=== PATIENT | male | born 1960 | race Caucasian/White ===

== ENCOUNTER 2021-08-05 13:05 | Observation (INO) | payer MEDICARE, MEDICAID, SELFPAY ==
[2021-08-05] VITALS (17 sets, daily range): BP systolic 127–158; BP diastolic 62–90; PULSE 88–103; RESP 14–18; TEMP 36.4–36.8; O2SAT 91–96; BMI 34.1; BMI 35.7
--- NOTE | 2021-08-05 06:30 | EGD_PTH ---
PATIENT: SHERWIN COLEY LOC: [facility] U#:[id number] AGE/SX: 60/M ROOM: [facility] RE08/05/[address]: Dr. Cari Woodward MD : 1960 BED: 1 DIS: 08/05/2021 SPEC #: [id number] RECD: 08/05/21 14:19 STATUS: ELVIA GUZMAN #: [id number] MARGARITO: 08/05/21 06:[address]: Jhonatan Walker DEPT: SURGICAL PATHOLOGY RECD BY: Meg Dhillon ENTERED: 08/06/21 09:34 SP TYPE: EGD BIOPSY OT DR: MD Dr. Jose Magallanes MD Tissues: Stomach, NOS Procedures: Surgery Specimen Level IV Comments: @ Ordering doctor for SUIV edited from to @ by RGOOD at 08/06/21 1345 @ Submitting doctor edited from to @ by RGOOD at 08/06/21 0433 HEADER OPERATION: EGD ([facility]), biopsy PRE-OP DIAGNOSIS: Gastroparesis, erosive esophagitis TISSUE SUBMITTED: Greater curvature ulcer biopsy MICROSCOPIC DIAGNOSIS Ulcer, greater curvature of stomach, biopsy: Chronic gastritis. AM:av 08/09/2021 MICROSCOPIC DESCRIPTION Slides are reviewed. GROSS DESCRIPTION Received in fixative is one container labeled with the patient's name and designated greater curvature biopsy. The specimen consists of multiple irregular fragments of light [place] soft tissue that in aggregate measure 1 x 0.6 x 0.1 cm. The specimen is totally submitted in one cassette. / AM:av 08/06/2021 TC:3 CPT: 45510
--- NOTE | 2021-08-05 06:44 | PCM.HP.BLA ---
History and Physical Date of Admission: 08/05/21 60 M who presents to the office today for nausea and vomiting. He has a past medical history of traumatic brain injury and resides in a retirement. Patient was last seen by [facility] 04.28.21 for evaluation of vomiting with concern for gastric outlet obstruction, abnormal CT of abd/pel, elevated LFT. Started on PPI BID. Possible gastric emptying study. EGD performed 04.27.21. EGD ? congestion, erythema and ulceration in lower third of esophagus consistent with severe esophagitis, LA Grade C esophagitis. Retained food seen in upper portion of gastric body with excessive fluid and bile present. Mild erosions and erythema seen in body and antrum of stomach consistent with gastritis. Biopsy ? reactive gastropathy. CT abd/pel 04.25.21. Markedly distended stomach with tapering at pylorus without mass. Filling defect seen within distal left common iliac vein extending into left leg with left leg edema, suspect DVT. Small right pleural effusion. Suspect cholelithiasis. Diagnosed with COVID 04.04.21 with previous online media director feeling that inflammation a direct result of this. Reports reduced emesis frequency occurring only with exertional process during PT. Family member reports that she feels he is doing much better since this episode. Reports 60lb weight loss with estimation of 40lbs being water weight. ROS Const Constitutional: No anorexia, fatigue, fever(s), weight change or sleep problems Eyes Eyes: No change in vision ENT ENT: No abnormal hearing, difficulty swallowing, mouth lesions, tongue swelling or throat swelling Resp Respiratory: No cough or shortness of breath Cardio Cardiology: No chest pain at rest, chest pain with exertion, shortness of breath or dyspnea on exertion Gastro GI: No difficulty swallowing Genitourinary Male: No difficulty urinating or burning urination Musc Musculoskeletal: No joint pain, joint swelling, muscle weakness or decreased muscle mass Skin Skin: No hair loss in leg, yellowing of the eye, itchy eyes, rash, skin ulcer or skin swelling Neuro Neurology: No abnormal hearing, abnormal movements, confusion, unsteady gait/balance or memory loss Psych Psychiatric: No anxiety, No confusion and No memory loss Endo Endocrine: No fatigue or weight change Aller/Imm Allergy/Immunologic: No itchy eyes, throat swelling or tongue swelling Kristofer/Lymp Hematologic/Lymphatic: No easy bleeding, easy bruising or enlarged lymph nodes Exam Const General: cooperative and comfortable Nutritional Appearance: average body habitus and well nourished [facility] Head: normal to inspection Ears: hearing grossly normal bilaterally Nose: external nose normal Face and sinus: normal facial exam Mouth: oral mucosae normal Throat: posterior oropharynx normal Eyes General: appearance normal, both eyes and all related structures Neck Neck: normal visual inspection Chest Chest palpation & inspection: normal inspection of the chest and normal palpation of entire chest wall Resp Effort & Inspection: normal respiratory effort Auscultation: Bilateral: Clear to Auscultation Cardio Palpation: normal PMI Rate: regular rate Rhythm: regular rhythm GI Inspection: normal to inspection Auscultation: normal bowel sounds Percussion: normal to percussion Palpation: no hepatosplenomegaly Skin General: no rashes or lesions noted Neuro General: patient alert Extrem General: normal to inspection Psych Affect: normal affect Assessment and Plan Assessment and Plan (1) Gastroparesis: Status: Acute Plan - Dr. Israel Friend, DO: I suspect that he has gastroparesis secondary to diabetes mellitus. However we will assess for any inflammation or ulcerations in the distal stomach as was noted previously on his upper endoscopy. At this time he is having less bloating, less nausea and indigestion. He is not on any prokinetics for the stomach. This may have to be addressed in the future. I did express with his power of insurance defense attorney who is his sister that he may need a gastric emptying study. (2) Erosive esophagitis: Status: Acute Plan - Dr. Israel Friend, DO: Patient at this time is on Protonix 40 mg twice a day. We will continue this until he has an upper endoscopy. Hopefully if this is okay we will be able to titrate this to once a day plus or minus a H2 receptor cathleen in the evening. I have re-examined the patient. There are no clinical changes since date of exam.
[2021-08-05] MEDS: Lactated Ringers 1,000 ML 15 ML IV (08:00)
--- NOTE | 2021-08-05 08:54 | OP.EGD_ITS ---
Patient Name: Chacorta Edwards Procedure Date: 08/05/2021 6:17 AM Date of : 1960 Age: 60 Procedure: Upper GI endoscopy Indications: Epigastric abdominal pain Providers: Jhonatan Walker DO Medicines: See the Anesthesia note for documentation of the administered medications Patient Profile: This is a 60 year old male. Refer to note in patient chart for documentation of history and physical. Patient has symptoms of acute epigastric abdominal pain. Complications: No immediate complications. Procedure: Pre-Anesthesia Assessment: - Prior to the procedure, a History and Physical was performed, and patient medications and allergies were reviewed. The patient is competent. The risks and benefits of the procedure and the sedation options and risks were discussed with the patient. All questions were answered and informed consent was obtained. Patient identification and proposed procedure were verified by the physician in the pre-procedure area. Mental Status Examination: alert and oriented. Airway Examination: normal oropharyngeal airway and neck mobility. Respiratory Examination: clear to auscultation. CV Examination: normal. Prophylactic Antibiotics: The patient does not require prophylactic antibiotics. Prior Anticoagulants: The patient has taken no previous anticoagulant or antiplatelet agents. ASA Grade Assessment: II - A patient with mild systemic disease. After reviewing the risks and benefits, the patient was deemed in satisfactory condition to undergo the procedure. The anesthesia plan was to use moderate sedation / analgesia (conscious sedation). Immediately prior to administration of medications, the patient was re-assessed for adequacy to receive sedatives. The heart rate, respiratory rate, oxygen saturations, blood pressure, adequacy of pulmonary ventilation, and response to care were monitored throughout the procedure. The physical status of the patient was re-assessed after the procedure. After obtaining informed consent, the endoscope was passed under direct vision. Throughout the procedure, the patient's blood pressure, pulse, and oxygen saturations were monitored continuously. The gastroscope was introduced through the mouth, and advanced to the second part of duodenum. The upper GI endoscopy was accomplished without difficulty. The patient tolerated the procedure well. Moderate Sedation: Moderate (conscious) sedation was administered by the endoscopy nurse and supervised by the endoscopist. The patient's oxygen saturation, heart rate, blood pressure and response to care were monitored. Total physician intraservice time was 15 minutes. Scope In: 8:36:57 AM Scope Out: 8:43:02 AM Total Procedure Duration Time 0 hours 6 minutes 5 seconds Findings: The examined esophagus was normal. Two non-bleeding cratered gastric ulcers with no stigmata of bleeding were found on the greater curvature of the stomach. The largest lesion was 4 mm in largest dimension. Biopsies were taken with a cold forceps for histology. Verification of patient identification for the specimen was done. Estimated blood loss was minimal. The second portion of the duodenum was normal. Impression: - Normal esophagus. - Non-bleeding gastric ulcers with no stigmata of bleeding. Biopsied. - Normal second portion of the duodenum. Recommendation: - Observe patient in GI recovery unit for ongoing care. - Resume previous diet. - Continue present medications. - Await pathology results. Procedure Code(s): --- Professional --- 97695, Esophagogastroduodenoscopy, flexible, transoral; with biopsy, single or multiple 57505, 59, Moderate sedation services provided by the same physician or other qualified health progressive care unit registered nurse performing the diagnostic or therapeutic service that the sedation supports, requiring the presence of an independent trained observer to assist in the monitoring of the patient's level of consciousness and physiological status; initial 15 minutes of intraservice time, patient age 5 years or older CPT copyright 2017 [employer]. All rights reserved. The codes documented in this report are preliminary and upon nurse tech review may be revised to meet current compliance requirements. Jhonatan Walker DO 08/05/2021 8:53:47 AM This report has been signed electronically. Number of Addenda: 1 Note Initiated On: 08/05/2021 6:17 AM Addendum Number: 1 Addendum Date: 02/16/2022 6:26:15 AM MAC was used as sedation for this procedure. Jhonatan Walker DO 02/16/2022 6:26:21 AM This report has been signed electronically.
--- NOTE | 2021-08-05 08:54 | OP.CCLET_ITS ---
02/16/2022 Gene Cr Re : Upper GI endoscopy procedure for Chacorta Edwards Dear Shaye This procedure was performed on July. My impressions and recommendations are as follows: Impressions : - Normal esophagus. - Non-bleeding gastric ulcers with no stigmata of bleeding. Biopsied. - Normal second portion of the duodenum. Recommendations : - Observe patient in GI recovery unit for ongoing care. - Resume previous diet. - Continue present medications. - Await pathology results. My findings are described in the full procedure note, which is enclosed. If I can be of further assistance, please feel free to contact me at . Sincerely, Jhonatan Walker DO 08/05/2021 8:53:47 AM This report has been signed electronically.
--- NOTE | 2021-08-05 09:29 | EKG12_ITS ---
Test Reason : PREOP Blood Pressure : / mmHG Vent. Rate : 096 BPM Atrial Rate : 096 BPM P-R Int : 112 ms QRS Dur : 130 ms QT Int : 386 ms P-R-T Axes : 052 -38 043 degrees QTc Int : 487 ms Normal sinus rhythm with sinus arrhythmia Left axis deviation Right bundle branch block Abnormal ECG No previous ECGs available Confirmed by BIJAN MARTINEZ, ANDRES ([id number]), editor school photograph CINDY FRIAS ([id number]) on 08/10/2021 10:45:46 AM Referred By: Jose Cr Confirmed By:ANDRES THAKKAR MD
--- NOTE | 2021-08-05 10:39 | SUR.PHASEI ---
have spoke to [facility] and trying to obtain records from pt hospitalization in 05/11 for DVT's per records sent from [facility]. Hospitalist consulted through Dr Denise from Dr walden when attempt to plkace IV through Ultrasound possible DVT. Instructed to hold pt in pacu until seen by hospitalist.
--- NOTE | 2021-08-05 12:56 | EKG12_ITS ---
Test Reason : Blood Pressure : / mmHG Vent. Rate : 088 BPM Atrial Rate : 088 BPM P-R Int : 122 ms QRS Dur : 124 ms QT Int : 390 ms P-R-T Axes : 059 -04 051 degrees QTc Int : 471 ms Normal sinus rhythm with sinus arrhythmia Right bundle branch block Abnormal ECG Confirmed by NADIYA MARTINEZ, CLARA ([id number]), supervising editor news reel CINDY FRIAS ([id number]) on 08/11/2021 8:57:17 AM Referred By: Jose Cr Confirmed By:CLARA HEARN MD
--- NOTE | 2021-08-05 13:07 | VDLE_ITS ---
Reason For Study: swelling RIGHT LEFT GSV is normal. GSV is normal. CFV is compressible, spontaneous, phasic, T/P Trunk is compressible. competent and demonstrates normal PTV is compressible. augmentation. LT PerV is compressible. FV is compressible, spontaneous, phasic, CFV, FV, POP V ,and Profunda V are partially competent and demonstrates normal compressible with decreased flow. augmentation. POP V is compressible, spontaneous, phasic, competent and demonstrates normal augmentation. T/P Trunk is compressible. PTV is compressible. RT PerV is compressible. Procedure This is a venous duplex using B-mode, color flow and spectral Doppler. Exam performed portable in patient room. Fair technical qaulity. Pt is very noncompliant. Pt would not allow the window curtains to be shut or the lights to be turned off. Difficult to see images. A preliminary report was called and/or faxed to PCU kiln charger. VL/Venous Duplex US - Rey Extrem Interpretation Summary There is no evidence of right lower extremity deep vein thrombosis. Partially c ompressible left common femoral, femoral, popliteal and profunda femoral veins suspicous for rony p venous thrombosis. Patent and compressible bilateral great saphenous veins Non-compliant patient Ordering Physician: Cari Woodward Referring Physician: Jose Cr Performed By: Bernardo Gonzales RVT
--- NOTE | 2021-08-05 13:08 | VDUE_ITS ---
Reason For Study: swelling Right Proximal Left Proximal Unable to image right IJ due to line. Left jugular vein is spontaneous, widely Right subclavian vein is spontaneous, widely patent, phasic, with no intraluminal patent, phasic, with no intraluminal echogenicity noted. echogenicity noted. Left subclavian vein is spontaneous, widely Right Lower Arm patent, phasic, with no intraluminal Right radial vein is compressible. echogenicity noted. Right ulnar vein is compressible. Left Arm Right Arm Left axillary vein is spontaneous, patent, Right axillary vein is spontaneous, patent, phasic, competent, compressible and phasic, competent, compressible and demonstrates augmentation. demonstrates augmentation. Left brachial vein is compressible. Right brachial vein is compressible. Left cephalic vein is compressible. Right cephalic vein is compressible. Left basilic vein is compressible. Right basilic vein is compressible. Left Lower Arm Fair technical qaulity. Pt is very Left radial vein is compressible. noncompliant. Pt would not allow the window Left ulnar vein is compressible. curtains to be shut or the lights to be turned off. Difficult to see images. Difficult to image L arm due to contractures. Prelim to the PCU furnace charger. Images for this study are attached to the LE VDU. VL/Venous Duplex US - Rey Extrem Interpretation Summary No evidence for acute deep venous thrombosis bilateral upper extremities with p atent, compressible bilateral cephalic and basilic veins but very non-compliant patient and difficu lt examination of fair quality Ordering Physician: Cari Woodward Referring Physician: Jose Cr Performed By: Bernardo Gonzales RVT ?
[2021-08-05 14:01] LABS: Absolute Lymphocyte Count 1.68 X10^3/uL (0.83-4.51); Absolute Neutrophil Count 6.7 X10^3/uL (2.0-7.7); Basophil# 0.05 X10^3/uL; Basophil% 0.5 % (0-1); Eosinophil# 0.45 X10^3/uL; Eosinophils% 4.7 % (0-5); Hematocrit 42.4 % (40-54); Hemoglobin 14.4 g/dL (13.0-16.5); Lymphocyte # 1.68 X10^3/ul (0.83-4.51); Lymphocyte % 17.4 % (19-41); Mean Corpuscular Hgb 31.1 pg (27.0-32.0); Mean Corpuscular Volume 91.6 fL (80-94); Monocyte# 0.72 X10^3/uL; Monocyte% 7.5 % (0-10); NRBC Flagged by Analyzer 0 % (0-5); Neutrophil # 6.69 X10^3/uL (2.7-7.7); Neutrophil % 69.5 % (47-70); Platelet Count 326 K/mm3 (150-450); RBC Distribution Width CV 12.6 % (11.6-14.6); RBC Distribution Width SD 41.7 fl (35.1-43.9); Red Blood Count 4.63 M/mm3 (4.6-6.2); White Blood Count 9.6 K/mm3 (4.4-11.0)
[2021-08-05 14:38] LABS: ALB/GLOB Ratio 0.6 RATIO (0.9-2.4); AST(SGOT) 13 U/L (15-37); Alanine Aminotransfer ALT/SGPT 36 U/L (16-61); Albumin, Serum 2.8 g/dL (3.2-5.0); Alkaline Phosphatase 107 U/L (45-117); Anion Gap 4 (5-15); BUN 15 mg/dL (7-18); BUN/Creat Ratio 20.1 RATIO (10-20); Calcium,Total 8.8 mg/dL (8.5-10.1); Chloride 98 mmol/L (98-107); Creatinine, Serum 0.75 mg/dL (0.70-1.30); EST Glomerular Filtration Rate 113 mL/min (>60); Est Glom Filt Rate - Afr Amer 136 mL/min (>60); Estimated Creatinine Clearance 85.51 ml/min; Globulin 4.5 g/dL (2.2-4.2); Glucose 259 mg/dL (74-106); Potassium 3.9 mmol/L (3.5-5.1); Protein, Total 7.3 g/dL (6.4-8.2); Sodium Level 135 mmol/L (136-145)
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
--- NOTE | 2021-08-05 15:23 | TREXTCAR_ITS ---
Diet 08/05/21 15:00 Diet: Consistent Carb - Calorie Controlled Food consistency:: Regular Liquid Consistency:: Regular/Thin Dietary Modifications:: Cardiac / Heart Healthy Is pt able to select menu?: No How many daily calories?: 1800 calorie Routine Orders/Code Status Keep PO Greater than or Equal to (%): 94 Routine Lab Work: CBC (within 3 days) and BMP (within 3 days) Therapies Weight Bearing: Weight bearing as tolerated Physical Therapy: Eval and Treat Occupational Therapy: Eval and Treat Allergies/Procedures Done in Hospital Allergies codeine Allergy (Intermediate, Verified 08/05/21 06:08) unknown lorazepam Allergy (Intermediate, Verified 08/05/21 06:08) unknown morphine Allergy (Intermediate, Verified 08/05/21 06:08) unknown Sulfa (Sulfonamide Antibiotics) Allergy (Intermediate, Verified 08/05/21 06:08) unknown Procedures: None Type of Care/Length of Stay Estimated LOS: Convalescent Care Less Than 30 days Type of Care Needed: Skilled Rehab Potential: Good Prognosis: Good Additional Orders/Day of Discharge Day of Discharge: 08/05/21 Dietary and Speech Recommendations Dietitian Recommendations/Changes: Will change diet to 1800 calorie/consistent carbohydrate; cardiac. ONS as needed once PO established at meals. Discharge Plan Admission Admit Date/Time: 08/05/21 13:05 Primary Reason for Your Visit: EGD Attending Provider: Cari Woodward Primary Care Provider: Jose Cr Instructions Additional Instructions / Restrictions: Continue to take your medications as prescribed. Follow-up with Dr. Walker as scheduled. Discharge Orders/Prescriptions Prescriptions: Continued apixaban 5 mg tablet 5 mg PO BID RF: 0 sucralfate [Carafate] 1 gram tablet 1 g PO QACHS RF: 0 cholecalciferol (vitamin D3) 10 mcg (400 unit) capsule 10 mcg PO DAILY RF: 0 cilostazol 100 mg tablet 100 mg PO BID RF: 0 fluticasone propionate [Flonase Allergy Relief] 50 mcg/actuation spray,suspension 1 spray intranasal DAILY RF: 0 arginine (L-arginine) 500 mg capsule 500 mg PO DAILY RF: 0 pantoprazole 40 mg tablet,delayed release (DR/EC) 40 mg PO BID RF: 0 ramipril 2.5 mg capsule 2.5 mg PO QHS RF: 0 potassium chloride 10 mEq Capsule, Extended Release 10 meq PO DAILY RF: 0 atorvastatin 20 mg Tablet 20 mg PO QHS RF: 0 zinc acetate 25 mg (zinc) Capsule 25 mg PO DAILY RF: 0 carbamazepine 100 mg Tablet Extended Release 12 Hr 200 mg PO DAILY RF: 0 capsicum-garlic 200-300 mg Capsule 2 cap PO QHS RF: 0 flaxseed oil 1,000 mg Capsule 1,000 mg PO DAILY RF: 0 metformin 1,000 mg Tablet 1,000 mg PO BID RF: 0 gabapentin [Neurontin] 300 mg Capsule 300 mg PO QHS RF: 0 bisacodyl 5 mg Tablet,Delayed Release (Dr/Ec) 5 mg PO QHS RF: 0 furosemide 20 mg Tablet 20 mg PO DAILY RF: 0 gabapentin [Neurontin] 100 mg Capsule 100 mg PO BID RF: 0 vitamin B complex Capsule 1 cap PO DAILY RF: 0 carbamazepine 100 mg Capsule, Er Multiphase 12 Hr 100 mg PO QHS RF: 0 Calcium Magnesium 500 mg calcium -250 mg Tablet 70 - 500 tab PO BID RF: 0 Referrals / Follow Up: Jhonatan Walker DO [STAFF PHYSICIAN] - Within 2 Weeks Jose Cr MD [Primary Care Provider] - Within 2 Weeks Disposition Disposition (needs filled in before D/C Order can be placed): Detention Facility
--- NOTE | 2021-08-05 15:24 | DS.PCM_ITS ---
Providers Date of Admission: 08/05/21 Date of Discharge: 08/05/21 Primary Care Physician: Dr. Jose Cr MD Diagnosis Discharge Diagnosis (1) Erosive esophagitis: Status: Acute Code(s): K22.10 - Ulcer of esophagus without bleeding (2) Gastroparesis: Status: Acute Code(s): K31.84 - Gastroparesis Medications at Discharge Home Medications apixaban 5 mg tablet 5 mg PO BID 06/03/21 arginine (L-arginine) 500 mg capsule 500 mg PO DAILY 06/03/21 cholecalciferol (vitamin D3) 10 mcg (400 unit) capsule 10 mcg PO DAILY 06/03/21 cilostazol 100 mg tablet 100 mg PO BID 06/03/21 fluticasone propionate 50 mcg/actuation nasal spray,suspension 1 spray INTRANASAL DAILY 06/03/21 pantoprazole 40 mg tablet,delayed release 40 mg PO BID tab 06/03/21 ramipril 2.5 mg capsule 2.5 mg PO QHS 06/03/21 sucralfate 1 gram tablet 1 g PO QACHS 06/03/21 Calcium Magnesium 70 - 500 tab PO BID 08/04/21 atorvastatin 20 mg PO QHS 08/04/21 bisacodyl 5 mg PO QHS 08/04/21 capsicum-garlic 2 cap PO QHS 08/04/21 carbamazepine 100 mg PO QHS 08/04/21 carbamazepine 200 mg PO DAILY 08/04/21 flaxseed oil 1,000 mg PO DAILY 08/04/21 furosemide 20 mg PO DAILY 08/04/21 gabapentin [Neurontin] 100 mg PO BID 08/04/21 gabapentin [Neurontin] 300 mg PO QHS 08/04/21 metformin 1,000 mg PO BID 08/04/21 potassium chloride 10 meq PO DAILY 08/04/21 vitamin B complex 1 cap PO DAILY 08/04/21 zinc acetate 25 mg PO DAILY 08/04/21 Hospital Course Operations None Procedures EGD Summary of Care Provided Minutes Spent on Discharge: 35 Hospital Course: 60-year-old male with past medical history of traumatic brain injury/bipolar disorder, COPD,vascular dementia, history of CVA, type II DM, DVT of the left lower extremity as well as upper extremity, seizure disorder, resident in a long-term who came for outpatient EGD. Patient had been worked up for concern for gastric outlet obstruction. He had an abnormal CT of abdomen and pelvis with elevated LFTs in the outpatient. He is on PPI twice daily. While being prepped for the EGD, assess for peripheral IV were difficult to get. Anesthesia putting a central line. In evaluating his vasculature, patient was felt to have a right upper extremity DVT. There was also concern for a left lower extremity DVT. For review of his medical records, patient has history of left lower extremity DVT. He was admitted to the PCU, his vitals were stable. He underwent duplex ultrasound of his upper and lower extremities bilaterally. Findings were negative for any acute DVT. There was findings in the left common femoral, femoral, popliteal and profunda veins were partially compressible with decreased flow suggestive of old DVT. Patient's vitals continue to be stable. Discussed with ayesha NOWAK for discharge b ack to the halfway facility. Patient's care was discussed with his sister who is his power of attorney law clerk, all questions were answered. Physical Exam Narrative Physical exam: General: Alert, Oriented to self, paranoid, comfortable, not pale, not jaundiced, HEENT: Atraumatic, right IJ access Oral: Moist Mucosa Neck: Supple Lungs: Diminished to auscultation Cardiovascular: HS I+II, regular, no murmurs Abdomen: Bowel Sounds Present, Soft, Non Tender Extremities: Bilateral lower extremity edema +1 with evidence of dark venous changes. Contracture of the left upper extremity Skin: No rashes, No breakdown Neurological: Grossly intact Psych/Mental Status: Appropriate Weight / BMI Weight Weight: 94.5 kg Body Mass Index (BMI) 35.7 ABG / Lab / Microbiology Data Result Diagrams: 08/05/21 13:50 08/05/21 13:50 Laboratory: Laboratory Results - last 24 hr 08/05/21 13:50: WBC 9.6, RBC 4.63, Hgb 14.4, Hct 42.4, MCV 91.6, MCH 31.1, MCHC 34.0, RDW Std Deviation 41.7, RDW Coeff of Janice 12.6, Plt Count 326, MPV 10.0, Immature Gran % (Auto) 0.400, Neut % (Auto) 69.5, Lymph % (Auto) 17.4 L, [place] % (Auto) 7.5, Eos % (Auto) 4.7, Baso % (Auto) 0.5, Absolute Neuts (auto) 6.7, Absolute Lymphs (auto) 1.68, Nucleated RBC % 0 08/05/21 13:50: Sodium 135 L, Potassium 3.9, Chloride 98, Carbon Dioxide 33.0 H, Anion Gap 4 L, BUN 15, Creatinine 0.75, Estim Creat Clear Calc 85.51, Est GFR (MDRD) Af Amer 136, Est GFR (MDRD) Non-Af 113, BUN/Creatinine Ratio 20.1 H, Glucose 259 H, Calcium 8.8, Total Bilirubin 0.20, AST 13 L, ALT 36, Alkaline Phosphatase 107, Total Protein 7.3, Albumin 2.8 L, Globulin 4.5 H, Albumin/Globulin Ratio 0.6 L Meaningful Use Info Meaningful Use Diagnoses (Choose all that apply): None applicable Discharge Plan Admission Admit Date/Time: 08/05/21 13:05 Primary Reason for Your Visit: EGD Attending Provider: Cari Woodward Primary Care Provider: Jose Cr Instructions Additional Instructions / Restrictions: Continue to take your medications as prescribed. Follow-up with Dr. Walker as scheduled. Discharge Orders/Prescriptions Prescriptions: Continued apixaban 5 mg tablet 5 mg PO BID RF: 0 sucralfate [Carafate] 1 gram tablet 1 g PO QACHS RF: 0 cholecalciferol (vitamin D3) 10 mcg (400 unit) capsule 10 mcg PO DAILY RF: 0 cilostazol 100 mg tablet 100 mg PO BID RF: 0 fluticasone propionate [Flonase Allergy Relief] 50 mcg/actuation sp ray,suspension 1 spray intranasal DAILY RF: 0 arginine (L-arginine) 500 mg capsule 500 mg PO DAILY RF: 0 pantoprazole 40 mg tablet,delayed release (DR/EC) 40 mg PO BID RF: 0 ramipril 2.5 mg capsule 2.5 mg PO QHS RF: 0 potassium chloride 10 mEq Capsule, Extended Release 10 meq PO DAILY RF: 0 atorvastatin 20 mg Tablet 20 mg PO QHS RF: 0 zinc acetate 25 mg (zinc) Capsule 25 mg PO DAILY RF: 0 carbamazepine 100 mg Tablet Extended Release 12 Hr 200 mg PO DAILY RF: 0 capsicum-garlic 200-300 mg Capsule 2 cap PO QHS RF: 0 flaxseed oil 1,000 mg Capsule 1,000 mg PO DAILY RF: 0 metformin 1,000 mg Tablet 1,000 mg PO BID RF: 0 gabapentin [Neurontin] 300 mg Capsule 300 mg PO QHS RF: 0 bisacodyl 5 mg Tablet,Delayed Release (Dr/Ec) 5 mg PO QHS RF: 0 furosemide 20 mg Tablet 20 mg PO DAILY RF: 0 gabapentin [Neurontin] 100 mg Capsule 100 mg PO BID RF: 0 vitamin B complex Capsule 1 cap PO DAILY RF: 0 carbamazepine 100 mg Capsule, Er Multiphase 12 Hr 100 mg PO QHS RF: 0 Calcium Magnesium 500 mg calcium -250 mg Tablet 70 - 500 tab PO BID RF: 0 Referrals / Follow Up: Jhonatan Walker DO [STAFF PHYSICIAN] - Within 2 Weeks Jose Cr MD [Primary Care Provider] - Within 2 Weeks Disposition Disposition (needs filled in before D/C Order can be placed): [facility]irement Facility Charges/Coding Visit Charges OBSV E&M: 40986 Observation care discharge
--- NOTE | 2021-08-05 15:37 | CASEMGMT ---
MIS was informed patient will be sent back today. Patient is from [facility]. 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 MIS then called [facility] and spoke with Lisset. Lisset said that is fine if patient returns today. Patient's sister was texting her information. MIS will fax orders. MIS faxed orders to [facility]. Madiha Car DIRECT SERVICE WORKER [employer]
--- NOTE | 2021-08-05 16:00 | NURSING ---
Patient verbally aggressive towards staff, cursing and belligerent. Giving gestures such as the middle finger.
[2021-08-06 07:16] LABS: Bedside Glucose 266 mg/dL (74-106)
== END 2021-08-05 15:17 | disposition skilled nursing facility (03) ==
LOC: EN 13:10 → PCU 13:10
PROVIDERS: Internal Medicine Gastroenterology; Admitting Provider Internal Medicine; PCP Family Medicine; Referring Provider Family Medicine; Visit Provider Internal Medicine
PROC: 0DJ08ZZ Inspection of Upper Intestinal Tract, Via Natural or Artificial Opening Endoscopic (ICD-10-PCS; CPT 43235; principal; 2021-08-05 06:25)
DX: E11.43 Type 2 diabetes mellitus with diabetic autonomic (poly)neuropathy (principal); F01.50 Vascular dementia, unspecified severity, without behavioral disturbance, psychotic disturbance, mood disturbance, and anxiety; J44.9 Chronic obstructive pulmonary disease, unspecified; F31.9 Bipolar disorder, unspecified; G40.909 Epilepsy, unspecified, not intractable, without status epilepticus; K20.80 Other esophagitis without bleeding; F17.200 Nicotine dependence, unspecified, uncomplicated; K31.84 Gastroparesis; E78.5 Hyperlipidemia, unspecified; K25.9 Gastric ulcer, unspecified as acute or chronic, without hemorrhage or perforation; I10 Essential (primary) hypertension; K22.10 Ulcer of esophagus without bleeding; Z79.02 Long term (current) use of antithrombotics/antiplatelets; Z79.01 Long term (current) use of anticoagulants; Z79.899 Other long term (current) drug therapy; Z79.84 Long term (current) use of oral hypoglycemic drugs; Z86.16 Personal history of COVID-19; Z86.718 Personal history of other venous thrombosis and embolism; Z87.820 Personal history of traumatic brain injury; R94.31 Abnormal electrocardiogram [ECG] [EKG]; I45.10 Unspecified right bundle-branch block
CPT/HCPCS: 43239; 36415; 80053; 82962; 85025; 88305; 93005; 93970; 97802; 99218; 99406; J7120; G0378; J2405

== ENCOUNTER 2023-01-11 11:11 | Inpatient (IN) | payer MEDICARE, MEDICAID, SELFPAY ==
[2023-01-11] VITALS (9 sets, daily range): BP systolic 102–134; BP diastolic 58–85; PULSE 88–102; RESP 17–22; TEMP 36.4–37.3; O2SAT 93–100; BMI 33.2
--- NOTE | 2023-01-11 11:42 | CT_ITS ---
STUDY: CT ABDOMEN AND PELVIS WITH CONTRAST - URINARY TRACT REASON FOR EXAM: Male, 62 years old. Pain, ileus RADIATION DOSAGE (If Supplied By Facility): CTDIvol = ( 15.28 ) mGy, DLP = ( 1317.00 ) mGycm TECHNIQUE: IV 100mL Isovue-300 was administered. Transaxial images were obtained from the dome of the diaphragm to the symphysis pubis subsequent to intravenous contrast administration. Multiplanar coronal and sagittal images were reformatted. Individualized Dose Optimization Techniques Were Used For This CT. COMPARISON: FINDINGS: There are bilateral pleural effusions associated with dependent consolidation within the lower lobes. The visualized portions of the heart are within normal limits. There is circumferential wall thickening of the distal esophagus and gastroesophageal junction. There is a retained calcified appearing round focus within the distal esophagus/gastroesophageal junction, may reflect a pill. Normal liver. There is nonvisualization of the gallbladder. Normal spleen. Normal pancreas. Normal bilateral adrenal glands. There is a dilated gas-filled stomach. Normal small intestine. There is circumferential wall thickening of the sigmoid colon and rectum. The appendix is visualized and appears normal. There is diffuse atherosclerotic calcification of the abdominal aorta, without a demonstrated aneurysm. No retroperitoneal adenopathy. Normal right kidney. Normal left kidney. There is a suprapubic Ricci catheter in place. There is bladder wall thickening. Normal osseous structures. CT/Abdomen/Pelvis W IV Cont ONLY IMPRESSION: Dilated and gas filled stomach concerning for gastric outlet obstruction. Circumferential wall thickening of the sigmoid colon and rectum concerning for proctocolitis. Circumferential wall thickening of the bladder consistent with cystitis. Circumferential wall thickening of the distal esophagus which may be secondary to esophagitis; there is associated retained calcified tablet within the distal esophagus/gastroesophageal junction. Small bilateral pleural effusions associated with lower lobe dependent consolidation. Atherosclerosis. Electronically Signed: Tahria Ching MD at 13:01 EDT ,
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
[2023-01-11 11:58] LABS: Absolute Lymphocyte Count 1.65 X10^3/uL (0.83-4.51); Absolute Neutrophil Count 14.5 X10^3/uL (2.0-7.7); Basophil# 0.05 X10^3/uL; Basophil% 0.3 % (0-1); Eosinophil# 0.58 X10^3/uL; Eosinophils% 3.2 % (0-5); Hematocrit 31.2 % (40-54); Hemoglobin 10.1 g/dL (13.0-16.5); Lymphocyte # 1.65 X10^3/ul (0.83-4.51); Lymphocyte % 9.2 % (19-41); Mean Corp Hgb Conc 32.4 g/dL (32-36); Mean Corpuscular Hgb 28.5 pg (27.0-32.0); Mean Corpuscular Volume 87.9 fL (80-94); Mean Platelet Vol. 9.6 fl (6.2-12.0); Monocyte# 0.88 X10^3/uL; Monocyte% 4.9 % (0-10); NRBC Flagged by Analyzer 0 % (0-5); Neutrophil # 14.52 X10^3/uL (2.7-7.7); Neutrophil % 81.4 % (47-70); Platelet Count 717 K/mm3 (150-450); RBC Distribution Width CV 15.9 % (11.6-14.6); RBC Distribution Width SD 50.9 fl (35.1-43.9); Red Blood Count 3.55 M/mm3 (4.6-6.2); White Blood Count 17.9 K/mm3 (4.4-11.0)
[2023-01-11 12:04] LABS: Mucous, Urine 0 SEEN /hpf (<or=2+); Red Blood Cells-Urine 0 SEEN /hpf (0-5)
[2023-01-11 12:09] LABS: ALB/GLOB Ratio 0.4 RATIO (0.9-2.4); AST(SGOT) 17 U/L (15-37); Alanine Aminotransfer ALT/SGPT 28 U/L (16-61); Albumin, Serum 1.9 g/dL (3.2-5.0); Alkaline Phosphatase 63 U/L (45-117); Anion Gap 5 (5-15); BUN 13 mg/dL (7-18); BUN/Creat Ratio 20.5 RATIO (10-20); Calcium,Total 8.1 mg/dL (8.5-10.1); Chloride 102 mmol/L (98-107); Creatinine, Serum 0.63 mg/dL (0.70-1.30); EST Glomerular Filtration Rate 135 mL/min (>60); Est Glom Filt Rate - Afr Amer 164 mL/min (>60); Estimated Creatinine Clearance 99.19 ml/min; Globulin 4.6 g/dL (2.2-4.2); Glucose 162 mg/dL (74-106); Potassium 3.8 mmol/L (3.5-5.1); Protein, Total 6.5 g/dL (6.4-8.2); Sodium Level 138 mmol/L (136-145)
[2023-01-11 12:10] LABS: Lactic Acid 0.9 mmol/L (0.4-1.9)
[2023-01-11 12:10] LABS: Color, Urine Yellow (Yellow); Glucose, Dipstick Normal (Normal); Ketone-Dipstick 5 mg/dl (Negative); Leukocyte Esterase-Dipstick 500 /ul (Negative); Nitrite-Dipstick Negative (Negative); Occult Blood-Urine 10 /ul (Negative); Protein-Dipstick 30 mg/dl (Negative); Specific Gravity, Urine 1.015 (1.002-1.030); Urine Bilirubin Dipstick Negative (Negative); Urine Clarity Sl. Cloudy (Clear); Urine Urobilinogen Normal (Normal)
[2023-01-11 12:35] LABS: Bacteria 1+ /hpf (None Seen); Squamous Epithelial Cells - UA 0-5 SEEN /hpf (0-5); White Blood Cells 10-25 SEEN /hpf (0-5)
--- NOTE | 2023-01-11 12:43 | ED.RN ---
Patient sleeping, awakens easily. Pulse ox at 88%, placed on 2 L NC. Pulse ox currently at 96%. Awaiting test results.
--- OUTSIDE RECORDS SUMMARY | 2023-01-11 13:59 | XMS RPT_ITS | CCD ---
Author Name Unknown Address [address] [place] [address] Organization [facility] Care Team Providers Care Water Analyst Name Role Phone Hayder Tripp Primary Care Provider [phone] JANNA MARTINEZ, DR KARIN Herbert Primary Care Physician [phone] PROVIDER, UNKNOWN Attending Unavailable PROVIDER, UNKNOWN Admitting Unavailable JAMIE FAULKNER Referring Javier SALDIVAR MD, DR KARIN Herbert Primary Care Physician [phone] Karin Saldivar Primary Care Provider [phone] STEVEN BAXTER Attending Unavailable KARIN SALDIVAR Primary Care Unavailab GABY Batista Attending Unavailable GABY ESCAMILLA Admitting Unavailable KARIN SALDIVAR [facility] Care Unavailable PICTRESSA OCONNOR-INVENTORY MANAGER, RADHA Wasserman Attending Valentin SALDIVAR MD, DR KARIN Herbert Primary Care Unavailab le PICCARI BEEF TAGGER-INVENTORY MANAGER, RADHA Wasserman Attending Valentin SALDIVAR MD, DR KARIN Herbert Primary Care Unavailab miky HELLER MD, DR HILL Attending Unavailsharlene SALDIVAR MD, DR KARIN Herbert Primary Care Unavailab miky HELLER MD, DR HILL Attending Unavailsharlene SALDIVAR MD, DR KARIN Herbert Primary Care Unavailab miky MACKENZIE MD, LILIANA Attending Unavailable JANNA MARTINEZ, DR KARIN Herbert Primary Care Unavailab miky FARAH MD, BRANDI Pickens Attending Unavailable JANNA MARTINEZ, DR KARIN Herbert Primary Care Unavailab JESSICA Bustos DO Attending Unavailable JANNA MARTINEZ, DR KARIN Herbert Primary Care Unavailab GABY Batista DO Attending Unavailable JANNA MARTINEZ, DR KARIN Herbert Primary Care Unavailab miky ESCAMILLA DO, GABY Attending Unavailable JANNA MARTINEZ, DR KARIN Herbert Primary Care Unavailab STEVEN Valenzuela Attending Unavailable ANNALEE QUINONES Attending Unavailable JANNA, [facility] Unavailab STEVEN Madison Admitting Unavailable STEVEN JAMIL Attending Unavailable JANNA [facility] Unavailab STEVEN Valenzuela Attending Unavailable STEVEN BAXTER Referring Unavailable JANNA [facility] Unavailab miky SALDIVAR [facility] Unavailab STEVEN Valenzuela Referring Unavailable JANNA [facility] Unavailab STEVEN Valenzuela Referring Unavailable JANNA [facility] Unavailab STEVEN Valenzuela Referring Unavailable JANNA [facility] Unavailab STEVEN Valenzuela Referring Unavailable Allergies Allergy Classification Reported Allergen(s) Allergy Type Date of Onset Reaction(s) Facility (20 sources) Codeine; Translations: [codeine] Drug Allergy 6 Unknown [place] (20 sources) LORazepam; Translations: [lorazepam] Drug Allergy 6 [place] (20 sources) Morphine; Translations: [morphine] Drug Allergy 6 [place] (2 sources) Sulfonamides (Antibiotic); Translations: [SULFA ANTIBIOTICS] Propensity to adverse reactions to drug 6 [place] (7 sources) Sulfamethoxazole ; Translations: [sulfamethoxazol e] Drug Allergy [facility] (19 sources) diazePAM; Translations: [diazepam] Drug Allergy 3 Aggressive behavior (finding), Other: See Comments [facility] (14 sources) Sulfonamides (Antibiotic); Translations: [SULFA (SULFONAMIDE ANTIBIOTICS)] Drug Allergy 2 Unknown [facility] Medications Current Medications Medication Drug Class(es) Dates Sig (Normalized) Sig (Original) acetaminophen 1000 mg oral tablet (8 sources) Start: 04-26-2021 Tylenol Dose : 1,000 mg =, Oral, q8h, PRN Pain, scale 1-10, 0 Refill(s) Start Date: 04/26/21 Status: Ordered Completed/Discontinued Medications Medication Drug Class(es) Dates Sig (Normalized) Sig (Original) 24 hr alfuzosin hydrochloride 10 mg extended release oral tablet (13 sources) alpha-Adrenergic Dania Start: 06-11-2021 alfuzosin SR (UROXATRAL) 10 mg 24 hr tablet Take 10 mg by mouth. 0 06/11/2021 Active Problems Active Problems Problem Classification Problem Date Documented Da te Episodic/Chronic Acute and unspecified renal failure (1 source) Acute renal failure syndrome; Translations: [Acute kidney failure, unspecified] Onset: 1 Episodic Delirium, dementia, and amnestic and other cognitive disorders (2 sources) Dementia; Translations: [Unspecified dementia without behavioral disturbance] Onset: 1 Chronic Diabetes mellitus without complication (1 source) Type 2 diabetes mellitus without complication; Translations: [Type 2 diabetes mellitus without complications] Onset: 1 Chronic Diabetes mellitus without complication (1 source) Hyperglycemia; Translations: [Hyperglycemia, unspecified] Onset: 1 Episodic Diseases of white blood cells (1 source) Leukocytosis; Translations: [Elevated white blood cell count, unspecified] Onset: 1 Chronic Disorders of lipid metabolism (5 sources) Hyperlipidemia; Translations: [Hyperlipidemia, unspecified] Onset: 1 Chronic Esophageal disorders (4 sources) Gastroesophageal reflux disease 06-09-2021 Chronic Essential hypertension (2 sources) Essential hypertension; Translations: [Essential (primary) hypertension] Onset: 1 Chronic Genitourinary symptoms and ill-defined conditions (10 sources) Retention of urine; Translations: [Retention of urine, unspecified] Onset: 3 06-07-2021 Episodic Malaise and fatigue (1 source) Asthenia; Translations: [Weakness] Onset: 1 Episodic Mood disorders (2 sources) Bipolar disorder; Translations: [Bipolar disorder, unspecified] Onset: 1 Chronic Other circulatory disease (1 source) History of transient ischemic attack; Translations: [Personal history of transient ischemic attack (TIA), and cerebral infarction without residual deficits] Onset: 1 Episodic Other diseases of bladder and urethra (1 source) Bladder neck obstruction; Translations: [Bladder-neck obstruction] Onset: 1 Chronic Other diseases of bladder and urethra (2 sources) Neurogenic bladder; Translations: [Neuromuscular dysfunction of bladder, unspecified] Chronic Other diseases of bladder and urethra (1 source) Neuromuscular dysfunction of bladder, unspecified; Translations: [Neurogenic bladder] Onset: 3 Chronic Other diseases of bladder and urethra (3 sources) Urethral ulcer; Translations: [Other specified disorders of urethra] 04-26-2022 Episodic Other diseases of kidney and ureters (5 sources) Obstructive nephropathy 06-07-2021 Episodic Other diseases of kidney and ureters (3 sources) Hydronephrosis; Translations: [Unspecified hydronephrosis] Episodic Other diseases of veins and lymphatics (4 sources) Peripheral venous insufficiency 06-09-2021 Episodic Other fractures (1 source) Collapse of vertebra; Translations: [Collapsed vertebra, not elsewhere classified, site unspecified, initial encounter for fracture] Onset: 1 Episodic Other injuries and conditions due to external causes (1 source) H/O: injury; Translations: [Personal history of other (healed) physical injury and trauma] Onset: 1 Episodic Other lower respiratory disease (1 source) H/O: respiratory disease; Translations: [Personal history of other diseases of the respiratory system] Onset: 1 Episodic Other nervous system disorders (1 source) 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; Translations: [Personal history of other diseases of the nervous system and sense organs] Onset: 1 Episodic Other nutritional; endocrine; and metabolic disorders (1 source) Obesity; Translations: [Obesity, unspecified] Onset: 1 Chronic Other upper respiratory disease (2 sources) Chronic rhinitis; Translations: [Chronic rhinitis] Onset: 3 Chronic Otitis media and related conditions (2 sources) Chronic mucoid otitis media, bilateral; Translations: [Chronic mucoid otitis media, bilateral] Onset: 3 Chronic Phlebitis; thrombophlebitis and thromboembolism (4 sources) Deep venous thrombosis of lower extremity 06-09-2021 Episodic Residual codes; unclassified (1 source) Disorientated; Translations: [Disorientation, unspecified] Onset: 1 Episodic Residual codes; unclassified (1 source) Tobacco user; Translations: [Tobacco use] Onset: 1 Episodic Past or Other Problems Problem Classification Problem Date Documented Date Episodic/Chronic Complication of device; implant or graft (3 sources) Infection and inflammatory reaction due to indwelling urethral catheter, subsequent encounter; Translations: [Urinary tract infection associated with catheterization of urinary tract, unspecified indwelling urinary catheter type, subsequent encounter] Onset: 06-28-2022 Episodic Other diseases of bladder and urethra (2 sources) Other specified disorders of urethra; Translations: [Urethral erosion] Onset: 06-28-2022 Episodic Other diseases of kidney and ureters (2 sources) Unspecified hydronephrosis; Translations: [Hydronephrosis, unspecified hydronephrosis type] Onset: 08-12-2022 Episodic Urinary tract infections (6 sources) Urinary tract infection, site not specified; Translations: [Recurrent UTI] Onset: 06-28-2022 Episodic Results Test Name Value Interpretation Reference Range Facil ity Vital Signs Date Time Vital Sign Value Performing Clinician Facility 10-19-2022 09:42-0400 Body height 167.6 cm Annalee Solstice Work Phone: [facility] 10-19-2022 09:42-0400 Heart rate 118 /min [employer] Work Phone: [facility] 10-19-2022 09:42-0400 SaO2% (BldA) [Mass fraction] 92 % [employer] Work Phone: [facility] 04-26-2021 00:05-0500 Diastolic blood pressure 85 mm[Hg] LIZ ANAND MD [facility] 04-26-2021 00:05-0500 Heart rate 75 /min LIZ ANAND MD [facility] 04-26-2021 00:05-0500 Respiratory rate 18 /min LIZ ANAND MD [facility] 04-26-2021 00:05-0500 Systolic blood pressure 125 mm[Hg] LIZ ANAND MD [facility] 04-25-2021 17:41-0500 Body temperature 97.88 [degF] LIZ ANAND MD [facility] 04-25-2021 17:41-0500 Diastolic blood pressure 105 mm[Hg] LIZ ANAND MD [facility] 04-25-2021 17:41-0500 Heart rate 114 /min LIZ ANAND MD [facility] 04-25-2021 17:41-0500 Mean blood pressure 120 mm[Hg] LIZ ANAND MD [facility] 04-25-2021 17:41-0500 Respiratory rate 18 /min LIZ ANAND MD [facility] 04-25-2021 17:41-0500 Systolic blood pressure 150 mm[Hg] LIZ ANAND MD [facility] 04-23-2021 07:17-0500 Body temperature 98.24 [degF] DARA WADDELL BEEF TAGGER-INVENTORY MANAGER [facility] 04-23-2021 07:17-0500 Diastolic blood pressure 85 mm[Hg] DARA WADDELL BEEF TAGGER-INVENTORY MANAGER [facility] 04-23-2021 07:17-0500 Heart rate 83 /min DARA RIZZARDI BEEF TAGGER-INVENTORY MANAGER [facility] 04-23-2021 07:17-0500 Reason For Taking VItal Signs DARA RIZZARDI BEEF TAGGER-INVENTORY MANAGER [facility] 04-23-2021 07:17-0500 Respiratory rate 20 /min DARA RIZZARDI BEEF TAGGER-INVENTORY MANAGER [facility] 04-23-2021 07:17-0500 Systolic blood pressure 144 mm[Hg] DARA RIZZARDI BEEF TAGGER-INVENTORY MANAGER [facility] 04-23-2021 05:50-0500 Body temperature 98.24 [degF] DARA RIZZARDI BEEF TAGGER-INVENTORY MANAGER [facility] 04-23-2021 05:50-0500 Diastolic blood pressure 79 mm[Hg] DARA RIZZARDI BEEF TAGGER-INVENTORY MANAGER [facility] 04-23-2021 05:50-0500 Heart rate 91 /min DARA RIZZARDI BEEF TAGGER-INVENTORY MANAGER [facility] 04-23-2021 05:50-0500 Respiratory rate 20 /min DARA RIZZARDI BEEF TAGGER-INVENTORY MANAGER [facility] 04-23-2021 05:50-0500 Systolic blood pressure 138 mm[Hg] DARA RIZZARDI BEEF TAGGER-INVENTORY MANAGER [facility] 04-22-2021 22:53-0500 Body temperature 98.6 [degF] DARA RIZZARDI BEEF TAGGER-INVENTORY MANAGER [facility] 04-22-2021 22:53-0500 Diastolic blood pressure 75 mm[Hg] DARA RIZZARDI BEEF TAGGER-INVENTORY MANAGER [facility] 04-22-2021 22:53-0500 Heart rate 87 /min DARA RIZZARDI BEEF TAGGER-INVENTORY MANAGER [facility] 04-22-2021 22:53-0500 Mean blood pressure 102 mm[Hg] DARA RIZZARDI BEEF TAGGER-INVENTORY MANAGER [facility] 04-22-2021 22:53-0500 Reason For Taking VItal Signs DARA RIZZARDI BEEF TAGGER-INVENTORY MANAGER [facility] 04-22-2021 22:53-0500 Respiratory rate 20 /min DARA RIZZARDI BEEF TAGGER-INVENTORY MANAGER [facility] 04-22-2021 22:53-0500 Systolic blood pressure 157 mm[Hg] DARA RIZZARDI BEEF TAGGER-INVENTORY MANAGER [facility] 04-22-2021 20:03-0500 Heart rate 94 /min DARA RIZZARDI BEEF TAGGER-INVENTORY MANAGER [facility] 04-22-2021 20:03-0500 Reason For Taking VItal Signs DARA RIZZARDI BEEF TAGGER-INVENTORY MANAGER [facility] 04-22-2021 16:20-0500 Mean blood pressure 89 mm[Hg] DARA RIZZARDI BEEF TAGGER-INVENTORY MANAGER [facility] 04-22-2021 07:46-0500 Mean blood pressure 91 mm[Hg] DARA RIZZARDI BEEF TAGGER-INVENTORY MANAGER [facility] 04-21-2021 17:01-0500 Heart rate 92 /min DARA RIZZARDI BEEF TAGGER-INVENTORY MANAGER [facility] 04-21-2021 08:22-0500 Body temperature 98.42 [degF] DARA RIZZARDI BEEF TAGGER-INVENTORY MANAGER [facility] 04-21-2021 08:22-0500 Heart rate 99 /min DARA RIZZARDI BEEF TAGGER-INVENTORY MANAGER [facility] 04-20-2021 20:03-0500 Heart rate 100 /min DARA RIZZARDI BEEF TAGGER-INVENTORY MANAGER [facility] 04-20-2021 19:05-0500 Body height 170.2 cm DARA RIZZARDI BEEF TAGGER-INVENTORY MANAGER [facility] 04-20-2021 19:05-0500 Body weight 100 kg DARA RIZZARDI BEEF TAGGER-INVENTORY MANAGER [facility] 04-20-2021 19:05-0500 Body weight 34.52 kg/m2 DARA RIZZARDI BEEF TAGGER-INVENTORY MANAGER [facility] 04-20-2021 17:39-0500 Heart rate 99 /min DARA ELIUDARDI BEEF TAGGER-INVENTORY MANAGER [facility] 04-20-2021 06:20-0500 Body height 170.2 cm DARAMIKY KLINEARDI BEEF TAGGER-INVENTORY MANAGER [facility] 04-20-2021 06:20-0500 Body weight 100 kg DARAMIKY KLINEARDI BEEF TAGGER-INVENTORY MANAGER [facility] 04-20-2021 06:20-0500 diastolic 88 mm[Hg] DARAMIKY KLINEARDI BEEF TAGGER-INVENTORY MANAGER [facility] 04-20-2021 06:20-0500 Heart rate 108 /min DARAMIKY KLINEARDI BEEF TAGGER-INVENTORY MANAGER [facility] 04-20-2021 06:20-0500 systolic 143 mm[Hg] DARAMIKY KLINEARDI BEEF TAGGER-INVENTORY MANAGER [facility] 04-04-2021 16:31-0500 Diastolic blood pressure 75 mm[Hg] LIZ ANAND MD [facility] 04-04-2021 16:31-0500 Heart rate 75 /min LIZ ANAND MD [facility] 04-04-2021 16:31-0500 Respiratory rate 18 /min LIZ ANAND MD [facility] 04-04-2021 16:31-0500 Systolic blood pressure 145 mm[Hg] LIZ ANAND MD [facility] 04-04-2021 12:05-0500 Body temperature 98.78 [degF] LIZ ANAND MD [facility] 04-04-2021 12:05-0500 Diastolic blood pressure 91 mm[Hg] LIZ ANAND MD [facility] 04-04-2021 12:05-0500 Heart rate 96 /min LIZ ANAND MD [facility] 04-04-2021 12:05-0500 Respiratory rate 18 /min LIZ ANAND MD [facility] 04-04-2021 12:05-0500 Systolic blood pressure 169 mm[Hg] LIZ ANAND MD [facility] 04-26-2019 14:40-0500 Body Temperature 97 [degF] [facility] [place] 04-26-2019 14:40-0500 BP Diastolic 75 mm[Hg] [place] 04-26-2019 14:40-0500 BP Systolic 133 mm[Hg] [place] 04-26-2019 14:40-0500 Pulse (Heart Rate) 88 /min [place] 04-26-2019 14:40-0500 Pulse Oximetry 94 % [place] 04-26-2019 14:40-0500 Respiratory Rate 18 /min [facility] [place] 04-26-2019 12:26-0500 BMI (Body Mass Index) 35.87 kg/m2 [facility] [place] 04-26-2019 12:26-0500 Body weight 103.87 kg [place] 04-26-2019 12:26-0500 Height 170.2 cm Gaby [place] Encounters Encounter Date Encounter Type Care Provider Facility Start: 12-20-2022 ambulatory KARIN Sarmiento acility:[facility] Start: 12-20-2022 End: 12-20-2022 Subsequent hospital visit by physician [facility] Work Phone: Molecular Imaging Procedures Date Procedure Procedure Detail Performing Clinician Start: 12-20-2022 Kidney img morpholog y vascular flow 1 w/rx Steven Baxter MD Work Phone: Start: 04-26-2019 OPERATIVE REPORT 3m Sca nning Start: 04-26-2019 Gluc bld gluc mntr d ev cleared fda spec home use Gaby Escamilla Work Phone: Start: 04-26-2019 Blood count hemoglobin Karin Mendiola Work Phone: Start: 04-26-2019 Comprehensive metabo lic panel Karin Mendiola Work Phone: Start: 04-26-2019 Ecg routine ecg w/le ast 12 lds w/i&r Karin Mendiola Work Phone: Cystoscopy DR STEVEN HIGUERA MD Plan of Treatment Date Care Activity Detail Author Start: 07-14-2025 DIABETES SCREEN DIABETES SCREEN [facility] Start: 06-25-2023 End: 10-22-2023 US KIDNEY/BLADDER US KIDNEY/BLADDER Radiology Routine Neurogenic bladder Urinary retention Expected: 06/25/2023, Expires: 10/22/2023 [facility] Work Phone: Immunizations Immunization Date Immunization Notes Care Provider Xiomara hayes 06-18-2020 SARS-CoV-2 mRNA (tovikaseran) vaccine DARA WADDELL BEEF TAGGER-INVENTORY MANAGER [facility] Payers Date Payer Category Payer Medicaid [facility] MED[facility] MYC ARE [facility] MEDICA[facility] [id number] 2022-Present [phone] [address] [place] [address] Medicaid [id number] 2022 Medicare [facility] MED[facility] PPO [id number] 2022-Present [phone] [address] [address] [place] [address] PPO [id number] 2022 Private Health Insurance [id number] 2022 Private Health Insurance [id number] 2019 Medicaid [id number] 1960 Unknown [id number] 1960 Unknown [id number]. 2. 1960 Unknown [id number]. 2.62 1958 Unknown [id number]. [id number] 1958 Unknown [id number]. 2.62 1958 Unknown [id number]. [id number] 1958 Unknown [id number]. 2.62 1958 Unknown [id number]. [id number] 1960 Unknown [id number]. [id number] 1960 Unknown [id number] [id number] Social History Date Type Detail Facility Start: 04-26-2019 Tobacco smoking status NHIS Current every day smoker [place], [place] Start: 04-26-2019 Alcohol intake Current drinke r of alcohol (finding) [place] Start: 04-22-2019 Tobacco Comment 6 times a day. [place] Start: 03-13-2016 Alcohol Comment Former [facility] [place], [place] Start: 1960 Sex Assigned At Not on file [place] Sex Assigned At Male [facility] Start: 06-07-2021 Light tobacco smoker (finding) [facility] Tobacco smoking status HIIS Tobacco smoking consumption unknown [facility] Start: 06-28-2022 Tobacco smoking status HIIS Never smoked tobacco [facility] Start: 06-28-2022 Tobacco use and exposure Smokeless tobacco non-user [facility] Start: 06-28-2022 End: 10-19-2022 Alcohol intake Lifetime non-drinker (finding) [facility] Start: 10-19-2022 History of Social function [facility] Start: 10-19-2022 Tobacco use panel [facility] National Score (1-100), lower number is lower risk 74 [facility] Clinical Notes 04-04-2021 to 12-20-2022 Reva Rider CNMT - 12/20/2022 3:00 PM Edmond Quinones PA-C - 10/19/2022 9:46 AM EDTTelephone Encounter - Adri Toledo RN - 09/22/2022 4:19 PM EDTLaboratoryLaboratory Note Date & Type Note Facility 12-20-2022 Note HNO ID: [id number] Author: Reva Rider CNMT Service: Radiology Author Type: Technologist Type: Progress Notes Filed: 12/20/2022 4:11 PM Note Text: RADIOLOGY SERVICE PROGRESS NOTE SERVICE DATE: 12/20/2022 SERVICE TIME: 3:52 PM PATIENT IDENTITY VERIFICATION COMPLETED USING TWO (2) STANDARD IDENTIFIERS: Name and Date of confirmed by patient verbally and Name and Date of confirmed by identification band FALL SCREENING: Has the patient had 2 falls in the last year or 1 fall with injury or currently using an Ambulatory Assistive Device (Walker, Cane, Wheelchair, Crutches, etc.)? Yes, Patient High Risk for Falls What interventions were put in place to prevent falls during this visit? [place] Risk Wristband Applied, Offered Assistance with Transfers/Clothing, and Increased Observations by Caregivers PATIENT GENDER DATA: .male ALLERGIES: Reviewed and unchanged MEDICATIONS REVIEWED: Not applicable PATIENT RELEVANT IMPLANT DATA REVIEWED: Not Applicable CREATININE: Creatinine Date Value Ref Range Status 07/14/2022 0.57 (L) 0.73 - 1.22 mg/dL Final 11/13/2010 0.8 0.8 - 1.4 MG/DL Final Estimated Glomerular Filtration Rate Date Value Ref Range Status 07/14/2022 110 >=60 mL/min/1.73m? Final Comment: Estimated Glomerular Filtration Rate (eGFR) is calculated using the 2020 CKD-EPI creatinine equation. This equation utilizes serum creatinine, sex, and age as parameters. The creatinine assay has traceable calibration to isotope dilution-mass spectrometry. Refer to KDIGO guidelines for clinical interpretation. In patients with unstable renal function, e.g. those with acute kidney injury, the eGFR may not accurately reflect actual GFR. P.O.C.T. RESULTS: N/A December 20, [address] PERFORMED: No IV SITE: Ambulatory: A peripheral IV was started in the Right antecubital site with a Angio cath: 22 gauge. POST EXAM PIV STATUS: Discontinued PROCEDURE TYPE: NM INJECT: Renal with lasix. 10.9 mCi Tc99m MAG-3. Lasix 40 milligrams intravenous at 16:10. ADMINISTRATION TIME: 15:38 PATIENT DISCHARGED TO: Ambulatory patient, left [place] department area. A Diagnostic radioactive procedure has taken place, with no further precautions necessary other than routine body substance precautions. More information regarding radiation safety can be found using this link: [email or web address] SIGNATURE: TREVON Myrick PATIENT NAME: Chacorta Edwards DATE: December 20, 2022 TIME: 3:52 PM PAGER/CONTACT #: [facility] 12-20-2022 History of Presen t illness Narrative RADIOLOGY SERVICE PROGRESS NOTE SERVICE DATE: 12/20/2022 SERVICE TIME: 3:52 PM PATIENT IDENTITY VERIFICATION COMPLETED USING TWO (2) STANDARD IDENTIFIERS: Name and Date of confirmed by patient verbally and Name and Date of confirmed by identification band FALL SCREENING: Has the patient had 2 falls in the last year or 1 fall with injury or currently using an Ambulatory Assistive Device (Walker, Cane, Wheelchair, Crutches, etc.)? Yes, Patient High Risk for Falls What interventions were put in place to prevent falls during this visit? [place] Risk Wristband Applied, Offered Assistance with Transfers/Clothing, and Increased Observations by Caregivers PATIENT GENDER DATA: .male ALLERGIES: Reviewed and unchanged MEDICATIONS REVIEWED: Not applicable PATIENT RELEVANT IMPLANT DATA REVIEWED: Not Applicable CREATININE: Creatinine Date Value Ref Range Status 07/14/2022 0.57 (L) 0.73 - 1.22 mg/dL Final 11/13/2010 0.8 0.8 - 1.4 MG/DL Final Estimated Glomerular Filtration Rate Date Value Ref Range Status 07/14/2022 110 >=60 mL/min/1.73m Final Comment: Estimated Glomerular Filtration Rate (eGFR) is calculated using the 2020 CKD-EPI creatinine equation. This equation utilizes serum creatinine, sex, and age as parameters. The creatinine assay has traceable calibration to isotope dilution-mass spectrometry. Refer to KDIGO guidelines for clinical interpretation. In patients with unstable renal function, e.g. those with acute kidney injury, the eGFR may not accurately reflect actual GFR. P.O.C.T. RESULTS: N/A December 20, [address] PERFORMED: No IV SITE: Ambulatory: A peripheral IV was started in the Right antecubital site with a Angio cath: 22 gauge. POST EXAM PIV STATUS: Discontinued PROCEDURE TYPE: NM INJECT: Renal with lasix. 10.9 mCi Tc99m MAG-3. Lasix 40 milligrams intravenous at 16:10. ADMINISTRATION TIME: 15:38 PATIENT DISCHARGED TO: Ambulatory patient, left [place] department area. A Diagnostic radioactive procedure has taken place, with no further precautions necessary other than routine body substance precautions. More information regarding radiation safety can be found using this link: [email or web address] SIGNATURE: TREVON Myrick PATIENT NAME: Chacorta Edwards DATE: December 20, 2022 TIME: 3:52 PM PAGER/CONTACT #: documented in this encounter [facility] 12-08-2022 Note HNO ID: [id number] Author: Chacorta Tran RT(R) Service: Nuclear Medicine Author Type: Technologist Type: Progress Notes Filed: 12/08/2022 2:46 PM Note Text: RADIOLOGY SERVICE PROGRESS NOTE DATE OF SERVICE: December 08, 2022 TIME OF SERVICE: 1445 EVENT: DIFFICULT IV ACCESS - Unsuccessful IV attempts: specify number of attempts 6, additional personnel that assisted N/A and 3 different health care workers. ADDITIONAL EVENT DETAILS: N/A Patient was advised to reschedule [facility] a [facility] with specialized IV staff SIGNATURE: RT Ana(R) PATIENT NAME: Chacorta Edwards DATE: December 08, 2022 TIME: 2:44 PM PAGER/CONTACT #: [facility] 10-19-2022 Note HNO ID: [id number] Author: Annalee Quinones PA-C Service: ? Author Type: Physician Rubber Chemist Type: Progress Notes Filed: 10/19/2022 11:03 AM Note Text: ESTABLISHED PATIENT OFFICE VISIT HISTORY OF PRESENT ILLNESS: Chacorta Edwards is a 61 year old male, There were no vitals taken for this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 Allergies not listed. MELI Screening Labs: Lab Results Component Value Date WBC 8.2 07/05/2022 HGB 11.5 (L) 07/05/2022 HCT 34.0 (L) 07/05/2022 MCV 90.2 07/05/2022 PLT 366 07/05/2022 Lab Results Component Value Date NA 131 (L) 07/05/2022 K 4.2 07/05/2022 CL 99 07/05/2022 CO2 29 07/05/2022 BUN 8 (L) 07/05/2022 CREATININE 0.51 (L) 07/05/2022 GLUCOSE 98 07/05/2022 CALCIUM 7.7 (L) 07/05/2022 PROT 5.7 (L) 07/05/2022 ALKPHOS 78 07/05/2022 AST 35 07/05/2022 ALT 20 07/05/2022 EGFR >90.0 07/05/2022 No echocardiogram results found for the past 14 days 04/15/19 (Final) Narrative Ordered by an unspecified provider. [facility] 07-28-2022 Miscellaneous Notes Patient's sister called and stated that the patient will be having tubes put in his ears on July. Her question is, if you think the anesthesia will affect his kidneys? Milagros Melton MA documented in this encounter [facility] 07-19-2022 Miscellaneous Notes Patients sister Sunita notified. She would like to call radiology in [place] and schedule herself because she also needs to schedule transportation. She will let us know when the scan is scheduled for so we can get patient scheduled for f/u [facility] Cma There is no evidence of a pus pocket or abscess in the urinary tract. There is some swelling in both kidneys that will require additional testing. There are also several incidental findings. I recommend a diuretic renal scan to assess for blockage of his kidneys. I will order this test. I would like to see him back with these results. Please schedule follow up with renal scan results. Thanks Patient's sister called for patient CT result. Please advise Erlinda Potts MA documented in this encounter [facility] 07-14-2022 Note HNO ID: [id number] Author: RT Jacqueline(R) Service: ? Author Type: Water Analyst Type: Progress Notes Filed: 07/14/2022 4:15 PM Note Text: Radiology Service Progress Note DATE OF SERVICE: July 14, 2022 TIME: 4:14 PM PATIENT IDENTITY VERIFICATION COMPLETED USING TWO (2) STANDARD IDENTIFIERS: Name and Date of confirmed by patient verbally. FALL SCREENING: Has the patient had 2 falls in the last year or 1 fall with injury or currently using an Ambulatory Assistive Device (Walker, Cane, Wheelchair, Crutches, etc.)? No PATIENT GENDER DATA: Male PATIENT RELEVANT IMPLANT DATA REVIEWED: Yes ALLERGIES: Reviewed and unchanged CONTRAST ALLERGY: NO. EXAM: CT -CONTRAST INDUCED NEPHROPATHY RISK FACTORS: Patient age > 60 years CREATININE: Creatinine Date Value Ref Range Status 07/14/2022 0.57 (L) 0.73 - 1.22 mg/dL Final 11/13/2010 0.8 0.8 - 1.4 MG/DL Final Estimated Glomerular Filtration Rate Date Value Ref Range Status 07/14/2022 110 >=60 mL/min/1.73m? Final Comment: Estimated Glomerular Filtration Rate (eGFR) is calculated using the 2020 CKD-EPI creatinine equation. This equation utilizes serum creatinine, sex, and age as parameters. The creatinine assay has traceable calibration to isotope dilution-mass spectrometry. Refer to KDIGO guidelines for clinical interpretation. In patients with unstable renal function, e.g. those with acute kidney injury, the eGFR may not accurately reflect actual GFR. P.O.C.T. RESULTS: POC done: Yes, See Lab Tab July 14, 2022 TREATMENT: N/A PERIPHERAL IV DATA: Ambulatory: A peripheral IV was started in the Right hand with a Angio cath: 22 gauge. RADIOLOGY DEPARTMENT: CT; Exam(s) Completed: urogram SIGNATURE: RT Beatrice(R) PATIENT NAME: Chacorta Edwards DATE: July 14, 2022 TIME: 4:14 PM [facility] 06-28-2022 Note HNO ID: [id number] Author: Steven Baxter MD Service: ? Author Type: Physician Type: Progress Notes Filed: 06/28/2022 9:01 AM Note Text: [facility] ESTABLISHED PATIENT FOLLOW-UP NOTE PATIENT: Chacorta Edwards (61 year old) PCP: Karin Saldivar MD SUMMARY: Urinary retention. High-volume (4 L) with obstructive nephropathy. 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 Managed with chronic indwelling Ricci catheter since 03/2021. *BT. *Vascular dementia. *Medical POA-Sunita. Urethral erosion. Recurrent UTI. ASSESSMENT: 1. Urinary retention - ICD9: 788.20, ICD10: R33.9 (primary diagnosis) 2. Recurrent UTI - ICD9: 599.0, ICD10: N39.0 3. Urethral erosion - ICD9: 599.84, ICD10: N36.8 PLAN: #1 Chronic, unstable. Continue indwelling Ricci. Change Ricci every 2 weeks to decrease colonization. Keep Ricci catheter off traction and secured to the thigh at all times with plenty of slack in the tubing. #2 Mgmt as above. Consider SPT insertion next visit. Given the patient's multiple medical comorbidities, including acute DVT, IR-guided placement is safest. #3 Chronic, unstable. I am not convinced that he is having recurrent UTI. He is likely colonized with bacteria from the chronic Ricci. The drainage is likely due to excessive tension on the Ricci catheter causing bladder spasms. Change Ricci every 2 weeks to minimize colonization. Ricci care as above (#1). Obtain CT urogram to rule out deep tissue infection. Follow up with results. FOLLOW UP: Return in about 2 weeks (around 07/12/2022) for CT results. Please obtain [place] records prior to next visit.. CHIEF COMPLAINT: Patient presents with: MRSA HISTORY OF PRESENT ILLNESS: The patient was last seen by me in 2021. Prior notes were reviewed. The patient is accompanied by his aide. His POA, Sunita, is on the cell phone. According to Sunita, the patient has had two recent UTIs requiring antibiotic treatments. The UTIs are characterized by drainage from penis aroudn the Ricci. The drainage was once green in color. This drainage was cultured and was consistent with MRSA. The patient has seen ID who was recommending a cystoscopy to rule out deep infection. The patient was recently diagnosed with an acute LE DVT. ROMELIA/AUASS FORMS No question data found. REVIEW OF SYSTEMS: Constitutional: fevers or chills - denies ALLERGIES: ALLERGIES Allergen Reactions Codeine Unknown Lorazepam Unknown Morphine Unknown Sulfa (Sulfonamide * Unknown Diazepam Other: See Comments MEDICATIONS: sodium chloride (NaCl) 0.9% injection solution alfuzosin SR (UROXATRAL) 10 mg 24 hr tablet Take 10 mg by mouth. ELIQUIS 2.5 mg tab(s) atorvastatin (LIPITOR) 20 mg tablet carBAMazepine XR (TEGRETOL XR) 100 mg 12 hr tablet Take by mouth. carBAMazepine chewable (TEGRETOL) 100 mg chewable tablet bisacodyl EC (DULCOLAX) 5 mg EC tablet Take by mouth. cefdinir (OMNICEF) 300 mg capsule cilostazol (PLETAL) 100 mg tablet doxycycline hyclate (VIBRAMYCIN) 100 mg capsule famotidine (PEPCID) 20 mg tablet Take 20 mg by mouth. gabapentin (NEURONTIN) 300 mg capsule hydrOXYzine pamoate (VISTARIL) 25 mg capsule lidocaine (XYLOCAINE) 5 % ointment metFORMIN (GLUCOPHAGE) 1,000 mg tablet nicotine (NICOTROL) 10 mg inhaler Inhale 10 mg as instructed. pantoprazole DR (PROTONIX) 20 mg tablet PAST HISTORY: History reviewed. No pertinent past medical history. DM HLD Vascular dementia History reviewed. No pertinent surgical history. History reviewed. No pertinent family history. Social History Tobacco Use Smoking status: Never Smokeless tobacco: Never Substance Use Topics Alcohol use: Never Drug use: Never PHYSICAL EXAMINATION: BP 140/70 Ht 167.6 cm (5' 6 ) Wt 93.1 kg (205 lb 3.2 oz) BMI 33.12 kg/m? Genitourinary: (1) Rectal: . (2) CVA: . (3) Genital: Ricci in place, urine esparza yellow. Ricci is on traction. (4) Gonads: . (5) Other: . Constitutional: In no acute distress. Well appearing. Respiratory: Normal respiratory effort without use of accessory muscles. Musculoskeletal: Nonambulatory, in wheel chair. Cardiovascular: Gastrointestinal: DATA: Clinic: URINALYSIS: N/a Laboratory: No results found for: CREAT PSA: No results found for: PSA Cultures: No flowsheet data found. Susceptibility Tests - Past 1 Year No results found for the last 365 days. MEDICAL DECISION MAKING PROBLEM(S): 1 or more, chronic, unstable problem(s) (4) DATA: Category 1 Review of test result(s): Ordering of test(s): CTU, BMP Review of prior external note: yes, Independent historian: Category 2 Indepen (more content not included)... [facility] 06-27-2022 Miscellaneous Notes I called pt's sister to remind her to obtain his records from [place]. I also faxed a request for records in case the sister doesn't get them. Pt's sister, Sunita called wanting an emergency appt. Pt has MRSA. Just completed another course of antibiotics, still has the indwelling cath. Since last seen he's had 2 more infections and 2 more courses of antibiotics. Sunita said that you were getting ready to do a cystoscopy when you were at [facility]. I scheduled him for 07/01 but I didn't know if that was soon enough. Please advise. Thank you, Cecille Garcia documented in this encounter [facility] 06-24-2022 Note Sunita (sister) called back, informed her we will need referral along with records before we can schedule an appt. Pt gave verbal understanding. [facility] 06-23-2022 Evaluation + Plan note Future Scheduled TestsBasic Metabolic Panel 06/23/22Complete Blood Count 06/23/22 [facility] 10-29-2021 Note . MICRO - Microbiology PROCEDURE: Urine Culture [*1] SOURCE: Urine, Ricci Catheter BODY SITE: COLLECTED DATE/TIME: 10/26/2021 16:26 EDT RECEIVED DATE/TIME: 10/26/2021 20:25 EDT START DATE/TIME: 10/26/2021 20:25 EDT FREE TEXT SOURCE: FINAL REPORTS Final Report [] Verified Date/Time/Personnel: 10/29/2021 08:17 EDT >100,000 cfu/ml Providencia rettgeri 10,000 - 50,000 cfu/ml Enterococcus faecalis PRELIMINARY REPORTS Preliminary Report [] Verified Date/Time/Personnel: 10/28/2021 08:06 EDT >100,000 cfu/ml Providencia rettgeri MELANIA to follow 10,000 - 50,000 cfu/ml Enterococcus faecalis MELANIA to follow Preliminary Report [] Verified Date/Time/Personnel: 10/27/2021 14:20 EDT Culture results pending. SUSCEPTIBILITY RESULTS Providencia rettgeri Antibiotic MELANIA Dilut MELANIA Inter Ampicillin <=8 Resistant Ampicillin/ <=4/2 Susceptible Sulbactam Aztreonam <=4 Susceptible Cefazolin <=2 Resistant Cefotaxime <=2 Susceptible Cefuroxime <=4 Susceptible Ciprofloxacin <=0.25 Susceptible Ertapenem <=0.5 Susceptible Gentamicin <=2 Susceptible Imipenem <=1 Susceptible Levofloxacin <=0.5 Susceptible Meropenem <=1 Susceptible Nitrofurantoin >64 Resistant Piperacillin/ <=8 Susceptible Tazobactam Trimethoprim/ <=0.5/9.5 Susceptible Sulfa Enterococcus faecalis Antibiotic MELANIA Dilut MELANIA Inter Ampicillin <=2 Susceptible Ciprofloxacin <=1 Susceptible Gentamicin <=500 Susceptible synergy Levofloxacin <=1 Susceptible Nitrofurantoin <=32 Susceptible Vancomycin 1 Susceptible Performing Locations *1: This test was performed at: [facility], [address] [place] [address], [id number] , [facility] ([place]) 07-05-2021 Evaluation + Plan note Future Scheduled TestsPSA, Free 07/05/21 [facility] 04-23-2021 Hospital Discharg e instructions Patient Education 04/23/2021 11:13:01 Acute Kidney Injury, Adult Acute Kidney Injury, Adult Acute kidney injury is a sudden worsening of kidney function. The kidneys are organs that have several jobs. They filter the blood to remove waste products and extra fluid. They also maintain a healthy balance of minerals and hormones in the body, which helps control blood pressure and keep bones strong. With this condition, your kidneys do not do their jobs as well as they should. This condition ranges from mild to severe. Over time it may develop into long-lasting (chronic) kidney disease. Early detection and treatment may prevent acute kidney injury from developing into a chronic condition. What are the causes? Common causes of this condition include: A problem with blood flow to the kidneys. This may be caused by: ?Low blood pressure (hypotension) or shock. ?Blood loss. ?Heart and blood vessel (cardiovascular) disease. ?Severe lindsay. ?Liver disease. Direct damage to the kidneys. This may be caused by: ?Certain medicines. ?A kidney infection. ?Poisoning. ?Being around or in contact with toxic substances. ?A surgical wound. ?A hard, direct hit to the kidney area. A sudden blockage of urine flow. This may be caused by: ?Cancer. ?Kidney stones. ?An enlarged prostate in males. What are the signs or symptoms? Symptoms of this condition may not be obvious until the condition becomes severe. Symptoms of this condition can include: Tiredness (lethargy), or difficulty staying awake. Nausea or vomiting. Swelling (edema) of the face, legs, ankles, or feet. Problems with urination, such as: ?Abdominal pain, or pain along the side of your stomach (flank). ?Decreased urine production. ?Decrease in the force of urine flow. Muscle twitches and cramps, especially in the legs. Confusion or trouble concentrating. Loss of appetite. Fever. How is this diagnosed? This condition may be diagnosed with tests, including: Blood tests. Urine tests. Imaging tests. A test in which a sample of tissue is removed from the kidneys to be examined under a microscope (kidney biopsy). How is this treated? Treatment for this condition depends on the cause and how severe the condition is. In mild cases, treatment may not be needed. The kidneys may heal on their own. In more severe cases, treatment will involve: Treating the cause of the kidney injury. This may involve changing any medicines you are taking or adjusting your dosage. Fluids. You may need specialized IV fluids to balance your body's needs. Having a catheter placed to drain urine and prevent blockages. Preventing problems from occurring. This may mean avoiding certain medicines or procedures that can cause further injury to the kidneys. In some cases treatment may also require: A procedure to remove toxic wastes from the body (dialysis or continuous renal replacement therapy - CRRT). Surgery. This may be done to repair a torn kidney, or to remove the blockage from the urinary system. Follow these instructions at home: Medicines Take [id number] and prescription medicines only as told by your health care provider. Do not take any new medicines without your health care provider's approval. Many medicines can worsen your kidney damage. Do not take any vitamin and mineral supplements without your health care provider's approval. Many nutritional supplements can worsen your kidney damage. Lifestyle If your health care provider prescribed changes to your diet, follow them. You may need to decrease the amount of protein you eat. Achieve and maintain a healthy weight. If you need help with this, ask your health care provider. Start or continue an exercise plan. Try to exercise at least 30 minutes a day, 5 days a week. Do not use any tobacco products, such as cigarettes, chewing tobacco, and e-cigarettes. If you need help quitting, ask your health care provider. General instructions Keep track of your blood pressure. Report changes in your blood pressure as told by your health care provider. Stay up to date with immunizations. Ask your health care provider which immunizations you need. Keep all follow-up visits as told by your health care provider. This is important. Where to find more information [employer]: www.aakp.org National Kidney Foundation: www.kidney.org [employer]: www.akfinc.org Life Options Rehabilitation Program: ?www.lifeoptions.org ?www.kidneyschool.org Contact a health care provider if: Your symptoms get worse. You develop new symptoms. Get help right away if: You develop symptoms of worsening kidney disease, which include: ?Headaches. ?Abnormally dark or light skin. ?Easy bruising. ?Frequent hiccups. ?Chest pain. ?Shortness of breath. ?End of menstruation in women. ?Seizures. ?Confusion or altered mental status. ?Abdominal or back pain. ?Itchiness. You have a fever. Your body is producing less urine. You have pain or bleeding when you urinate. Summary Acute kidney injury is a sudden worsening of kidney function. Acute kidney injury can be caused by problems with blood flow to the kidneys, direct damage to the kidneys, and sudden blockage of urine flow. Symptoms of this condition may not be obvious until it becomes severe. Symptoms may include edema, lethargy, confusion, nausea or vomiting, and problems passing urine. This condition can usually be diagnosed with blood tests, urine tests, and imaging tests. Sometimes a kidney biopsy is done to diagnose this condition. Treatment for this condition often involves treating the underlying cause. It is treated with fluids, medicines, dialysis, diet changes, or surgery. This information is not intended to replace advice given to you by your health care provider. Make sure you discuss any questions you have with your health care provider. Document Released: 11/21/2011 Document Revised: 04/20/2018 Document Reviewed: 04/28/2017 [employer] Patient Education 2020 Exam18. Follow Up Care 04/20/2021 05:17:13 With:[facility] Address: [address] [facility] [address] [phone] Business (1) When:5 to 7 days Comments:Message left for office, please call to schedule. With:KARIN SALDIVAR Address: [address] [address]- Business (1) When: Unknown Comments:please follow up within 5-7 days [facility] 1. Bladder outlet obstructio n 2. MOSES (acute kidney injury) 3. Leukocytosis 4. Hypertension 5. Hyperlipidemia 6. Type 2 diabetes mellitus 7. Vascular dementia 8. History of traumatic subdural hematoma 9. History of cerebral infarction with left side hemiplegia 10. History of epilepsy 11. History of COPD 12. Bipolar disorder 13. Major depressive disorder 14. Tobacco abuse 15. Obesity Patient presents to hospital with abdominal pain, distention, nausea, vomiting of brown discharge x1 day. CT of abdomen demonstrated markedly distended bladder, with hydronephrosis and hydroureter right greater than left. Consistent with outlet obstruction, prostate did not appear enlarged. Stomach prominently distended, without free fluid. Patient also found to have MOSES- BUN 29, creatinine 1.81. Ricci catheter placed in ED with several liters of urine drained, improving abdomen distention. Case was discussed with Dr. Berkowitz who suggested to treat with IVF, keep Ricci in place and follow up with urology on an outpatient basis, patient did not need to be seen urgently while hospitalized. Will continue maintenance IVF, keep Ricci catheter in place. UA showed moderate blood, negative nitrites, negative leukocytes, trace bacteria. Patient afebrile. Leukocytosis likely secondary to above obstruction, will repeat CBC in a.m. In regards to the patients abdominal pain, nausea, vomiting of brown discharge with stool smelling odor, will keep patient on sips and chips. CT of abdomen did not show bowel obstruction, no free air noted. Continue symptom management with antiemetics, obtain xray of abdomen in a.m. to reevaluate for possible obstruction. Patient did have large brown bowel movement in ED. IV Protonix. History of hypertension, blood pressures stable. Continue home medications. History of hyperlipidemia, continue statin therapy. Type 2 Diabetes Mellitus, glucose 195 in emergency department. Patient on metformin BID. Patient presents with nausea, vomiting secondary to above. Reviewed CMP, CO2 22, anion gap 15. This could be secondary to dehydration, will repeat CMP to further evaluate. Add corrective sliding scale. Continue maintenance IV fluids, sips and chips. History of vascular dementia with behavioral disturbances. Patient was agitated in ED requiring IM Haldol x1. Will monitor for signs of agitation, spoke with patient's POA who would like to be called prior to administering sedating medications as she usually can calm the patient. History of traumatic subdural hematoma, cerebral infarction with left sided hemiplegia, epilepsy are stable. No recent seizure history. Will continue home medications. History of bipolar disorder, major depressive disorder. Continue home medications. History of COPD without exacerbation, continue as needed bronchodilators. History of tobacco abuse, will order nicotine patch. Obesity complicating his care DVT prophylaxis: SCDs CODE STATUS: DNRCCA DNI Plan of care discussed with patient, patient's two , including MAIN Sunita. All agreeable to plan, all questions answered. Discussed with POA recent chest xray findings from 04/04/2021 with midthoracic vertebral mild compression deformities that were suspected to be chronic, POA is requesting orthopedic consultation while patient is hospitalized. Will consult PT/OT at this time, if symptoms worsen may consider ortho consult. POA aware. Case discussed with my collaborating physician, Dr. Malick Giang This dictation was performed using voice recognition software and may include grammatical and/or spelling errors. Addendum by DARA WADDELL on April 21, 2021 11:24:01 EST Correction - patient's sisters were bedside. Sister, Sunita is POA. [facility] 11-14-2021 Hospital Discharge instructions Patient Education 04/04/2021 16:19:54 COVID-19 Prevent the Spread of COVID-19 If You Are Sick (10/08/2019)(CUSTOM) Prevent the Spread of COVID-19 If You Are Sick Accessible version: https://www.cdc.gov/coronavirus/2019-ncov/to-wku-sow-sick/oihts-blxs-flcq.html If you are sick with COVID-19 or think you might have COVID-19, follow the steps below to help protect other people in your home and community. Stay home except to get medical care. Stay home. Most people with COVID-19 have mild illness and are able to recover at home without medical care. Do not leave your home, except to get medical care. Do not visit public areas. Take care of yourself. Get rest and stay hydrated. Get medical care when needed. Call your doctor before you go to their office for care. But, if you have trouble breathing or other concerning symptoms, call 911 for immediate help. Avoid public transportation, ride-sharing, or taxis. Separate yourself from other people and pets in your home. As much as possible, stay in a specific room and away from other people and pets in your home. Also, you should use a separate bathroom, if available. If you need to be around other people or animalsin or outside of the home, wear a cloth face covering. See COVID-19 and Animals if you have questions about pets: https://www.cdc.gov/coronavirus/2019ncov/faq.html#FZGYL82qxggxth Monitor your symptoms. Common symptoms of COVID-19 include fever and cough. Trouble breathing is a more serious symptom that means you should get medical attention. Follow care instructions from your healthcare provider and local health department. Your local health authorities will give instructions on checking your symptoms and reporting information. If you develop emergency warning signs for COVID-19 get medical attention immediately. Emergency warning signs include*: Trouble breathing Persistent pain or pressure in the chest New confusion or not able to be woken Bluish lips or face *This list is not all inclusive. Please consult your medical provider for any other symptoms that are severe or concerning to you. Call 911 if you have a medical emergency. If you have a medical emergency and need to call 911, notify the emergency dispatch operator that you have or think you might have, COVID-19. If possible, put on a facemask before medical help arrives Call ahead before visiting your doctor. Call ahead. Many medical visits for routine care are being postponed or done by phone or telemedicine. If you have a medical appointment that cannot be postponed, call your doctor s office. This will help the office protect themselves and other patients. If you are sick, wear a cloth covering over your nose and mouth. You should wear a cloth face covering over your nose and mouth if you must be around other people or animals, including pets (even at home). You don t need to wear the cloth face covering if you are alone. If you can t put on a cloth face covering (because of trouble breathing for example), cover your coughs and sneezes in some other way.Try to stay at least 6 feet away from other people. This will help protect the people around you. Note: During the COVID-19 pandemic, medical grade facemasks are reserved for healthcare workers andsome first responders. You may need to make a cloth face covering using a scarf or bandana. Cover your coughs and sneezes. Cover your mouth and nose with a tissue when you cough or sneeze. Throw used tissues in a lined trash can. Immediately wash your hands with soap and water for at least 20 seconds. If soap and water are not available, clean your hands with an alcohol-based hand construction equipment technician that contains at least 60% alcohol. Clean your hands often. Wash your hands often with soap and water for at least 20 seconds. This is especially important after blowing your nose, coughing, or sneezing; going to the bathroom; and before eating or preparing food. Use hand construction equipment technician if soap and water are not available. Use an alcohol-based hand construction equipment technician with atleast 60% alcohol, covering all surfaces of your hands and rubbing them together until they feel dry. Soap and water are the best option, especially if your hands are visibly dirty. \ Avoid touching your eyes, nose, and mouth with unwashed hands. Avoid sharing personal household items. Do not share dishes, drinking glasses, cups, eating utensils, towels, or bedding with other people in your home. Wash these items thoroughly after using them with soap and water or put them in the mechanic sound technician. Clean all high-touch surfaces everyday. Clean and disinfect high-touch surfaces in your sick room and bathroom. Let someone else clean and disinfect surfaces in common areas, but not your bedroom and bathroom. If a caregiver or other person needs to clean and disinfect a sick person s bedroom or bathroom, they should do so on an as-needed basis. The caregiver/other person should wear a mask and wait as long as possible after the sick person has used the bathroom High-touch surfaces include phones, remote controls, counters, tabletops, doorknobs, bathroom fixtures, toilets, keyboards, tablets, and bedside tables. Clean and disinfect areas that may have blood, stool, or body fluids on them. Use household facilities manager and disinfectants. Clean the area or item with soap and water or another detergent if it is dirty. Then use a household disinfectant. Be sure to follow the instructions on the label to ensure safe and effective use of the product. Many products recommend keeping the surface wet for several minutes to ensure germs are killed. Many also recommend precautions such as wearing gloves and making sure you have good ventilation during use of the product. Most EPA-registered household disinfectants should be effective. How to discontinue home isolation. People with COVID-19 who have stayed home (home isolated) can stop home isolation under the following conditions: If you will not have a test to determine if you are still contagious, you can leave home after these three things have happened: You have had no fever for at least 72 hours (that is three full days of no fever without the use ofmedicine that reduces fevers) AND other symptoms have improved (for example, when your cough or shortness of breath has improved) AND at least 10 days have passed since your symptoms first appeared. If you will be tested to determine if you are still contagious, you can leave home after these three things have happened: You no longer have a fever (without the use of medicine that reduces fevers) AND other symptoms have improved (for example, when your cough or shortness of breath has improved) AND you received two negative tests in a row, 24 hours apart. Your doctor will follow CDC guidelines. In all cases, follow the guidance of your healthcare provider and local health department. The decision to stop home isolation should be made in consultation with your healthcare provider and state and local health departments. Local decisions depend on local circumstances. cdc.gov/coronavirus 04/04/2021 16:19:47 Fracture, Vertebral Compression Vertebral Compression Fracture You have a compression fracture or break in one of the bones in your spine. This kind of break usually happens in older people with thinning of the bones called osteoporosis. It may happen after a ground level fall or even with a very minor force. This can include bending forward, getting up from aseated position, coughing, or sneezing. It may also occur in young healthy people after a severe injury, such as a car accident or fall from a height. This is generally a stable break and usually does not cause any injury to the spinal cord or nerves. This injury usually takes 1 to 3 months to heal. It can be treated at home with bed rest and pain medicine. Prescription or eawl-awj-erhwgui pain medicine can be used to control the pain. Long-term use of pain medicine can increase the risk of side effects. This includes: liver or kidney damage, gastrointestinal bleeding, constipation, or narcotic dependence. If you have chronic liver or kidney disease, or ever had a stomach ulcer or gastrointestinal bleeding, talk with your healthcare provider before using these medicines. If pain medicine is needed for more than 1 to 2 weeks, talk with your healthcare provider about other treatment options. A back brace or abdominal binder may be prescribed to reduce pain by limiting motion at the site ofthe break. If you have osteoporosis, talk with your healthcare provider about using calcium and vitamin D supplements. You may need prescription medicines to prevent further bone loss. An exercise program to strengthen spine strength is a very important part of the treatment plan. It should start once the pain is under control. If you have severe or persistent pain, your healthcare provider may recommend a procedure called a vertebral augmentation. In this procedure, a needle is used to inject a bone cement into the broken vertebra. This will expand it group home counselor to its original shape. Home care You may need to stay in bed for the first few days. But, start sitting or walking as soon as possible. This will help prevent problems with prolonged bed rest such as: muscle weakness, worsening backstiffness and pain, and blood clots in the legs. When in bed, try to find a comfortable position. A firm mattress is best. Try lying flat on your back with pillows under your knees. You can also try lying on your side with your knees bent up towards your chest and a pillow between your knees. Don't sit for long periods of time. This puts more stress on the lower back than standing or walking. Apply an ice pack over the injured area for 15 to 20 minutes every 3 to 6 hours. You should do thisfor the first 24 to 48 hours. You can make an ice pack by filling a plastic bag that seals at the top with ice cubes and then wrapping it with a thin towel. You can start with ice, then switch to heat after 2 days. Apply heat (warm shower or warm bath) for 15 to 20 minutes several times a day for muscle spasms. Some people feel best alternating ice and heat treatments. Use the one method that feels the best to you. Be careful not to injure your skin with the ice or heat treatments. Ice should never be applied directly to skin. Warm rather than hot heat should be used to protect skin areas that have decreased sensation. Take pain medicine as directed. Call your healthcare provider if your pain is not well-controlled. A dose change, stronger medicine, or other treatment options may be needed. Be aware of safe lifting methods and don't lift anything over 10 pounds until all the pain is gone. Follow-up care Follow up with your healthcare provider, or as advised. If X-rays were taken, you will be told of any new findings that may affect your care. Call 911 Call 911 if you have: Weakness or numbness in one or both legs Loss of control over bowels or bladder Numbness in the groin area When to seek medical advice Call your healthcare provider right away if the pain gets worse or spreads to your arms or legs. [phone] [email or web address]. [address] [place] [address], [place] [address]. All rights reserved. This information is not intended as a substitute for professional medical care. Always follow yourhealthcare professional's instructions. 04/04/2021 16:19:42 Hyperglycemia (High Blood Sugar) Hyperglycemia (High Blood Sugar) Too much glucose (sugar) in your blood is called hyperglycemia or high blood sugar. High blood sugar can lead to a dangerous condition called ketoacidosis. In severe cases, it can lead to coma. Possible Causes of Hyperglycemia Inadequate treatment plan for diabetes Being sick Being under stress Taking certain medications, such as steroids Eating too much food, especially carbohydrates Being less active than usual Not taking enough diabetes medication Symptoms of Hyperglycemia Hyperglycemia may not cause symptoms. If you do have symptoms, they may include: Thirst Frequent need to urinate Feeling tired Nausea Itchy, dry skin Blurry vision Fast breathing Weakness Dizziness Wounds or skin infections that don t heal Unexplained weight loss if hyperglycemia lasts for more than a few days What You Should Do Check your blood sugar. Drink plenty of sugar-free, caffeine-free liquids such as water. Don t drink fruit juice. Check your blood sugar again every 4 hours. If you take insulin or diabetes medications, follow your sick-day plan for taking medication. Call your healthcare provider if you are not able to eat. Check your blood or urine for ketones as directed. Call your health care provider if your blood sugar and ketones do not return to your target range. Preventing High Blood Sugar To help keep your blood sugar from getting too high: Control stress. When you're ill, follow your sick-day plan. Follow your meal plan. Eat only the amount of food on your meal plan Follow your exercise plan. Take your insulin or diabetes medications as directed by you health care team. Also test your bloodsugar as directed. If the plan is not working for you, discuss it with your doctor. Other Things to Do Carry a medical ID card or wear a medical alert bracelet. It should say that you have diabetes. It should also say what to do in case you pass out or go into a coma. Make sure family, friends, and coworkers know the signs of high blood sugar. Tell them what to do if your blood sugar gets very high and you can t help yourself. Talk to your health care team about other things you can do to prevent high blood sugar. Special note: Drink plenty of sugar-free and caffeine-free liquids when you feel symptoms of hyperglycemia. Call your doctor if you keep having episodes of hyperglycemia. [phone] [email or web address]. [address] [place] [address], [place] [address]. All rights reserved. This information is not intended as a substitute for professional medical care. Always follow yourhealthcare professional's instructions. 04/04/2021 16:19:39 Weakness (Uncertain Cause) Weakness with Uncertain Cause Based on your exam today, the exact cause of your weakness is not certain. But your weakness does not seem to be a sign of a serious illness at this time. Keep an eye on your symptoms and get medicaladvice as instructed below. Home care Rest at home today. Don't over-exert yourself. Take any medicine as prescribed. For the next few days, drink extra fluids (unless your healthcare provider wants you to restrict fluids for other reasons). Don't skip meals. Unless otherwise directed, continue to take any prescription medicines. Contact your healthcare provider if you have any questions or concerns. Follow-up care Follow up with your healthcare provider, or as advised. When to seek medical advice Call your healthcare provider right away for any of the following: Symptoms get worse Symptoms don't start getting better within 2 days Fever of 100.4 F (38 C) or higher, or as directed by your healthcare provider Call 911 Call 911 for any of these: Chest, arm, neck, jaw, or upper back pain Trouble breathing Numbness or weakness of the face, one arm, or one leg Slurred speech, confusion, or trouble speaking, walking, or seeing Blood in vomit or stool (black or red color) Loss of consciousness Severe headache [id number] [email or web address]. [address] [place] [address]. All rights reserved. This information is not intended as a substitute for professional medical care. Always follow yourhealthcare professional's instructions. 04/04/2021 16:19:33 Confusion Confusion Confusion or delirium is a change in a person s ability to think clearly. There may be trouble recognizing familiar people and places or knowing what day it is. Memory, judgment, and decision-making may also be affected. In severe cases, the person may have limited or no response to being spoken to. Confusion usually appears over a few days and can vary throughout the day. It can last weeks to months. Confusion is usually a sign of an underlying problem. It may occur suddenly. Or it may develop gradually over time. Causes of confusion include brain injury, medicines, alcohol, withdrawal from certain medicines or illegal drugs, and infection. Heart attack and stroke may cause it. Confusion can also be a sign of dementia or a mental illness. Treatment will depend on the cause of the problem. If the issue is a medicine, stopping the medicine may help. Thiamine supplement may help with very little risk of side effects. Haloperidol is useful but people with Parkinson disease should not use it. Benzodiazepines are only used in people undergoing alcohol withdrawal. Home care Be sure someone is with the confused person at all times. He or she should not be left alone or unsupervised. Tell the healthcare provider about all medicines that the person takes. These include prescription,lubh-vbc-mvotwde, herbs, and supplements. Dehydration can increase confusion. Ask the healthcare provider how much fluid the person should bedrinking. Offer liquids and ensure that they are taken. Keep all medicines in a secure place under the caregiver s control. To prevent overdose, a confusedperson should take medicines only under the supervision of a caregiver. To help a person with confusion: oEstablish a daily routine. Change can be a source of stress for someone with confusion. Make and keep a time schedule for common tasks such as bathing, dressing, taking medicines, meals, going for walks, shopping, naps and bed time. Make sure that the person has glasses and hearing aids if needed. oDon't use physical restraints. oSpeak slowly and clearly with a gentle tone of voice. Use short simple words and sentences. Ask one question at a time. Don'tt interrupt, criticize or argue. Be calm and supportive. Use friendly facial expressions. Use pointing and touching to help communicate. If there has been loss of long-term memory, don't ask questions about past events. This would only cause frustration for the person. oUse lists, signs, family photos, clocks and calendars as memory aids. Label cabinets and drawers. Try to distract, not confront, the person. When he or she becomes frustrated or upset, redirect attention to eating or some other activity of interest. oIf this proves to be due to a permanent condition, talk to the healthcare provider or a welding tester about getting a Power of [employer] Asc[employer] Consultant for healthcare and for financial decisions. It is best to do this while the person can still sign legal documents and make his or her own decisions. Otherwise, a court order will be required. Follow-up care Follow up with the person's healthcare provider or as advised for further testing or changes in medical care. When to seek medical advice Call the healthcare provider for any of the following: Frequent falling Refusal to eat or drink Increased drowsiness Nausea or vomiting Unexplained fever over 100.4 F (38.0 C) or as directed by the healthcare provider Call 911 Call 911 or emergency services right away if any of the following occur: Violent behavior or behavior too hard to manage at home New hallucinations or delusions complains of severe headache or numbness or weakness of the face, arm, or leg Slurred speech or trouble speaking, walking, or seeing Fainting spell, dizziness, or seizure [id number] [email or web address]. [address] [place] [address], [place] [address]. All rights reserved. This information is not intended as a substitute for professional medical care. Always follow yourhealthcare professional's instructions. 04/04/2021 16:19:31 Hypertension, Established Established High Blood Pressure High blood pressure (hypertension) is a chronic disease. Often, healthcare providers don t know what causes it. But it can be caused by certain health conditions and medicines. If you have high blood pressure, you may not have any symptoms. If you do have symptoms, they may include headache, dizziness, changes in your vision, chest pain, and shortness of breath. But even without symptoms, high blood pressure that s not treated raises your risk for heart attack, heart failure, and stroke. High blood pressure is a serious health risk and shouldn t be ignored. Blood pressure measurements are given as 2 numbers. Systolic blood pressure is the upper number. This is the pressure when the heart contracts. Diastolic blood pressure is the lower number. This is the pressure when the heart relaxes between beats. You will see your blood pressure readings written together. For example, a person with a systolic pressure of 118 and a diastolic pressure of 78 will have 118/78 written in the medical record. Blood pressure is categorized as normal, elevated, or stage 1 or stage 2 high blood pressure: Normal blood pressure is systolic of less than 120 and diastolic of less than 80 (120/80) Elevated blood pressure is systolic of 120 to 129 and diastolic less than 80 Stage 1 high blood pressure is systolic is 130 to 139 or diastolic between 80 to 89 Stage 2 high blood pressure is when systolic is 140 or higher or the diastolic is 90 or higher Home care If you have high blood pressure, follow these home care guidelines to help lower your blood pressure. If you are taking medicines for high blood pressure, these methods may reduce or end your need for medicines in the future. Start a weight-loss program if you are overweight. Cut back on how much salt you get in your diet. Here s how to do this: oDon t eat foods that have a lot of salt. These include olives, pickles, smoked meats, and salted potato chips. oDon t add salt to your food at the table. oUse only small amounts of salt when cooking. Start an exercise program. Talk with your healthcare provider about the type of exercise program that would be best for you. It doesn't have to be hard. Even brisk walking for 20 minutes 3 times a week is a good form of exercise. Don t take medicines that stimulate the heart. This includes many nzos-fqj-wkvrepm cold and sinus decongestant pills and sprays, as well as diet pills. Check the warnings about high blood pressure onthe label. Before buying any swyx-cna-kmhxfkj medicines or supplements, always ask the pharmacist about the product's potential interaction with your high blood pressure and your high blood pressure medicines. Stimulants such as amphetamine or cocaine could be deadly for someone with high blood pressure. Never take these. Limit how much caffeine you get in your diet. Switch to caffeine-free products. Stop smoking. If you are a long-time smoker, this can be hard. Talk to your healthcare provider about medicines and nicotine replacement options to help you. Also, enroll in a stop-smoking program tomake it more likely that you will quit for good. Learn how to handle stress. This is an important part of any program to lower blood pressure. Learnabout relaxation methods like meditation, yoga, or biofeedback. If your provider prescribed medicines, take them exactly as directed. Missing doses may cause your blood pressure get out of control. If you miss a dose or doses, check with your healthcare provider or pharmacist about what to do. Consider buying an automatic blood pressure machine to check your blood pressure at home. Ask your provider for a recommendation. You can get one of these at most pharmacies. The [employer] recommends the following guidelines for home blood pressure monitoring: Don't smoke or drink coffee for 30 minutes before taking your blood pressure. Go to the bathroom before the test. Relax for 5 minutes before taking the measurement. Sit with your back supported (don't sit on a couch or soft chair); keep your feet on the floor uncrossed. Place your arm on a solid flat surface (like a table) with the upper part of the arm at heartlevel. Place the middle of the cuff directly above the bend of the elbow. Check the monitor's instruction manual for an illustration. Take multiple readings. When you measure, take 2 to 3 readings one minute apart and record all of the results. Take your blood pressure at the same time every day, or as your healthcare provider recommends. Record the date, time, and blood pressure reading. Take the record with you to your next medical appointment. If your blood pressure monitor has a built-in memory, simply take the monitor with you to your next appointment. Call your provider if you have several high readings. Don't be frightened by a single high blood pressure reading, but if you get several high readings, check in with your healthcare provider. Note: When blood pressure reaches a systolic (top number) of 180 or higher OR diastolic (bottom number) of 110 or higher, seek emergency medical treatment. Follow-up care You will need to see your healthcare provider regularly. This is to check your blood pressure and to make changes to your medicines. Make a follow-up appointment as directed. Bring the record of yourhome blood pressure readings to the appointment. When to seek medical advice Call your healthcare provider right away if any of these occur: Blood pressure reaches a systolic (upper number) of 180 or higher OR a diastolic (bottom number) of110 or higher Chest pain or shortness of breath Severe headache Throbbing or rushing sound in the ears Nosebleed Sudden severe pain in your belly (abdomen) Extreme drowsiness, confusion, or fainting Dizziness or spinning sensation (vertigo) Weakness of an arm or leg or one side of the face You have problems speaking or seeing [id number] [email or web address]. [address] [place] [address]. All rights reserved. This information is not intended as a substitute for professional medical care. Always follow yourhealthcare professional's instructions. Follow Up Care 04/04/2021 12:03:21 With:KARIN SALDIVAR Address: [address] [address]- Business (1) When:2-4 days Comments:Schedule appointment as soon as possibleReturn to ED if symptoms worsenDiscuss antibody therapy in [facility] Evaluation + Plan note No data available for this section [facility] Evaluation + Plan note Future Appointments Appointment Date:07/15/2021 01:20:00 PM Scheduled Provider:STEVEN BAXTER MD Location:UROLOGY Appointment Type:URO OV 20 min Future Scheduled Tests Laboratory* PSA, Free 07/05/21 [facility] Evaluation + Plan note Future Appointments Appointment Date:01/26/2022 01:00:00 PM Scheduled Provider:RADHA CARR APRN-INVENTORY MANAGER Location:UROLOGY Appointment Type:URO OV 20 min Future Scheduled Tests Laboratory* PSA, Free 07/05/21 [facility] Evaluation + Plan note Future Appointments Appointment Date:04/20/2022 10:40:00 AM Scheduled Provider:RADHA CARR APRN-INVENTORY MANAGER Location:UROLOGY Appointment Type:URO OV Future Scheduled Tests Laboratory* PSA, [facility] 07/05/21 [facility] Evaluation note* Diagnosis Hydronephrosis, unspecified hydronephrosis type- Primary [facility] Diagnosis Hydronephrosis, unspecified hydronephrosis type [facility]* Diagnosis Urinary retention- Primary Retention of urine, unspecified Urethral erosion Other specified disorders of urethra documented in this [facility]* Diagnosis Neurogenic bladder- Primary Neurogenic bladder, NOS Urinary retention Retention of urine, unspecified documented [facility]* Diagnosis Neurogenic bladder- Primary Neurogenic bladder, NOS documented in [facility]* Diagnosis Hydronephrosis, unspecified hydronephrosis type [facility] No data available for this section [facility] Progress note No data available for this section [facility] Reason for referral (narrative)* Diagnostic Procedure Only (Routine) - Authorized Specialty Diagnoses / Procedures Referred By Contgabi t Referred To Contact MOLECULAR & FUNCTIONAL IMAGING Diagnoses Hydronephrosis, unspecified hydronephrosis type Procedures NM RENAL FLOW/FXN W PHARM KIDNEY IMG MORPHOLOGY VASCULAR FLOW 1 W/RX Steven Baxter MD [address] [place] [address] Molecular & Functional Imaging [address] [place] [address] Referral ID Status Reason Start Date Expiration Date Visits Requested Visits Authorized [id number] Authorized Auto-Generat ed Referral 07/26/2022 08/18/2023 1 1 [facility] for referral (narrative)* Diagnostic Procedure Only (Routine) - Pending Review Specialty Diagnoses / Procedures Referred By Contac t Referred To Contact US IMAGING Diagnoses Neurogenic bladder Urinary retention Procedures US KIDNEY/BLADDER US RETROPERITONEAL REAL TIME W/IMAGE COMPLETE Steven Baxter MD [address] [place] [address] Us Imaging Referral ID Status Reason Start Date Expiration Date Visits Requested Visits Authorized [id number] Pending Review Auto-Generat ed Referral 06/25/2023 10/22/2023 1 1 [facility] for referral (narrative)* Diagnostic Procedure Only (Routine) - Pending Review Specialty Diagnoses / Procedures Referred By Contac t Referred To Contact US IMAGING Diagnoses Neurogenic bladder Procedures US KIDNEY/BLADDER US RETROPERITONEAL REAL TIME W/IMAGE COMPLETE Annalee Quinones PA-C [address] [place] [address] Us Imaging Referral ID Status Reason Start Date Expiration Date Visits Requested Visits Authorized [id number] Pending Review Auto-Generat ed Referral 06/22/2023 11/18/2023 1 1 [facility] for referral (narrative)* Diagnostic Procedure Only (Routine) - Closed Specialty Diagnoses / Procedures Referred By Contac t Referred To Contact MOLECULAR & FUNCTIONAL IMAGING Diagnoses Hydronephrosis, unspecified hydronephrosis type Procedures NM RENAL FLOW/FXN W PHARM KIDNEY IMG MORPHOLOGY VASCULAR FLOW 1 W/RX Steven Baxter MD [address] [place] [address] Molecular & Functional Imaging [address] [place] [address] Referral ID Status Reason Start Date Expiration Date V isits Requested Visits Authorized [id number] Closed Auto-Generate d Referral 12/09/2022 01/08/2024 1 1 [facility] for visit Narrative* Diagnostic Procedure Only (Routine) - Closed Specialty Diagnoses / Procedures Referred By Contac t Referred To Contact MOLECULAR & FUNCTIONAL IMAGING Diagnoses Hydronephrosis, unspecified hydronephrosis type Procedures NM RENAL FLOW/FXN W PHARM KIDNEY IMG MORPHOLOGY VASCULAR FLOW 1 W/RX Steven Baxter MD [address] [place] [address] Molecular & Functional Imaging [address] [place] [address] Referral ID Status Reason Start Date Expiration Date V isits Requested Visits Authorized [id number] Closed Auto-Generate d Referral 07/26/2022 08/18/2023 1 1 [facility] for visit Narrative* Diagnostic Procedure Only (Routine) - Closed Specialty Diagnoses / Procedures Referred By Contac t Referred To Contact MOLECULAR & FUNCTIONAL IMAGING Diagnoses Hydronephrosis, unspecified hydronephrosis type Procedures NM RENAL FLOW/FXN W PHARM KIDNEY IMG MORPHOLOGY VASCULAR FLOW 1 W/RX Steven Baxter MD [address] [place] [address] Molecular & Functional Imaging [address] [place] [address] Referral ID Status Reason Start Date Expiration Date V isits Requested Visits Authorized [id number] Closed Auto-Generate d Referral 12/09/2022 01/08/2024 1 1 [facility] Discharge Instructions * Instructions* Gaby Escamilla, DO - 04/26/2019 Post-Op Care for your Ear Tubes Dr. Gaby Escamilla 1. Ear tubes help protect from ear infections, middle-ear fluid (liquid behind the eardrum), and the hearing problems that go along with them. Most tubes last about 6 to 18 months, allowing time for patient to outgrow their ear problems. Most tubes fall out by themselves. The chance of a tube falling in, instead of out, is very rare. Tubes that do not come out after 2 or more years may need to be removed by your doctor. 2. Complications of ear tubes are usually minor. A white gaby or patch may develop on the eardrum which is called sclerosis. It does not affect hearing or future chance of ear infections. A small depression or pocket in the eardrum at the tube site may develop after the tube falls out. Again, this does not affect hearing and rarely requires treatment. About 1-2 out of 100 people may develop a small hole (perforation) of the eardrum after the tube falls out. The hole will often close on its own over time. But if it does not, it can be patched in the operating room. It is important to have regular return office appointments to assess the ear tubes and to assure healing of the eardrum. 3. Ear Tubes and Water Protection Some patients with ear tubes wear ear plugs when swimming. The ear plugs keep water out of the ear canal and out of the ear tube. However, water does not usually go through the tube during swimming. As a result, ear plugs are not necessary. Although most patients with tubes do note need ear plugs, they may be necessary in the following situations: A. Pain or discomfort when water enters the ear canal. B. Discharge or drainage is observed coming out of the ear canal. C. Frequent or prolonged episodes of ear discharge. There are times when use of ear plugs are advised. This includes: A. Swimming more that 6 feet under water. Ear plugs should also be worn if there is impact while swimming, such as jumping or diving into a pool. B. Swimming in lakes or non-chlorinated pools C. Dunking head in the bathtub (soapy water has a lower surface tension than plain water). A variety of soft, fitted ear plugs are available , if needed, as are special neoprene headbands tocover the ears. Never use Playdoh or Silly Putty as an earplug, because it can become trapped in the ear canal and require surgical removal. Once the tube becomes blocked or comes out, ear plugs are not needed if there is no hole in the eardrum. 4. Ear Tube Follow-Up and Aftercare Routine follow-up with your doctor every three (3) months is important to make sure that the tubes are in place and to check for any possible problems. All patients need to follow-up no matter how well they are doing. Patients often feel well even when there is a problem with the tube. Once the tubes fall out, you should return for a final re-check so your doctor can check the ears and be sure that fluid has not built up again. If you have any further questions or concerns please contact our office at: [phone] IF YOU HAVE AN EMERGENCY, AND ARE UNABLE TO REACH THE DOCTOR AT THE ABOVE NUMBER, CALL OR GO TO [facility] EMERGENCY ROOM [phone] documented in this encounter History of Present Illness * Donya Kong RN - 04/26/2019 2:54 PM EST Report called to A[facility] at [facility]- folder with discharge instructions & prescription given to pt sister * Donya Kong RN - 04/26/2019 2:54 PM EST Cotton dry & intact jennifer ears- no drainage noted * Donya Kong RN - 04/26/2019 2:12 PM EST Cotton dry & intact jennifer ears- no drainage noted * Rosemarie Coffey RN - 04/26/2019 1:00 PM EST SPOKE TO Anupama GRANDE AT [facility] REGARDING PREOP INSTRUCTIONS WITH MEDICATIONS TO HOLD. WILL LET SISTER OF PATIENT AWARE AND SHE WILL BE BRINGING PT. DAY OF SURGERY. 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 Advance Directives and Living Will Power of [employer] [facility] Consultant Latest Code Status on File Code Status Date Activated Date Inactivated Comments Full Code 04/26/2019 11:56 AM Summary Purpose Family History No Family History Records FoundNo Family History Records FoundNo Family History Records FoundNo Family History Records FoundNo Family History Records FoundNo Family History Records FoundNo Family History Records FoundNo Family History Records Found Additional Source Comments (unrecognized sect ion and content) No Status Records FoundNo Status Records FoundNo Status Records FoundNo Status Records FoundNo Status Records FoundNo Status Records FoundNo Status Records FoundNo Status Records Found INFORMATION SOURCE (unrecogn ized section and content) DATE CREATED AUTHOR AUTHOR'S ORGANIZ ATION 06/20/2021 [facility] DATE CREATED AUTHOR AUTHOR'S ORGANIZ ATION 06/30/2022 [facility] DATE CREATED AUTHOR AUTHOR'S ORGANIZ ATION 08/06/2022 [facility] DATE CREATED AUTHOR AUTHOR'S ORGANIZ ATION 09/05/2022 [facility] DATE CREATED AUTHOR AUTHOR'S ORGANIZ ATION 11/19/2022 [facility] DATE CREATED AUTHOR AUTHOR'S ORGANIZ ATION 12/09/2022 [facility] DATE CREATED AUTHOR AUTHOR'S ORGANIZ ATION 12/21/2022 [facility] Care Team (unrecognized sect ion and content) Water Analyst Relationship Specialty Start Date End Date Karin Saldivar [address] [place] [address] PCP - General Family Medicine 06/28/22 Water Analyst Relationship Specialty Start Date End Date Karin Saldivar [address] [facility] [address] [address] PCP - General Family Medicine 06/28/22 Water Analyst Relationship Specialty Start Date End Date Karin Saldivar [address] [facility] [address] [address] PCP - General Family Medicine 06/28/22 Water Analyst Relationship Specialty Start Date End Date Karin Saldivar [address] [place] [address] PCP - General Family Medicine 06/28/22 Water Analyst Relationship Specialty Start Date End Date Karin Saldivar [address] [place] [address] PCP - General Family Medicine 06/28/22 Water Analyst Relationship Specialty Start Date End Date Karin Saldivar [address] [place] [address] PCP - General Family Medicine 06/28/22 Water Analyst Relationship Specialty Start Date End Date Karin Saldivar [address] [place] [address] PCP - General Family Medicine 06/28/22 Water Analyst Relationship Specialty Start Date End Date Karin Saldivar [address] [place] [address] PCP - General Family Medicine 06/28/22 Care Team (unrecognized sect ion and content) Care Team Personnel Name: KARIN SALDIVAR MD Member Role: Primary Care Physician Address: Address: [address] Name: STEVEN BAXTER MD Position: P4 Physician - Urologist Member Role: Urologist Address: Address: [address] [place] [address]- Care Team Related Persons Name: SUNITA EDWARDS Name: JENNI EDWARDS Care Team Personnel Name: KARIN SALDIVAR MD Member Role: Primary Care Physician Address: Address: [address] Name: STEVEN BAXTER MD Position: P4 Physician - Urologist Member Role: Urologist Address: Address: [address] [place] [address]- Care Team Related Persons Name: SUNITA EDWARDS Name: JENNI EDWARDS Source Comments (unrecognize d section and content) In the event this informatio n is protected by the Federal Confidentiality of Alcohol and Drug Abuse Patient Records regulations: The Federal rules restrict any use of the information to criminally investigate or prosecute any alcohol or drug abuse patient.[facility] the event this information is protected by the Federal Confidentiality of Alcohol and Drug Abuse Patient Records regulations: The Federal rules restrict any use of the information to criminally investigate or prosecute any alcohol or drug abuse patient.[facility] the event this information is protected by the Federal Confidentiality of Alcohol and Drug Abuse Patient Records regulations: The Federal rules restrict any use of the information to criminally investigate or prosecute any alcohol or drug abuse patient.[facility] the event this information is protected by the Federal Confidentiality of Alcohol and Drug Abuse Patient Records regulations: The Federal rules restrict any use of the information to criminally investigate or prosecute any alcohol or drug abuse patient.[facility] the event this information is protected by the Federal Confidentiality of Alcohol and Drug Abuse Patient Records regulations: The Federal rules restrict any use of the information to criminally investigate or prosecute any alcohol or drug abuse patient.[facility] Hospital[facility] the event this information is protected by the Federal Confidentiality of Alcohol and Drug Abuse Patient Records regulations: The Federal rules restrict any use of the information to criminally investigate or prosecute any alcohol or drug abuse patient.[facility] Hospital[facility] the event this information is protected by the Federal Confidentiality of Alcohol and Drug Abuse Patient Records regulations: The Federal rules restrict any use of the information to criminally investigate or prosecute any alcohol or drug abuse patient.[facility] Hospital[facility] the event this information is protected by the Federal Confidentiality of Alcohol and Drug Abuse Patient Records regulations: The Federal rules restrict any use of the information to criminally investigate or prosecute any alcohol or drug abuse patient.[facility] Hospital[facility] the event this information is protected by the Federal Confidentiality of Alcohol and Drug Abuse Patient Records regulations: The Federal rules restrict any use of the information to criminally investigate or prosecute any alcohol or drug abuse patient.[facility] Hospital[facility] the event this information is protected by the Federal Confidentiality of Alcohol and Drug Abuse Patient Records regulations: The Federal rules restrict any use of the information to criminally investigate or prosecute any alcohol or drug abuse patient.[facility] Reason for Visit (unrecogniz ed section and content) Reason Comments Results Reason Comments Patient Question Reason Comments Imaging Reason Comments Orders Appointment Reason Comments Orders Reason Comments Patient Question Reason Comments Urinary Retention FOR RECORDS PERTAINING TO PATIENTS WHO ARE OR HAVE BEEN ENROLLED IN A CHEMICAL DEPENDENCY/SUBSTANCEABUSE PROGRAM, SOME INFORMATION MAY BE OMITTED. This clinical summary was aggregated from multiple sources. Caution should be exercised in using it in the provision of clinical care. This summary normalizes information from multiple sources, and as a consequence, information in this document may materially change the coding, format and clinical context of patient data. In addition, data may be omitted in some cases. CLINICAL DECISIONS SHOULD BE BASED ON THE PRIMARY CLINICAL RECORDS. [facility] [employer] [facility]. provides no warranty or guarantee of the accuracy or completeness of information in this document.
--- NOTE | 2023-01-11 15:20 | ED.RN ---
NURSE TO NURSE UPDATE GIVEN TO SURGICAL SCRUB TECHNOLOGIST AT [facility]
--- OUTSIDE RECORDS SUMMARY | 2023-01-11 15:29 | XMS RPT_ITS | CCD ---
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 https://www.cdc.gov/coronavirus/2019ncov/faq.html#IUABD25figzncf Monitor your symptoms. Common symptoms of COVID-19 [...] and need to call 911, notify the tipple operator that you have or think you [...] clean your hands with an alcohol-based hand internal grinder that contains at least 60% alcohol. Clean your hands often. Wash your hands often with soap and water for at least 20 seconds. This is especially important after blowing your nose, coughing, or sneezing; going to the bathroom; and before eating or preparing food. Use hand internal grinder if soap and water are not available. Use an alcohol-based hand internal grinder with atleast 60% alcohol, covering all surfaces [...] and water or put them in the food and nutrition supervisor. Clean all high-touch surfaces everyday. Clean and [...] or body fluids on them. Use household customs examiner and disinfectants. Clean the area or item [...] bed rest and pain medicine. Prescription or ixfb-qpc-nfstnvt pain medicine can be used to control [...] the broken vertebra. 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 Home care You [...] or spreads to your arms or legs. 9925-5293 [employer]. [address] [place] [address], [place] [address]. All rights reserved. This information is not [...] if you keep having episodes of hyperglycemia. 0854-9634 [employer]. [address] [place] [address], [place] [address]. All rights reserved. This information is not [...] red color) Loss of consciousness Severe headache 6823-3731 [employer]. [address] [place] [address]. All rights reserved. This information is not [...] medicines that the person takes. These include prescription,wdde-him-jicmfhi, herbs, and supplements. Dehydration can increase confusion. [...] talk to the healthcare provider or a senior scientist about getting a Power of Marketing Operations Coordinator for healthcare and for financial decisions. It [...] or seeing Fainting spell, dizziness, or seizure 3665-0928 [employer]. [address] [place] [address], [place] [address]. All rights reserved. This information is not [...] that stimulate the heart. This includes many zruk-lfz-cfvnsig cold and sinus decongestant pills and sprays, as well as diet pills. Check the warnings about high blood pressure onthe label. Before buying any epro-ehe-rokdhia medicines or supplements, always ask the pharmacist [...] one of these at most pharmacies. The [employer] Heart Association recommends the following guidelines for [...] face You have problems speaking or seeing 8760-1987 [employer]. [address] [place] [address]. All rights reserved. This information is not intended as a substitute for professional medical care. Always follow yourhealthcare professional's instructions. Follow Up Care 04/04/2021 12:03:21 With:KARIN SALDIVAR Address: [address] [address]- Business (1) When:2-4 days Comments:Schedule appointment as soon as possibleReturn to ED if symptoms worsenDiscuss antibody therapy in [facility] Evaluation + Plan note No data available for this section [facility] Evaluation + Plan note Future Appointments Appointment Date:07/15/2021 01:20:00 PM Scheduled Provider:STEVEN BAXTER MD Location:UROLOGY Appointment Type:URO OV 20 min Future Scheduled Tests Laboratory* PSA, Free 07/05/21 Evaluation + Plan note Future Appointments Appointment Date:01/26/2022 01:00:00 PM Scheduled Provider:RADHA CARR APRN-SERVICE TECH Location:UROLOGY Appointment Type:URO OV 20 min Future Scheduled Tests Laboratory* PSA, Free 07/05/21 [facility] Evaluation + Plan note Future Appointments Appointment Date:04/20/2022 10:40:00 AM Scheduled Provider:RADHA CARR APRN-SERVICE TECH Location:UROLOGY Appointment Type:URO OV Future Scheduled Tests Laboratory* PSA, [facility] 07/05/21 Evaluation note* Diagnosis Hydronephrosis, unspecified hydronephrosis type- Primary [facility] Diagnosis Hydronephrosis, unspecified hydronephrosis type [facility] Diagnosis Urinary retention- Primary Retention of urine, unspecified Urethral erosion Other specified disorders of urethra [facility] Diagnosis Neurogenic bladder- Primary Neurogenic bladder, NOS Urinary retention Retention of urine, unspecified [facility] Diagnosis Neurogenic bladder- Primary Neurogenic bladder, NOS [facility]* Diagnosis Hydronephrosis, unspecified hydronephrosis type [facility] No data available for this section [facility] Progress note No data available for this section [facility] Reason for referral (narrative)* Diagnostic Procedure Only (Routine) - Authorized Specialty Diagnoses / Procedures Referred By Contgabi t Referred To Contact MOLECULAR & FUNCTIONAL IMAGING Diagnoses Hydronephrosis, unspecified hydronephrosis type Procedures NM RENAL FLOW/FXN W PHARM KIDNEY IMG MORPHOLOGY VASCULAR FLOW 1 W/RX Steven Baxter MD [address] [place] [address] Molecular & Functional Imaging [address] [place] [address] Referral ID Status Reason Start Date Expiration Date Visits Requested Visits Authorized [id number] Authorized Auto-Generat ed Referral 07/26/2022 08/18/2023 1 1 [facility] for [facility] (narrative)* Diagnostic Procedure Only (Routine) - Pending Review Specialty Diagnoses / Procedures Referred By Contac t Referred To Contact US IMAGING Diagnoses Neurogenic bladder Urinary retention Procedures US KIDNEY/BLADDER US RETROPERITONEAL REAL TIME W/IMAGE COMPLETE Steven Baxter MD [address] [place] [address] Us Imaging Referral ID Status Reason Start Date Expiration Date Visits Requested Visits Authorized [id number] Pending Review Auto-Generat ed Referral 06/25/2023 10/22/2023 1 1 [facility] for referral (narrative)* Diagnostic Procedure Only (Routine) - Pending Review Specialty Diagnoses / Procedures Referred By Contac t Referred To Contact US IMAGING Diagnoses Neurogenic bladder Procedures US KIDNEY/BLADDER US RETROPERITONEAL REAL TIME W/IMAGE COMPLETE Annalee Quinones PA-C [address] [place] [address] Us Imaging Referral ID Status Reason Start Date Expiration Date Visits Requested Visits Authorized [id number] Pending Review Auto-Generat ed Referral 06/22/2023 11/18/2023 1 1 [facility] for referral (narrative)* Diagnostic Procedure Only (Routine) - Closed Specialty Diagnoses / Procedures Referred By Contac t Referred To Contact MOLECULAR & FUNCTIONAL IMAGING Diagnoses Hydronephrosis, unspecified hydronephrosis type Procedures NM RENAL FLOW/FXN W PHARM KIDNEY IMG MORPHOLOGY VASCULAR FLOW 1 W/RX Steven Baxter MD [address] [place] [address] Molecular & Functional Imaging [address] [place] [address] Referral ID Status Reason Start Date Expiration Date V isits Requested Visits Authorized [id number] Closed Auto-Generate d Referral 12/09/2022 01/08/2024 1 1 [facility] for visit Narrative* Diagnostic Procedure Only (Routine) - Closed Specialty Diagnoses / Procedures Referred By Contac t Referred To Contact MOLECULAR & FUNCTIONAL IMAGING Diagnoses Hydronephrosis, unspecified hydronephrosis type Procedures NM RENAL FLOW/FXN W PHARM KIDNEY IMG MORPHOLOGY VASCULAR FLOW 1 W/RX Steven Baxter MD [address] [place] [address] Molecular & Functional Imaging [address] [place] [address] Referral ID Status Reason Start Date Expiration Date V isits Requested Visits Authorized [id number] Closed Auto-Generate d Referral 07/26/2022 08/18/2023 1 1 [facility] for visit Narrative* Diagnostic Procedure Only (Routine) - Closed Specialty Diagnoses / Procedures Referred By Contac t Referred To Contact MOLECULAR & FUNCTIONAL IMAGING Diagnoses Hydronephrosis, unspecified hydronephrosis type Procedures NM RENAL FLOW/FXN W PHARM KIDNEY IMG MORPHOLOGY VASCULAR FLOW 1 W/RX Steven Baxter MD [address] [place] [address] Molecular & Functional Imaging [address] [place] [address] Referral ID Status Reason Start Date Expiration Date V isits Requested Visits Authorized [id number] Closed Auto-Generate d Referral 12/09/2022 01/08/2024 1 1 [facility] Discharge Instructions * Instructions* Gaby Escamilla, DO [...] or concerns please contact our office at: [phone] IF YOU HAVE AN EMERGENCY, AND ARE UNABLE TO REACH THE DOCTOR AT THE ABOVE NUMBER, CALL OR GO TO [facility] EMERGENCY ROOM [phone] documented in this encounter History of Present Illness * Donya Kong RN - 04/26/2019 2:54 PM EST Report called to [place] at [facility]- folder with discharge instructions & prescription given to pt sister * Donya Kong RN - 04/26/2019 2:54 PM EST Cotton dry & intact jennifer ears- no drainage noted * Donya Kong RN - 04/26/2019 2:12 PM EST Cotton dry & intact jennifer ears- no drainage noted * Rosemarie Coffey RN - 04/26/2019 1:00 PM EST SPOKE TO Anupama GRANDE AT [facility] REGARDING PREOP INSTRUCTIONS WITH MEDICATIONS TO HOLD. WILL LET SISTER OF PATIENT AWARE AND SHE WILL BE BRINGING PT. DAY OF SURGERY. documented in this encounter Advance Directives No Advanced Directives Records FoundDocuments on File Type Date Recorded Patient Crtt Expl anation Advance Directives and Living Will Power of Marketing Operations Coordinator Latest Code Status on File Code Status [...] CREATED AUTHOR AUTHOR'S ORGANIZ ATION [facility]/20/2021 [facility] DATE CREATED AUTHOR AUTHOR'S ORGANIZ ATION 06/30/2022 [facility] DATE CREATED AUTHOR AUTHOR'S ORGANIZ ATION 08/06/[address] [facility] DATE CREATED AUTHOR AUTHOR'S ORGANIZ ATION 09/05/2022 [facility] ([place]) DATE CREATED AUTHOR AUTHOR'S ORGANIZ ATION 11/19/2022 [facility] DATE CREATED AUTHOR AUTHOR'S ORGANIZ ATION 12/09/[address] [facility] DATE CREATED AUTHOR AUTHOR'S ORGANIZ ATION 12/21/2022 [facility] Care Team (unrecognized sect ion and content) Physical Geographer Relationship Specialty Start Date End Date Karin Saldivar [address] [place] [address] PCP - General Family Medicine 06/28/22 Physical Geographer Relationship Specialty Start Date End Date Karin Saldivar [address] [address] [address] [address] PCP - General Family Medicine 06/28/22 Physical Geographer Relationship Specialty Start Date End Date Karin Saldivar [address] [facility] [address] [address] PCP - General Family Medicine 06/28/22 Physical Geographer Relationship Specialty Start Date End Date Karin Saldivar [address] [place] [address] PCP - General Family Medicine 06/28/22 Physical Geographer Relationship Specialty Start Date End Date Karin Saldivar [address] [place] [address] PCP - General Family Medicine 06/28/22 Physical Geographer Relationship Specialty Start Date End Date Karin Saldivar [address] [place] [address] PCP - General Family Medicine 06/28/22 Physical Geographer Relationship Specialty Start Date End Date Karin Saldivar [address] [place] [address] PCP - General Family Medicine 06/28/22 Physical Geographer Relationship Specialty Start Date End Date Karin Saldivar [address] [place] [address] PCP - General Family Medicine 06/28/22 Care Team (unrecognized sect ion and content) Care Team Personnel Name: KARIN SALDIVAR MD Member Role: Primary Care Physician Address: Address: [address] Name: STEVEN BAXTER MD Position: P4 Physician - Urologist Member Role: Urologist Address: Address: [address] [place] [address]- Care Team Related Persons Name: SUNITA EDWARDS Name: JENNI EDWARDS Care Team Personnel Name: KARIN SALDIVAR MD Member Role: Primary Care Physician Address: Address: [address] Name: STEVEN BAXTER MD Position: P4 Physician - Urologist Member Role: Urologist Address: Address: [address] [place] [address]- Care Team Related Persons Name: SUNITA EDWARDS Name: JENNI EDWARDS Source Comments (unrecognize d section and content) In the event this informatio n is protected by the Federal Confidentiality of Alcohol and Drug Abuse Patient Records regulations: The Federal rules restrict any use of the information to criminally investigate or prosecute any alcohol or drug abuse patient.[facility] the event this information is protected by the Federal Confidentiality of Alcohol and Drug Abuse Patient Records regulations: The Federal rules restrict any use of the information to criminally investigate or prosecute any alcohol or drug abuse patient.[facility] the event this information is protected by the Federal Confidentiality of Alcohol and Drug Abuse Patient Records regulations: The Federal rules restrict any use of the information to criminally investigate or prosecute any alcohol or drug abuse patient.[facility] the event this information is protected by the Federal Confidentiality of Alcohol and Drug Abuse Patient Records regulations: The Federal rules restrict any use of the information to criminally investigate or prosecute any alcohol or drug abuse patient.[facility] the event this information is protected by the Federal Confidentiality of Alcohol and Drug Abuse Patient Records regulations: The Federal rules restrict any use of the information to criminally investigate or prosecute any alcohol or drug abuse patient.[facility] the event this information is protected by the Federal Confidentiality of Alcohol and Drug Abuse Patient Records regulations: The Federal rules restrict any use of the information to criminally investigate or prosecute any alcohol or drug abuse patient.[facility] the event this information is protected by the Federal Confidentiality of Alcohol and Drug Abuse Patient Records regulations: The Federal rules restrict any use of the information to criminally investigate or prosecute any alcohol or drug abuse patient.[facility] the event this information is protected by the Federal Confidentiality of Alcohol and Drug Abuse Patient Records regulations: The Federal rules restrict any use of the information to criminally investigate or prosecute any alcohol or drug abuse patient.[facility] the event this information is protected by the Federal Confidentiality of Alcohol and Drug Abuse Patient Records regulations: The Federal rules restrict any use of the information to criminally investigate or prosecute any alcohol or drug abuse patient.[facility] the event this information is protected by the Federal Confidentiality of Alcohol and Drug Abuse Patient Records regulations: The Federal rules restrict any use of the information to criminally investigate or prosecute any alcohol or drug abuse patient.[facility] Reason for Visit (unrecogniz ed section and [...] BE BASED ON THE PRIMARY CLINICAL RECORDS. [facility] [employer] [facility]. provides no warranty or guarantee of the accuracy or completeness of information in this document.
[2023-01-11] MEDS: hydrOXYzine 50 MG/ML Vial IM (15:36)
[2023-01-11] MEDS: Oxymetazoline 0.05% 1 SPRAY SPRAY.BTL 2 SPRAY NASAL (15:39)
--- NOTE | 2023-01-11 16:20 | RAD_ITS ---
STUDY: X-RAY - ABDOMEN/PELVIS REASON FOR EXAM: Male, 62 years old. gastric outlet obsctruction -- KUB with both diaphragms for NG/OG Verification TECHNIQUE: Frontal view COMPARISON: None. FINDINGS: Normal visualized lung bases. There is an unremarkable bowel gas pattern. Proximal colonic fecal retention. There is no demonstrated free abdominal air. Moderately distended stomach with a nasogastric tube in place. Normal soft tissue structures. Normal visualized osseous structures. RAD/Abdomen Single View (Portable) IMPRESSION: Moderately distended stomach with a nasogastric tube in place. Electronically Signed: Angelito Garcia DO at 16:50 EDT ,
--- NOTE | 2023-01-11 16:23 | CM.ED ---
Social Work SW met with patient's sister, Sunita, and introduced self and role as [facility] SW. SW inquired about completion of AD. Sunita states she is patient's HCPOA and patient's sister Jordana is durable power of banking attorney. Sunita has documents in her car and will bring them in to be copied when able. Sunita unsure if patient has LW but states he does have DRN order. Sharmin Lam MSW, IRMA
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
[2023-01-12] VITALS (10 sets, daily range): BP systolic 119–142; BP diastolic 57–87; PULSE 96–104; RESP 18–22; TEMP 36.2–37.1; O2SAT 93–97
[2023-01-12 00:24] LABS: Bedside Glucose 107 mg/dL (74-106)
--- NOTE | 2023-01-12 03:15 | NURSING ---
Addendum entered by Kita Atkinson 01/12/23 04:40: Patient had pulled out a second NG tube. Patient swinging at nursing staff while yelling garbled profanity. Dr. Mccray reviewed CT and ordered that another NG be placed. She gave order for soft restraints. Soft restraints applied to patients bilateral wrists. NG inserted. Patient yelling garbled profanity at nursing staff. After NG inserted patient calmed down. Soft restraints remain on patient per order. Original Note: Patient pulled out NG. Attempting to put in another NG.
[2023-01-12 03:37] LABS: Bedside Glucose 116 mg/dL (74-106)
--- NOTE | 2023-01-12 04:01 | RAD_ITS ---
STUDY: X-RAY - ABDOMEN/PELVIS REASON FOR EXAM: Male, 62 years old. NG verification for placement TECHNIQUE: Single AP view of the abdomen / pelvis. 4 images were obtained. COMPARISON: January 11, 2023 4:26 PM FINDINGS: Normal visualized lung bases. And a tube is present the tip is in the stomach. There is an unremarkable bowel gas pattern. There is no demonstrated free abdominal air. The visualized liver, spleen and kidneys are grossly normal in size and morphology. Normal soft tissue structures. Normal visualized osseous structures. RAD/Abdomen Single View (Portable) IMPRESSION: NG tube is present the tip is in the stomach. Electronically Signed: Ayanna Murguia MD at 4:55 EDT ,
[2023-01-12 06:56] LABS: Bedside Glucose 124 mg/dL (74-106)
--- NOTE | 2023-01-12 06:58 | NURSING ---
This RN called sister, Sunita, to let her know that patient pulled out two NGs and then was placed in soft restraints and another NG was placed. Sunita understood and said she was warned if he pulled it out he would have to get another one put back in. She said the vistiril given in ED was effective and she would be ok with him getting that medication again if necessary.
[2023-01-12] MEDS: Menthol/Lanolin/Calamine/Znox 113 GM Tube 1 APPLIC TOPICAL ×2 (10:06→23:43)
[2023-01-12] MEDS: Lidocaine 5% Patch 1 PATCH TOPICAL (10:13)
--- NOTE | 2023-01-12 10:45 | CASEMGMT ---
Social Work Plan will be for pt to return to [facility], see ED SW note for details. D/C city planner will send updates when more available. Also, pt's sister had told ED SW will bring in the POA documents to be placed on the chart. GEGE Zimmer
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
[2023-01-12 12:30] LABS: Bedside Glucose 114 mg/dL (74-106)
--- NOTE | 2023-01-12 12:32 | RAD_ITS ---
STUDY: X-RAY - ABDOMEN/PELVIS REASON FOR EXAM: Male, 62 years old. NG tube placement. TECHNIQUE: Single AP view of the abdomen / pelvis. COMPARISON: Earlier in the day. FINDINGS: Tip of NG tube projected over the upper mid mid abdomen and has been retracted significantly since the comparison study earlier in the day. NG tube should be advanced at least 4-6 cm. Mild gaseous distention of the stomach and small bowel and large bowel air which may represent an ileus. . RAD/Abdomen Single View IMPRESSION: Tip of the NG tube should be advanced at least 4-6 cm. See discussion above. Electronically Signed: Jose Vázquez MD at 15:29 EDT ,
--- NOTE | 2023-01-12 14:26 | PCM.PROGNOTE ---
Subjective Subjective Patient seen and examined. He is nonverbal so unable to do review of systems. He is on room air and had an NG tube in situ. He has remained hemodynamically stable. Objective Data Objective Data Vital Signs: Vital Signs Temp Pulse Resp BP Pulse Ox O2 Del Method O2 Flow Rate 98.3 F 100 18 132/79 H 94 Room Air 2 01/12/23 12:00 01/12/23 12:00 01/12/23 12:00 01/12/23 12:00 01/12/23 12:00 01/12/23 12:00 01/11/23 16:24 Oxygen Flow Rate (L/min) 2 Oxygen Delivery Method Room Air Weight: 193 lb 9.054 oz Body Mass Index (BMI) 33.2 Intake & Output: Intake and Output for Last 24 Hours 01/10/23 01/11/23 01/12/23 23:59 23:59 23:59 Intake Total 100 / 100 300 / 300 Output Total 950 / 1150 1275 / 1275 Balance -850 / -1050 -975 / -975 Lab / Micro Data 01/11/23 11:15 01/11/23 11:15 Labs: Laboratory Results - last 24 hr 01/11/23 22:03: POC Glucose 107 H 01/12/23 02:46: POC Glucose 116 H 01/12/23 06:07: POC Glucose 124 H 01/12/23 11:53: POC Glucose 114 H Micro: Microbiology 01/11/23 11:56 Suprapubic Tap Urine Culture - Preliminary Yeast Like Organism Radiography Diagnostic Testing: Radiology Impression KUB X-Ray 01/11/23 16:20 IMPRESSION: Moderately distended stomach with a nasogastric tube in place. Electronically Signed: Angelito Garcia DO at 16:50 EDT , KUB X-Ray 01/12/23 04:01 IMPRESSION: NG tube is present the tip is in the stomach. Electronically Signed: Ayanna Murguia MD at 4:55 EDT , Physical Exam Const alert Constitutional Narrative: nonverbal HEENT normocephalic, head/scalp atraumatic and moist oral mucous membranes Eyes PERRL and EOMs intact bilaterally Neck no lymphadenopathy Resp Resp Narrative: mildly diminished breath sounds bibasally, no wheezes or crackles. on room air. Cardio regular rate, regular rhythm, S1 normal heart sound, S2 normal heart sound and no murmurs GI normal to inspection, nondistended, normoactive bowel sounds, soft to palpation, non-tender and non-distended Extremity normal capillary refill, no clubbing, cyanosis or edema and no calf tenderness Skin General Skin Exam: no breakdown Neuro CN's II-XII intact bilaterally Neuro Narrative: nonverbal Psych Psych Narrative: flat affect Assessment & Plan Assessment/Plan (1) Acute distention of stomach: (2) Gastric outlet obstruction: PLAN: Plan #Sepsis due to UTI. CT abdomen showed: on IV zosyn urine and blood cultures ordred. has Ricci catheter in place. To be changed during this admission #Possible gastric outlet obstruction with small bowel obstruction (partial) CT abdomen showed a very large gastric bubble has had ileus and bowel obstrution in the past general surgery consulted; general surgery recommends gastroenterology consult as patient is well known to general surgery continue keeping NPO. Has NG tube inserted and placed to suction #History of seizure disorder: on carbamazepine and keppra #Type 2 diabetes mellitus: metformin on hold. ISS. Accuchecks ACHS. Hypertension: On ramipril and furosemide. These are currently on hold as patient is NPO. #History of DVT: on eliquis 2.5mg bid. Will hold until GI evaluates him to see if thre will be any operative intervention #History of vascular dementia: stable. DVT prophylaxis: SCDs. Eliquis currently on hold. Charges/Coding Visit Charges Inpatient E&M: 49359 Subs Hosp L3
[2023-01-12 17:20] LABS: Bedside Glucose 102 mg/dL (74-106)
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
--- NOTE | 2023-01-12 21:15 | RAD_ITS ---
STUDY: X-RAY - ABDOMEN/PELVIS REASON FOR EXAM: Male, 62 years old. advanced ng tube TECHNIQUE: Single AP view of the abdomen / pelvis. COMPARISON: Same day, 12:30 PM. FINDINGS: Normal visualized lung bases. Nasogastric tube terminates in the mid stomach. There is an unremarkable bowel gas pattern. There is no demonstrated free abdominal air. Electronically Signed: Parveen Corcoran MD at 21:41 EDT , RAD/Abdomen Single View (Portable) IMPRESSION: undefined
[2023-01-13] VITALS (10 sets, daily range): BP systolic 124–148; BP diastolic 66–87; PULSE 92–102; RESP 16–24; TEMP 36.3–36.6; O2SAT 93–100; BMI 33.2
[2023-01-13] MEDS: Lactated Ringers 1,000 ML 75 ML IV (00:06)
[2023-01-13 00:55] LABS: Bedside Glucose 111 mg/dL (74-106)
[2023-01-13 06:21] LABS: Bedside Glucose 106 mg/dL (74-106)
[2023-01-13 07:05] LABS: Bedside Glucose 107 mg/dL (74-106)
--- NOTE | 2023-01-13 07:51 | PN.HOSP_ITS ---
Reason for Visit Reason for Visit: Diagnoses Ulcer of esophagus without bleeding (01/11/23) Acute dilatation of stomach (01/11/23) Adult hypertrophic pyloric stenosis (01/11/23) Gastroparesis (01/11/23) Urinary tract infection, site not specified (01/11/23) Subjective Subjective Patient resting in bed with NG in place with dark output Objective Data Objective Data Vital Signs: Vital Signs Temp Pulse Resp BP Pulse Ox O2 Del Method O2 Flow Rate 97.4 F L 96 20 H 134/87 H 94 Room Air 2 01/13/23 02:15 01/13/23 06:15 01/13/23 06:15 01/13/23 06:15 01/13/23 06:15 01/13/23 06:15 01/11/23 16:24 Oxygen Flow Rate (L/min) 2 Oxygen Delivery Method Room Air Weight: 87.8 kg Body Mass Index (BMI) 33.2 Intake & Output: Intake and Output for Last 24 Hours 01/11/23 01/12/23 01/13/23 23:59 23:59 23:59 Intake Total 100 / 100 525 / 555 340 / 340 Output Total 950 / 1150 3525 / 3525 650 / 650 Balance -850 / -1050 -3000 / -2970 -310 / -310 Lab / Micro Data 01/13/23 09:15 01/13/23 09:15 Labs: Laboratory Results - last 24 hr 01/12/23 11:53: POC Glucose 114 H 01/12/23 16:47: POC Glucose 102 01/12/23 23:46: POC Glucose 111 H 01/13/23 03:59: POC Glucose 106 01/13/23 06:17: POC Glucose 107 H Micro: Microbiology 01/11/23 11:56 Suprapubic Tap Urine Culture - Preliminary Yeast Like Organism Radiography Diagnostic Testing: Radiology Impression KUB X-Ray 01/12/23 12:32 IMPRESSION: Tip of the NG tube should be advanced at least 4-6 cm. See discussion above. Electronically Signed: Jose Vázquez MD at 15:29 EDT , KUB X-Ray 01/12/23 21:15 IMPRESSION: undefined Physical Exam Narrative General: Alert, no acute distress HEENT: Atraumatic, normocephalic Eyes: Anicteric, normal conjunctiva, extraocular movements grossly intact Neck: Supple Respiratory: Clear to auscultation bilaterally, normal respiratory effort Cardiovascular: Regular rate and rhythm GI: Soft, nontender, nondistended, no rebound or guarding Extremities: No edema Musculoskeletal: Moving all extremities Neuro: Contracted left upper extremity Skin: No rashes appreciated Psych: Cooperative Assessment & Plan Assessment/Plan (1) Urinary tract infection: PLAN: Plan Patient is a 62 M with history of vascular dementia, CVA, traumatic brain injury, bipolar disorder, COPD not on home O2, type 2 diabetes, DVT, seizure disorder and urinary retention with indwelling suprapubic catheter who presented to [facility] ED from his [facility] on 01[facility]23 with concern for UTI. #Sepsis without shock suspected source UTI -WBC 17 on admission with left shift, CT abdomen with findings that could be consistent with cystitis and UA with leuk esterase, white blood cell 10-25 and 1+ bacteria with 10 occult blood. Patient with chronic suprapubic catheter. Urine culture only with yeastlike organism with colony count of 1000-10,000, but cultures pending -Patient is on Zosyn as ED physician was able to access previous urine culture sensitivities and it was sensitive to Zosyn. -It appears he was on Merrem and linezolid with stop dates of 01/16 and 01/15 respectively, do not necessarily see need for MRSA coverage, continue Zosyn #Severe abdominal distention There is some concern for at least a partial small bowel obstruction given patient's stomach distention with seeming transitional point at duodenum. ED doc spoke with patient's sister; patient has never had abdominal surgery but has had issues with ileus and obstruction in the past. Has history of removal of stool impaction under anesthesia back in 2013. -Surgery consulted, appreciate recs. Planning to place NG tube for decompression and monitor. Monitor if patient is passing gas and/or having bowel movements. -01/13: Surgery and GI on board, patient continues to have NG tube, n.p.o. patient for EGD with possible dilation today #History gastric ulcers -PPI changed to IV given patient unable to take p.o. at this time -Follows with GI in outpatient basis -GI also on board #Hx vascular dementia, CVA, TBI ? Unable to obtain much history from patient as he is essentially nonverbal. Patient lives in nursing facility, will plan for back to facility on discharge. -Continue supportive care -CVA seems to been secondary to thrombosis per SNF med list -Patient's Eliquis presently held #History of seizure disorder and bipolar d/o ? Unable to give home p.o. carbamazepine given NG tube at this time. We will start IV Keppra 500 mg twice daily. Restart home medication as able. -Unclear nuances of patient's seizure disorder and if carbamazepine is more for behavioral. If it is indeed more behavioral Keppra can exacerbate this, will attempt to clarify as able. Continue Neurontin as patient is able, presently n.p.o. since has not been given #Jok-eagtqnx-trwqkztpp type 2 diabetes - Medications of metformin 1000 mg twice daily, gabapentin for 100 mg every 6 hours. Metformin held, sliding scale insulin while inpatient as needed. Continue home gabapentin once patient tolerating p.o. #Hypertension ? On home ramipril 2.5 mg at night, furosemide 20 mg daily. Holding these medications for now, restart as needed. #History of DVT ? Had left lower extremity DVT April 2021, on home Eliquis. Presently on hold in the event patient needs surgery/intervention #Normocytic anemia -On presentation hemoglobin 10.1, previously in July 2021 was 14.4, repeat labs -We will also obtain iron panel, B12, folate DVT prophylaxis: Eliquis on hold, scds ordered CODE STATUS: Full code, unverified Expected disposition: Back to nursing facility, TBD Total clinical time spent by myself addressing the patient's medical issues, reviewing all the data, and collaborating with patient's care team: 57 minutes. Charges/Coding Visit Charges Inpatient E&M: 03037 Subs Hosp L3
--- NOTE | 2023-01-13 08:53 | CASEMGMT ---
Discharge Planning Updates sent to [facility]. Asked precert will be needed. Awaiting response. Natalie Silva, Discharge Planning Asst.
[2023-01-13 09:32] LABS: Absolute Lymphocyte Count 1.66 X10^3/uL (0.83-4.51); Absolute Neutrophil Count 11.9 X10^3/uL (2.0-7.7); Basophil% 0.6 % (0-1); Eosinophil# 0.25 X10^3/uL; Eosinophils% 1.6 % (0-5); Hematocrit 35.5 % (40-54); Hemoglobin 10.9 g/dL (13.0-16.5); Lymphocyte # 1.66 X10^3/ul (0.83-4.51); Lymphocyte % 10.8 % (19-41); Mean Corp Hgb Conc 30.7 g/dL (32-36); Mean Corpuscular Hgb 27.3 pg (27.0-32.0); Mean Platelet Vol. 9.3 fl (6.2-12.0); Monocyte# 0.96 X10^3/uL; Monocyte% 6.2 % (0-10); NRBC Flagged by Analyzer 0 % (0-5); Neutrophil % 77.4 % (47-70); Platelet Count 714 K/mm3 (150-450); RBC Distribution Width CV 16.1 % (11.6-14.6); RBC Distribution Width SD 52.5 fl (35.1-43.9); Red Blood Count 3.99 M/mm3 (4.6-6.2); White Blood Count 15.4 K/mm3 (4.4-11.0)
[2023-01-13 09:48] LABS: Anion Gap 9 (5-15); BUN 17 mg/dL (7-18); BUN/Creat Ratio 22.6 RATIO (10-20); Calcium,Total 8.6 mg/dL (8.5-10.1); Chloride 103 mmol/L (98-107); Creatinine, Serum 0.75 mg/dL (0.70-1.30); EST Glomerular Filtration Rate 111 mL/min (>60); Est Glom Filt Rate - Afr Amer 134 mL/min (>60); Estimated Creatinine Clearance 83.32 ml/min; Glucose 123 mg/dL (74-106); Potassium 3.2 mmol/L (3.5-5.1); Sodium Level 143 mmol/L (136-145)
[2023-01-13 09:51] LABS: Vitamin B12 745 pg/mL (211-911)
[2023-01-13 10:08] LABS: Iron 21 ug/dL (65-175); Iron Binding Capacity,Total 200 ug/dL (250-450); PERCENT IRON SATURATION 10.5 % (15.0-55.0); T4 Free Direct 1.96 ng/dL (0.76-1.46)
[2023-01-13] MEDS: 0.9% Saline Lock 10 ML Syringe IV (10:37)
[2023-01-13 10:55] LABS: Partial Thromboplast Time 65.6 Seconds (24.1-36.2)
--- NOTE | 2023-01-13 11:11 | CASEMGMT ---
Discharge Planning Per OP, patient will not need a precert to return to facitity. SW updated. Natalie Silva, Discharge Planning Asst.
--- NOTE | 2023-01-13 11:26 | PN.SURG_ITS ---
Subjective Subjective Patient seen and examined during AM rounds. He appears less agitated today. He is due to go down for EGD with gastroenterology imminently. He asked for something to drink and states that his throat is sore from his nasogastric tube. Objective Data Objective Data Vital Signs: Vital Signs Temp Pulse Resp BP Pulse Ox O2 Del Method O2 Flow Rate 97.7 F L 98 18 138/77 H 93 Room Air 2 01/13/23 09:11 01/13/23 09:11 01/13/23 09:11 01/13/23 09:11 01/13/23 09:11 01/13/23 09:55 01/11/23 16:24 Oxygen Flow Rate (L/min) 2 Oxygen Delivery Method Room Air Weight: 193 lb 9.054 oz Body Mass Index (BMI) 33.2 Intake & Output: Intake and Output for Last 24 Hours 01/11/23 01/12/23 01/13/23 23:59 23:59 23:59 Intake Total 100 / 100 525 / 555 555 / 555 Output Total 950 / 1150 3525 / 3525 650 / 650 Balance -850 / -1050 -3000 / -2970 -95 / -95 Lab / Micro Data 01/13/23 09:15 01/13/23 09:15 Labs: Laboratory Results - last 24 hr 01/12/23 11:53: POC Glucose 114 H 01/12/23 16:47: POC Glucose 102 01/12/23 23:46: POC Glucose 111 H 01/13/23 03:59: POC Glucose 106 01/13/23 06:17: POC Glucose 107 H 01/13/23 09:15: WBC 15.4 H, RBC 3.99 L, Hgb 10.9 L, Hct 35.5 L, MCV 89.0, MCH 27.3, MCHC 30.7 L D, RDW Std Deviation 52.5 H, RDW Coeff of Janice 16.1 H, Plt Count 714 H, MPV 9.3, Immature Gran % (Auto) 3.400 H, Neut % (Auto) 77.4 H, Lymph % (Auto) 10.8 L, [place] % (Auto) 6.2, Eos % (Auto) 1.6, Baso % (Auto) 0.6, Absolute Neuts (auto) 11.9 H, Absolute Lymphs (auto) 1.66, Nucleated RBC % 0, Sodium 143, Potassium 3.2 L, Chloride 103, Carbon Dioxide 31.0, Anion Gap 9, BUN 17, Creatinine 0.75, Estim Creat Clear Calc 83.32, Est GFR (MDRD) Af Amer 134, Est GFR (MDRD) Non-Af 111, BUN/Creatinine Ratio 22.6 H, Glucose 123 H, Calcium 8.6, Iron 21 L, TIBC 200 L, Iron Saturation 10.5 L, Vitamin B12 745, Folate 18.90, TSH 0.60, Free T4 1.96 H 01/13/23 10:37: APTT 65.6 H Micro: Microbiology 01/11/23 11:56 Suprapubic Tap Urine Culture - Preliminary Yeast Like Organism Radiography Diagnostic Testing: Radiology Impression KUB X-Ray 01/12/23 12:32 IMPRESSION: Tip of the NG tube should be advanced at least 4-6 cm. See discussion above. Electronically Signed: Jose Vázquez MD at 15:29 EDT , KUB X-Ray 01/12/23 21:15 IMPRESSION: undefined Physical Exam Const oriented x3 Resp normal respiratory effort GI GI Narrative: Improved abdominal distention, soft, nontender to palpation. Nasogastric tube appears to be in place draining dark, thin output. Assessment & Plan Assessment/Plan (1) Acute distention of stomach: (2) Gastric outlet obstruction: PLAN: Plan This is a 62-year-old, currently institutionalized, male with extensive com orbidities who presents with a rather incidental diagnosis of gastric outlet obstruction since his primary purpose for presentation yesterday was to rule out a urinary tract infection. Yesterday worked with nursing to get patient's nasogastric tube appropriately placed within his stomach after he had pulled it out early yesterday. KUB from last evening showed the sideport well within the gastric body. This morning, patient's distention appears improved. GI consultation was made yesterday and patient imminently due to go down for EGD with gastroenterology for potential dilation. I do think we need to increase his Protonix to 40 mg twice daily as he appears to have some bloody output?like ly owing to the local trauma from his tube. Will await the results of his endoscopy session today. Charges/Coding Visit Charges Inpatient E&M: 33087 Subs Hosp L2
--- NOTE | 2023-01-13 11:46 | CASEMGMT ---
Discharge Planning OP notified that patient will likely return this weekend. Greensheet and transport form placed in chart. Natalie Silva, Discharge Planning Asst.
--- NOTE | 2023-01-13 12:00 | IMM_PTH ---
PATHOLOGY RESULTS PATIENT: CHACORTA COLEY LOC: MS3 U#:[id number] AGE/SX: 62/M ROOM: [facility] [place] RE01/11/[address]: Dr. Sylvia Fuentes MD : 1960 BED: 1 DIS: 01/18/2023 SPEC #: [id number] RECD: 01/16/23 14:25 STATUS: ELVIA REQ #: [id number] MARGARITO: 01/13/23 12:[address]: Ra Denisehsaan DEPT: IMMUNOHISTOCHEMISTRY RECD BY: Sydney Lopez ENTERED: 01/16/23 14:26 SP TYPE: IMMUNO OTHR DR: DO Dr. Chacorta Ceja MD Dr. Nana Yaa Koram, MD Dr. Paige Pierce, MD Dr. Robert Leininger, MD Dr. Thomas Lehner, MD Tissues: Stomach, NOS Procedures: H Pylori (initial) PHYSICIAN & INSTITUTION [place] [address] SPECIMEN INFORMATION: Tissue Source: Gastric body Clinical Info: Erosive esophagitis, gastroparesis, gastric outlet obstruction Specimen Number: [id number] CPT code: 89073 METHODOLOGY: Deparaffinized sections of prefer/formalin-fixed tissue or PAP/DQ stained slides are incubated with monoclonal/polyclonal antibodies/oligonucleotide probes. Localization is made via biotin free immunoperoxidase method. Appropriate controls are performed and reacted as expected. Results on target cell population are indicated in the following table: RESULTS: ANTIBODY / CLONE RESULT H Pylori (polyclonal) negative These tests were developed and their performance characteristics determined by [facility]. They may not have been cleared or approved by the U.S. Food and Drug Administration. The FDA has determined that such clearance or approval is not necessary. The above immunohistochemical/dualISH markers are ordered and reviewed by the Pathologist. INTERPRETATION: Gastric body, biopsy: Negative for Helicobacter pylori organisms. SJ:av 01/17/2023
--- NOTE | 2023-01-13 12:00 | EGD_PTH ---
PATHOLOGY RESULTS PATIENT: CHACORTA COLEY LOC: MS3 U#:[id number] AGE/SX: 62/M ROOM: [facility] [place] RE01/11/[address]: Dr. Sylvia Fuentes MD : 1960 BED: 1 DIS: 01/18/2023 SPEC #: [id number] RECD: 01/13/23 14:30 STATUS: ELVIA RENettie #: [id number] MARGARITO: 01/13/23 12:[address]: Jhonatan Walker DEPT: SURGICAL PATHOLOGY RECD BY: Meg Dhillon ENTERED: 01/16/23 10:54 SP TYPE: EGD BIOPSY OTHR DR: DO Dr. Chacorta Ceja MD Dr. Nana Yaa Koram, MD Dr. Paige Pierce, MD Dr. Thomas Lehner, MD Tissues: Gastric mucous membrane Procedures: Surgery Specimen Level IV Comments: @ Ordering doctor for SUIV edited from to @ by STAN at 01/16/23 1426 @ Submitting doctor edited from to @ by UBALDOOD at 01/16/23 1426 HEADER OPERATION: EGD, biopsy PRE-OP DIAGNOSIS: Erosive esophagitis, gastroparesis, gastric outlet obstruction TISSUE SUBMITTED: Gastric body biopsy MICROSCOPIC DIAGNOSIS Gastric body, biopsy: Fragments of gastric mucosa with extensive ulceration, marked acute inflammation and moderate chronic inflammation. See comment. Glory 01/17/2023 COMMENT The results of immunohistochemistry for Helicobacter pylori will be reported separately ([id number]). MICROSCOPIC DESCRIPTION Slides are reviewed. GROSS DESCRIPTION Received in fixative is one container labeled with the patient's name and designated gastric body biopsy. The specimen consists of multiple irregular fragments of light [place] soft tissue that in aggregate measure 1.5 x 0.2 x 0.1 cm. The specimen is totally submitted in one cassette. / MOHAN:av 01/16/2023 TC:2 CPT: 97217
--- NOTE | 2023-01-13 12:33 | OP.EGD_ITS ---
Patient Name: Chacorta Edwards Procedure Date: 01/13/2023 12:07 PM Date of : 1960 Age: 62 Procedure: Upper GI endoscopy Indications: Epigastric abdominal pain, Hematemesis Providers: Jhonatan Walker DO Medicines: Monitored Anesthesia Care Patient Profile: This is a 62 year old male. Refer to note in patient chart for documentation of history and physical. Patient has symptoms of acute dyspepsia and acute vomiting. Complications: No immediate complications. Procedure: Pre-Anesthesia Assessment: - Prior to the procedure, a History and Physical was performed, and patient medications and allergies were reviewed. The patient is competent. The risks and benefits of the procedure and the sedation options and risks were discussed with the patient. All questions were answered and informed consent was obtained. Patient identification and proposed procedure were verified by the physician. Mental Status Examination: normal. CV Examination: normal. Prophylactic Antibiotics: The patient does not require prophylactic antibiotics. Prior Anticoagulants: The patient has taken no anticoagulant or antiplatelet agents except for NSAID medication. ASA Grade Assessment: II - A patient with mild systemic disease. After reviewing the risks and benefits, the patient was deemed in satisfactory condition to undergo the procedure. The anesthesia plan was to use monitored anesthesia care (MAC). Immediately prior to administration of medications, the patient was re-assessed for adequacy to receive sedatives. The heart rate, respiratory rate, oxygen saturations, blood pressure, adequacy of pulmonary ventilation, and response to care were monitored throughout the procedure. The physical status of the patient was re-assessed after the procedure. After obtaining informed consent, the endoscope was passed under direct vision. Throughout the procedure, the patient's blood pressure, pulse, and oxygen saturations were monitored continuously. The Endoscope was introduced through the mouth, and advanced to the second part of duodenum. The upper GI endoscopy was accomplished without difficulty. The patient tolerated the procedure well. Scope In: 12:17:06 PM Scope Out: 12:21:50 PM Total Procedure Duration Time 0 hours 4 minutes 44 seconds Findings: LA Grade C (one or more mucosal breaks continuous between tops of 2 or more mucosal folds, less than 75% circumference) esophagitis with bleeding was found 31 to 40 cm from the incisors. Coagulation for hemostasis using argon plasma at 0.3 liters/minute and 20 jason was successful. Estimated blood loss was minimal. Three non-bleeding cratered gastric ulcers with no stigmata of bleeding were found in the gastric body. The largest lesion was 9 mm in largest dimension. Biopsies were taken with a cold forceps for histology. Verification of patient identification for the specimen was done. Estimated blood loss was minimal. Patchy moderate inflammation characterized by congestion (edema), erosions and erythema was found in the gastric body and in the gastric antrum. Biopsies were taken with a cold forceps for histology. Verification of patient identification for the specimen was done. Biopsies were taken with a cold forceps for Helicobacter pylori testing. Verification of patient identification for the specimen was done. Estimated blood loss was minimal. A benign-appearing, intrinsic moderate stenosis was found at the pylorus. This was traversed. A TTS dilator was passed through the scope. Dilation with a 20 mm pyloric balloon dilator was performed. The dilation site was examined and showed moderate improvement in luminal narrowing. Estimated blood loss was minimal. No gross lesions were noted in the second portion of the duodenum. Impression: - LA Grade C erosive esophagitis with bleeding. Treated with argon plasma coagulation (APC). - Non-bleeding gastric ulcers with no stigmata of bleeding. Biopsied. - Gastritis. Biopsied. - Gastric stenosis was found at the pylorus. Dilated. - No gross lesions in the second portion of the duodenum. Recommendation: - Return patient to hospital tubbs for ongoing care. - Full liquid diet today. - Use Protonix (pantoprazole) 40 mg PO BID for the rest of the patient's life. - The patient is not currently taking aspirin or NSAID medications. - Await pathology results. - Repeat upper endoscopy for surveillance. - Use sucralfate tablets 1 gram PO QID. - Continue present medications. - The patient is not currently taking anticoagulant or antiplatelet agents. - No aspirin, ibuprofen, naproxen, or other non-steroidal anti-inflammatory drugs for 8 weeks. Procedure Code(s): --- Professional --- 33207, 59, Esophagogastroduodenoscopy, flexible, transoral; with control of bleeding, any method 55782, Esophagogastroduodenoscopy, flexible, transoral; with dilation of gastric/duodenal stricture(s) (eg, balloon, bougie) 07511, 59,51, Esophagogastroduodenoscopy, flexible, transoral; with biopsy, single or multiple CPT copyright 2021 [employer]. All rights reserved. The codes documented in this report are preliminary and upon sales representative [employer] review may be revised to meet current compliance requirements. Jhonatan Walker DO 01/13/2023 12:32:44 PM This report has been signed electronically. Number of Addenda: 0 Note Initiated On: 01/13/2023 12:07 PM
--- NOTE | 2023-01-13 12:33 | OP.CCLET_ITS ---
01/13/2023 Gene Cr Re : Upper GI endoscopy procedure for Chacorta Edwards Dear Shaye This procedure was performed on Friday, January 13, 2023. My impressions and recommendations are as follows: Impressions : - LA Grade C erosive esophagitis with bleeding. Treated with argon plasma coagulation (APC). - Non-bleeding gastric ulcers with no stigmata of bleeding. Biopsied. - Gastritis. Biopsied. - Gastric stenosis was found at the pylorus. Dilated. - No gross lesions in the second portion of the duodenum. Recommendations : - Return patient to hospital tubbs for ongoing care. - Full liquid diet today. - Use Protonix (pantoprazole) 40 mg PO BID for the rest of the patient's life. - The patient is not currently taking aspirin or NSAID medications. - Await pathology results. - Repeat upper endoscopy for surveillance. - Use sucralfate tablets 1 gram PO QID. - Continue present medications. - The patient is not currently taking anticoagulant or antiplatelet agents. - No aspirin, ibuprofen, naproxen, or other non-steroidal anti-inflammatory drugs for 8 weeks. My findings are described in the full procedure note, which is enclosed. If I can be of further assistance, please feel free to contact me at . Sincerely, Jhonatan Walker, 01/13/2023 12:32:44 PM This report has been signed electronically.
[2023-01-13] MEDS: 0.9% Normal Saline 1,000 ML 75 ML IV (13:05)
[2023-01-13] MEDS: Potassium Chloride 10mEq/100mL 10 MEQ/100 ML IV.SOLN. 100 MEQ IV BOLUS ×2 (13:15→14:28)
[2023-01-13] MEDS: Gabapentin 100 MG Capsule PO ×3 (14:29→23:03)
[2023-01-13] MEDS: Gabapentin 300 MG Capsule PO ×3 (14:29→23:03)
[2023-01-13] MEDS: Lidocaine 5% Patch 1 PATCH TOPICAL (14:30)
[2023-01-13] MEDS: Cilostazol 50 MG Tablet 100 MG PO ×2 (14:30→21:36)
[2023-01-13 15:10] LABS: Bedside Glucose 109 mg/dL (74-106)
[2023-01-13] MEDS: Menthol/Lanolin/Calamine/Znox 113 GM Tube 1 APPLIC TOPICAL ×2 (15:11→20:09)
[2023-01-13 17:34] LABS: Bedside Glucose 130 mg/dL (74-106)
--- NOTE | 2023-01-13 17:39 | PCM.RX.CS ---
Consult Antibiotic Management Pharmacy has been consulted to manage selected antiobiotic: Vancomycin Type of Intervention Type of Consult: New start Suspected Infection Suspected Infection: Other (UTI) Prior Doses of Antibiotics Prior Doses of Antibiotics Received/Current Regimen: Patient received 200 mg IV vancomycin x 1 01/13/23 @ 1707 Patient is also receiving zosyn 3.375 g Q8H Labs Labs: Sodium 143 mmol/L (136-145) 01/13/23 09:15 Potassium 3.2 mmol/L (3.5-5.1) L 01/13/23 09:15 Chloride 103 mmol/L (98-107) 01/13/23 09:15 Carbon Dioxide 31.0 mmol/L (21.0-32.0) 01/13/23 09:15 Anion Gap 9 (5-15) 01/13/23 09:15 BUN 17 mg/dL (7-18) 01/13/23 09:15 Creatinine 0.75 mg/dL (0.70-1.30) 01/13/23 09:15 Est GFR (MDRD) Af Amer 134 mL/min (>60) 01/13/23 09:15 Est GFR (MDRD) Non-Af 111 mL/min (>60) 01/13/23 09:15 BUN/Creatinine Ratio 22.6 RATIO (10-20) H 01/13/23 09:15 Glucose 123 mg/dL (74-106) H 01/13/23 09:15 Microbiology Microbiology: Microbiology 01/11/23 11:56 Suprapubic Tap Urine Culture - Final Presumptive C albicans 01/11/23 11:56 Blood Culture (Wb) - Anticubital Right Blood Culture - Preliminary No growth in 48 hours. 01/11/23 11:15 Blood Culture (Wb) - Arm Right Blood Culture - Preliminary No growth in 48 hours. Dosing Weight Weight used for dosin.8 kg Estimated Creatinine Clearance Estimated Creatinine Clearance: 83 Goal Trough Goal Trough: 15-20 mcg/mL Pharmacy Plan for Drug Dosing Pharmacy Plan for Drug Dosing: Vancomycin 2000 mg IV x 1 loading dose, followed by 1500 mg Q12H starting 01/14/23 @ 0500 with trough prior to 4th dose. Pharmacy Service will continue to monitor and adjust dosing as required. Follow-Up Labs Follow-Up Labs: Trough: Vancomycin Date/Time Labs Ordered Labs to be done on [date and time ordered]: 01/15/23 @ 0434
[2023-01-13] MEDS: Atorvastatin Calcium 20 MG Tablet PO (20:11)
[2023-01-13 20:34] LABS: Prealbumin 15.1 mg/dL (20.0-40.0)
[2023-01-13 20:39] LABS: Bedside Glucose 235 mg/dL (74-106)
[2023-01-13] MEDS: Insulin Lispro 100 UNIT/ML INSULN.PEN SC (21:34)
[2023-01-13 21:48] LABS: Urea Nitrogen, Urine 525 mg/dL (NO RANGE EST.)
[2023-01-13] MEDS: Metoclopramide 10 MG/2 ML Vial 5 MG IV (23:04)
[2023-01-14 03:30] VITALS: BP 109/60; PULSE 78; RESP 18; TEMP 37; O2SAT 92
[2023-01-14] MEDS: 0.9% Normal Saline 1,000 ML 75 ML IV (03:57)
[2023-01-14] MEDS: Gabapentin 100 MG Capsule PO ×4 (06:09→22:40)
[2023-01-14] MEDS: Gabapentin 300 MG Capsule PO ×4 (06:09→22:40)
[2023-01-14] MEDS: Metoclopramide 10 MG/2 ML Vial 5 MG IV ×4 (06:09→22:41)
[2023-01-14 06:48] LABS: Bedside Glucose 101 mg/dL (74-106)
[2023-01-14 06:48] LABS: Bedside Glucose 112 mg/dL (74-106)
--- NOTE | 2023-01-14 07:02 | PCM.PN.SRG ---
Subjective Subjective Patient tolerating full liquids per GI after EGD and dilation of pyloric stricture Objective Data Objective Data Vital Signs: Vital Signs Temp Pulse Resp BP Pulse Ox O2 Del Method O2 Flow Rate 98.6 F 78 18 109/60 92 Room Air 2 01/14/23 03:30 01/14/23 03:30 01/14/23 03:30 01/14/23 03:30 01/14/23 03:30 01/14/23 03:30 01/11/23 16:24 Oxygen Flow Rate (L/min) 2 Oxygen Delivery Method Room Air Weight: 193 lb 9.054 oz Body Mass Index (BMI) 33.2 Intake & Output: Intake and Output for Last 24 Hours 01/12/23 01/13/23 01/14/23 23:59 23:59 23:59 Intake Total 525 / 555 3352.25 / 3352.25 1580 / 1580 Output Total 3525 / 3525 2100 / 2100 250 / 250 Balance -3000 / -2970 1252.25 / 1252.25 1330 / 1330 Lab / Micro Data 01/13/23 09:15 01/13/23 09:15 Labs: Laboratory Results - last 24 hr 01/13/23 06:17: POC Glucose 107 H 01/13/23 09:15: WBC 15.4 H, RBC 3.99 L, Hgb 10.9 L, Hct 35.5 L, MCV 89.0, MCH 27.3, MCHC 30.7 L D, RDW Std Deviation 52.5 H, RDW Coeff of Janice 16.1 H, Plt Count 714 H, MPV 9.3, Immature Gran % (Auto) 3.400 H, Neut % (Auto) 77.4 H, Lymph % (Auto) 10.8 L, [place] % (Auto) 6.2, Eos % (Auto) 1.6, Baso % (Auto) 0.6, Absolute Neuts (auto) 11.9 H, Absolute Lymphs (auto) 1.66, Nucleated RBC % 0, Sodium 143, Potassium 3.2 L, Chloride 103, Carbon Dioxide 31.0, Anion Gap 9, BUN 17, Creatinine 0.75, Estim Creat Clear Calc 83.32, Est GFR (MDRD) Af Amer 134, Est GFR (MDRD) Non-Af 111, BUN/Creatinine Ratio 22.6 H, Glucose 123 H, Calcium 8.6, Iron 21 L, TIBC 200 L, Iron Saturation 10.5 L, Vitamin B12 745, Folate 18.90, TSH 0.60, Free T4 1.96 H 01/13/23 10:37: APTT 65.6 H 01/13/23 14:28: POC Glucose 109 H 01/13/23 17:06: POC Glucose 130 H 01/13/23 20:03: Prealbumin 15.1 L 01/13/23 20:14: POC Glucose 235 H 01/13/23 21:25: Urine Urea Nitrogen 525 01/14/23 04:04: POC Glucose 101 01/14/23 06:08: POC Glucose 112 H Micro: Microbiology 01/11/23 11:56 Suprapubic Tap Urine Culture - Final Presumptive C albicans 01/11/23 11:56 Blood Culture (Wb) - Anticubital Right Blood Culture - Preliminary No growth in 48 hours. 01/11/23 11:15 Blood Culture (Wb) - Arm Right Blood Culture - Preliminary No growth in 48 hours. Physical Exam Const no apparent distress Resp normal respiratory effort Cardio regular rate GI soft to palpation and non-tender GI Narrative: Mild distention, no peritoneal signs Assessment & Plan Assessment/Plan (1) Acute distention of stomach: (2) Gastric outlet obstruction: PLAN: Plan This is a 62-year-old, currently institutionalized, male with extensive comorbidities who presents with a rather incidental diagnosis of gastric outlet obstruction since his primary purpose for presentation yesterday was to rule out a urinary tract infection. Status post EGD and dilation of pyloric stricture per GI No plans for any current general surgery intervention continue diet per GI, will sign off call with questions. Dang Perez M.D. Pager: [phone] [facility] [address] [place] [address], [facility], [address] [place] [address] Office: [phone]
--- NOTE | 2023-01-14 07:31 | PN.HOSP_ITS ---
Reason for Visit Reason for Visit: Diagnoses Ulcer of esophagus without bleeding (01/11/23) Acute dilatation of stomach (01/11/23) Adult hypertrophic pyloric stenosis (01/11/23) Gastroparesis (01/11/23) Urinary tract infection, site not specified (01/11/23) Subjective Subjective Sitting up in bed, more interactive today. Feels so-so Objective Data Objective Data Vital Signs: Vital Signs Temp Pulse Resp BP Pulse Ox O2 Del Method O2 Flow Rate 98.6 F 78 18 109/60 92 Room Air 2 01/14/23 03:30 01/14/23 03:30 01/14/23 03:30 01/14/23 03:30 01/14/23 03:30 01/14/23 03:30 01/11/23 16:24 Oxygen Flow Rate (L/min) 2 Oxygen Delivery Method Room Air Weight: 87.8 kg Body Mass Index (BMI) 33.2 Intake & Output: Intake and Output for Last 24 Hours 01/12/23 01/13/23 01/14/23 23:59 23:59 23:59 Intake Total 525 / 555 3352.25 / 3352.25 1580 / 1580 Output Total 3525 / 3525 2100 / 2100 250 / 250 Balance -3000 / -2970 1252.25 / 1252.25 1330 / 1330 Lab / Micro Data 01/13/23 09:15 01/13/23 09:15 Labs: Laboratory Results - last 24 hr 01/13/23 09:15: WBC 15.4 H, RBC 3.99 L, Hgb 10.9 L, Hct 35.5 L, MCV 89.0, MCH 27.3, MCHC 30.7 L D, RDW Std Deviation 52.5 H, RDW Coeff of Janice 16.1 H, Plt Count 714 H, MPV 9.3, Immature Gran % (Auto) 3.400 H, Neut % (Auto) 77.4 H, Lymph % (Auto) 10.8 L, Citrus % (Auto) 6.2, Eos % (Auto) 1.6, Baso % (Auto) 0.6, Absolute Neuts (auto) 11.9 H, Absolute Lymphs (auto) 1.66, Nucleated RBC % 0, Sodium 143, Potassium 3.2 L, Chloride 103, Carbon Dioxide 31.0, Anion Gap 9, BUN 17, Creatinine 0.75, Estim Creat Clear Calc 83.32, Est GFR (MDRD) Af Amer 134, Est GFR (MDRD) Non-Af 111, BUN/Creatinine Ratio 22.6 H, Glucose 123 H, Calcium 8.6, Iron 21 L, TIBC 200 L, Iron Saturation 10.5 L, Vitamin B12 745, Folate 18.90, TSH 0.60, Free T4 1.96 H 01/13/23 10:37: APTT 65.6 H 01/13/23 14:28: POC Glucose 109 H 01/13/23 17:06: POC Glucose 130 H 01/13/23 20:03: Prealbumin 15.1 L 01/13/23 20:14: POC Glucose 235 H 01/13/23 21:25: Urine Urea Nitrogen 525 01/14/23 04:04: POC Glucose 101 01/14/23 06:08: POC Glucose 112 H Micro: Microbiology 01/11/23 11:56 Suprapubic Tap Urine Culture - Final Presumptive C albicans 01/11/23 11:56 Blood Culture (Wb) - Anticubital Right Blood Culture - Preliminary No growth in 48 hours. 01/11/23 11:15 Blood Culture (Wb) - Arm Right Blood Culture - Preliminary No growth in 48 hours. Physical Exam Narrative General: Alert, no acute distress, more interactive HEENT: Atraumatic, normocephalic Eyes: Anicteric, normal conjunctiva, extraocular movements grossly intact Neck: Supple Respiratory: Clear to auscultation bilaterally, normal respiratory effort Cardiovascular: Regular rate and rhythm GI: Soft, nontender, nondistended, no rebound or guarding Extremities: No edema Musculoskeletal: Moving all extremities Neuro: Contracted left upper extremity Skin: No rashes appreciated Psych: Cooperative Assessment & Plan Assessment/Plan (1) Urinary tract infection: PLAN: Plan Patient is a 62 M with history of vascular dementia, CVA, traumatic brain injury, bipolar disorder, COPD not on home O2, type 2 diabetes, DVT, seizure disorder and urinary retention with indwelling suprapubic catheter who presented to [facility] ED from his senior living on 01/11/2023 with concern for UTI. #Sepsis without shock suspected source UTI -WBC 17 on admission with left shift, CT abdomen with findings that could be consistent with cystitis and UA with leuk esterase, white blood cell 10-25 and 1+ bacteria with 10 occult blood. Patient with chronic suprapubic catheter. Urine culture only with yeastlike organism with colony count of 1000-10,000, but cultures pending -Patient is on Zosyn as ED physician was able to access previous urine culture sensitivities and it was sensitive to Zosyn. -It appears he was on Merrem and linezolid with stop dates of 01/16 and 01/15 respectively, do not necessarily see need for MRSA coverage, continue Zosyn -01/14: Was able to locate patient's previous culture results which did show sensitivity to Zosyn however patient did also grow MRSA so MRSA coverage was readded and he was supposed to be on linezolid through 01/15 and had been on Merrem through 01/16 but given he was already on these it is unclear if presentation was indeed due to UTI or not, blood cultures no growth to date, suprapubic urine culture with 1000 and 10,000 colonies of presumptive Radha albicans. On the CT on admission there was bladder thickening consistent with cystitis however there is also thickening of sigmoid colon and rectum concerning for proctocolitis which could have been the source. Patient has overall improved with white count downtrending #Severe abdominal distention There is some concern for at least a partial small bowel obstruction given patient's stomach distention with seeming transitional point at duodenum. ED doc spoke with patient's sister; patient has never had abdominal surgery but has had issues with ileus and obstruction in the past. Has history of removal of stool impaction under anesthesia back in 2013. -Surgery consulted, appreciate recs. Planning to place NG tube for decompression and monitor. Monitor if patient is passing gas and/or having bowel movements. -01/13: Surgery and GI on board, patient continues to have NG tube, n.p.o. patient for EGD with possible dilation today -01/14: Patient underwent DD on 01/13 with grade C erosive esophagitis with bleeding, nonbleeding gastric ulcers, gastritis as well as gastric stenosis at the pylorus which was dilated. Is recommended that patient be on PPI twice daily for the remainder of his life. Continue PPI twice daily at this time. No plans for surgery at this time. Patient also on azithromycin and Reglan #History gastric ulcers -PPI changed to IV given patient unable to take p.o. at this time -Follows with GI in outpatient basis -GI also on board -01/14: PPI twice daily, status post EGD with dilation and treatment, additionally sucralfate 1 g p.o. 4 times daily #Hx vascular dementia, CVA, TBI ? Unable to obtain much history from patient as he is essentially nonverbal. Patient lives in nursing facility, will plan for back to facility on discharge. -Continue supportive care -CVA seems to been secondary to thrombosis per SNF med list -Patient's Eliquis presently held -01/14: Appreciate GI input on timing of Eliquis resumption, advised no aspirin or NSAIDs for 8 weeks #History of seizure disorder and bipolar d/o ? Unable to give home p.o. carbamazepine given NG tube at this time. We will start IV Keppra 500 mg twice daily. Restart home medication as able. -Unclear nuances of patient's seizure disorder and if carbamazepine is more for behavioral. If it is indeed more behavioral Keppra can exacerbate this, will attempt to clarify as able. Continue Neurontin as patient is able, presently n.p.o. since has not been given -01/14: Now back on gabapentin, will switch Keppra to Tegretol as well #Zut-[id number]-[id number] type 2 diabetes - Medications of metformin 1000 mg twice daily, gabapentin for 100 mg every 6 hours. Metformin held, sliding scale insulin while inpatient as needed. Continue home gabapentin once patient tolerating p.o. -01/14: Continue sliding scale, patient cleared for full liquid diet #Hypertension ? On home ramipril 2.5 mg at night, furosemide 20 mg daily. Holding these medications for now, restart as needed. #History of DVT ? Had left lower extremity DVT April 2021, on home Eliquis. Presently on hold in the event patient needs surgery/intervention -01/14: Home Eliquis presently held #Normocytic anemia -On presentation hemoglobin 10.1, previously in July 2021 was 14.4, repeat labs -We will also obtain iron panel, B12, folate -01/14: We will give IV iron DVT prophylaxis: Eliquis on hold, scds ordered CODE STATUS: Full code, unverified Expected disposition: Back to nursing facility, TBD Total clinical time spent by myself addressing the patient's medical issues, reviewing all the data, and collaborating with patient's care team: 40 minutes. Charges/Coding Visit Charges Inpatient E&M: 42367 Subs Hosp L2
[2023-01-14] MEDS: carBAMazepine 200 MG Tablet PO (09:09)
[2023-01-14] MEDS: Lidocaine 5% Patch 1 PATCH TOPICAL (09:09)
[2023-01-14] MEDS: Menthol/Lanolin/Calamine/Znox 113 GM Tube 1 APPLIC TOPICAL ×2 (09:09→22:39)
[2023-01-14] MEDS: Cilostazol 50 MG Tablet 100 MG PO ×2 (09:13→20:50)
[2023-01-14] MEDS: Senna Tablet 2 TABLET PO (09:14)
[2023-01-14] MEDS: Bisacodyl 5 MG Tablet PO (09:14)
[2023-01-14 09:25] VITALS: BP 128/66; PULSE 87; RESP 18; TEMP 36.1; O2SAT 92
--- NOTE | 2023-01-14 10:06 | EX.PCM.PN.GI ---
Subjective Subjective Patient underwent an endoscopy yesterday for gastric outlet obstruction and nausea and vomiting status post NG tube placement. He was discovered to have multiple gastric ulcers with a pyloric channel ulcer that was causing stricturing of the distal stomach into the pyloric channel and subsequent gastric outlet obstruction. NG tube was removed and the area was biopsied and dilated. He is tolerating a diet at this time. Objective Data Objective Data Vital Signs: Vital Signs Temp Pulse Resp BP Pulse Ox O2 Del Method O2 Flow Rate 96.9 F L 87 18 128/66 H 92 Room Air 2 01/14/23 09:25 01/14/23 09:25 01/14/23 09:25 01/14/23 09:25 01/14/23 09:25 01/14/23 09:25 01/11/23 16:24 Oxygen Flow Rate (L/min) 2 Oxygen Delivery Method Room Air Weight: 193 lb 9.054 oz Body Mass Index (BMI) 33.2 Intake & Output: Intake and Output for Last 24 Hours 01/12/23 01/13/23 01/14/23 23:59 23:59 23:59 Intake Total 525 / 555 3352.25 / 3352.25 1580 / 1580 Output Total 3525 / 3525 2100 / 2100 250 / 250 Balance -3000 / -2970 1252.25 / 1252.25 1330 / 1330 Lab / Micro Data 01/13/23 09:15 01/13/23 09:15 Labs: Laboratory Results - last 24 hr 01/13/23 09:15: Iron 21 L, TIBC 200 L, Iron Saturation 10.5 L, Folate 18.90, TSH 0.60, Free T4 1.96 H 01/13/23 10:37: APTT 65.6 H 01/13/23 14:28: POC Glucose 109 H 01/13/23 17:06: POC Glucose 130 H 01/13/23 20:03: Prealbumin 15.1 L 01/13/23 20:14: POC Glucose 235 H 01/13/23 21:25: Urine Urea Nitrogen 525 01/14/23 04:04: POC Glucose 101 01/14/23 06:08: POC Glucose 112 H Micro: Microbiology 01/11/23 11:56 Suprapubic Tap Urine Culture - Final Presumptive C albicans 01/11/23 11:56 Blood Culture (Wb) - Anticubital Right Blood Culture - Preliminary No growth in 48 hours. 01/11/23 11:15 Blood Culture (Wb) - Arm Right Blood Culture - Preliminary No growth in 48 hours. Physical Exam Const no apparent distress Resp normal respiratory effort Cardio regular rate GI soft to palpation and non-tender GI Narrative: Mild distention, no peritoneal signs Assessment & Plan Assessment/Plan (1) Gastric outlet obstruction: (2) Acute distention of stomach: (3) GERD (gastroesophageal reflux disease): QUALIFIERS: Esophagitis presence: with esophagitis Esophagitis bleeding: without hemorrhage Qualified Code(s): K21.00 - Gastro-esophageal reflux disease with esophagitis, without bleeding (4) Gastric ulcer: QUALIFIERS: Gastric ulcer chronicity: acute Gastric ulcer complication status: with hemorrhage Qualified Code(s): K25.0 - Acute gastric ulcer with hemorrhage PLAN: Plan 2 M who presents to the ED from senior living with abdominal distention. He has a traumatic brain injury most history is taken from patient's chart in his sister. I originally got to know Chacorta mackay with this clinic 06.03.21 with symptoms of nausea and vomiting. He was previously seen by [facility] 04.28.21 for evaluation of vomiting with concern for gastric outlet obstruction, abnormal CT of abd/pel, elevated LFT; Started on PPI BID; He underwent EGD and was discovered to have multiple reasons for gastric outlet obstruction. I had a long talk with his sister and explained that I do not think he should be on blood thinners at this time due to multiple upper GI bleeds and previous gastric outlet obstruction from peptic ulcer disease. Biopsies were taken for H. pylori. He has been on medical therapy including azithromycin and Reglan therapy to promote gastric emptying. Recommend to stay away from fatty foods at this time. Continue PPI therapy as previously ordered. Charges/Coding Visit Charges Inpatient E&M: 82686 Subs Hosp L3
[2023-01-14] MEDS: Sodium Ferric Gluconat 125 MG in 0.9% Normal Saline 100 ML 110 MG IV (10:42)
[2023-01-14] MEDS: Insulin Lispro 100 UNIT/ML INSULN.PEN SC ×3 (11:22→20:48)
[2023-01-14] MEDS: 0.9% Saline Lock 10 ML Syringe IV ×2 (11:25→17:06)
[2023-01-14 11:55] LABS: Bedside Glucose 216 mg/dL (74-106)
[2023-01-14] MEDS: Sucralfate 1 GM Tablet PO ×2 (15:17→20:50)
[2023-01-14 15:18] VITALS: BP 127/74; PULSE 89; RESP 18; TEMP 36.9; O2SAT 92
[2023-01-14 15:29] LABS: Absolute Lymphocyte Count 1.44 X10^3/uL (0.83-4.51); Absolute Neutrophil Count 7.4 X10^3/uL (2.0-7.7); Basophil# 0.07 X10^3/uL; Basophil% 0.7 % (0-1); Eosinophil# 0.34 X10^3/uL; Eosinophils% 3.4 % (0-5); Hematocrit 27.3 % (40-54); Hemoglobin 8.2 g/dL (13.0-16.5); Lymphocyte # 1.44 X10^3/ul (0.83-4.51); Lymphocyte % 14.3 % (19-41); Mean Corpuscular Hgb 27.4 pg (27.0-32.0); Mean Corpuscular Volume 91.3 fL (80-94); Mean Platelet Vol. 9.3 fl (6.2-12.0); Monocyte# 0.73 X10^3/uL; Monocyte% 7.2 % (0-10); NRBC Flagged by Analyzer 0 % (0-5); Neutrophil # 7.43 X10^3/uL (2.7-7.7); Neutrophil % 73.7 % (47-70); Platelet Count 540 K/mm3 (150-450); RBC Distribution Width CV 15.9 % (11.6-14.6); Red Blood Count 2.99 M/mm3 (4.6-6.2); White Blood Count 10.1 K/mm3 (4.4-11.0)
[2023-01-14 16:03] LABS: Anion Gap 4 (5-15); BUN 10 mg/dL (7-18); BUN/Creat Ratio 12.3 RATIO (10-20); Calcium,Total 7.1 mg/dL (8.5-10.1); Chloride 106 mmol/L (98-107); Creatinine, Serum 0.81 mg/dL (0.70-1.30); EST Glomerular Filtration Rate 102 mL/min (>60); Est Glom Filt Rate - Afr Amer 123 mL/min (>60); Estimated Creatinine Clearance 77.15 ml/min; Glucose 180 mg/dL (74-106); Potassium 3.4 mmol/L (3.5-5.1); Sodium Level 139 mmol/L (136-145)
[2023-01-14 16:56] LABS: Bedside Glucose 165 mg/dL (74-106)
[2023-01-14] MEDS: Potassium Chloride 10mEq/100mL 10 MEQ/100 ML IV.SOLN. 100 MEQ IV BOLUS ×2 (17:20→18:50)
[2023-01-14 20:42] VITALS: BP 106/52; PULSE 81; RESP 18; TEMP 37.7; O2SAT 92
[2023-01-14] MEDS: carBAMazepine 200 MG Tablet 100 MG PO (20:49)
[2023-01-14] MEDS: Atorvastatin Calcium 20 MG Tablet PO (20:50)
[2023-01-14 22:13] LABS: Bedside Glucose 195 mg/dL (74-106)
[2023-01-15 03:35] VITALS: BP 109/54; PULSE 88; RESP 18; TEMP 37.4; O2SAT 95
[2023-01-15] MEDS: Gabapentin 300 MG Capsule PO ×4 (05:12→22:48)
[2023-01-15] MEDS: Metoclopramide 10 MG/2 ML Vial 5 MG IV ×4 (05:12→22:46)
[2023-01-15] MEDS: Gabapentin 100 MG Capsule PO ×4 (05:12→22:48)
[2023-01-15 05:14] LABS: Absolute Lymphocyte Count 1.58 X10^3/uL (0.83-4.51); Absolute Neutrophil Count 6.6 X10^3/uL (2.0-7.7); Basophil# 0.08 X10^3/uL; Basophil% 0.8 % (0-1); Eosinophil# 0.55 X10^3/uL; Eosinophils% 5.7 % (0-5); Hematocrit 28.3 % (40-54); Hemoglobin 8.8 g/dL (13.0-16.5); Lymphocyte # 1.58 X10^3/ul (0.83-4.51); Lymphocyte % 16.2 % (19-41); Mean Corp Hgb Conc 31.1 g/dL (32-36); Mean Corpuscular Hgb 28.1 pg (27.0-32.0); Mean Corpuscular Volume 90.4 fL (80-94); Mean Platelet Vol. 9.3 fl (6.2-12.0); Monocyte% 8.2 % (0-10); NRBC Flagged by Analyzer 0 % (0-5); Neutrophil # 6.63 X10^3/uL (2.7-7.7); Neutrophil % 68.2 % (47-70); Platelet Count 520 K/mm3 (150-450); RBC Distribution Width CV 15.8 % (11.6-14.6); RBC Distribution Width SD 52.4 fl (35.1-43.9); Red Blood Count 3.13 M/mm3 (4.6-6.2); White Blood Count 9.7 K/mm3 (4.4-11.0)
[2023-01-15 05:44] LABS: Anion Gap 6 (5-15); BUN 6 mg/dL (7-18); BUN/Creat Ratio 8.6 RATIO (10-20); Calcium,Total 7.4 mg/dL (8.5-10.1); Chloride 108 mmol/L (98-107); EST Glomerular Filtration Rate 121 mL/min (>60); Est Glom Filt Rate - Afr Amer 146 mL/min (>60); Estimated Creatinine Clearance 89.27 ml/min; Glucose 107 mg/dL (74-106); Potassium 3.4 mmol/L (3.5-5.1); Sodium Level 143 mmol/L (136-145)
--- NOTE | 2023-01-15 05:54 | PCM.RX.CS ---
Consult Antibiotic Management Pharmacy has been consulted to manage selected antiobiotic: Vancomycin Type of Intervention Type of Consult: Follow-up Labs Labs: Sodium 143 mmol/L (136-145) 01/15/23 05:00 Potassium 3.4 mmol/L (3.5-5.1) L 01/15/23 05:00 Chloride 108 mmol/L (98-107) H 01/15/23 05:00 Carbon Dioxide 29.0 mmol/L (21.0-32.0) 01/15/23 05:00 Anion Gap 6 (5-15) 01/15/23 05:00 BUN 6 mg/dL (7-18) L 01/15/23 05:00 Creatinine 0.70 mg/dL (0.70-1.30) 01/15/23 05:00 Est GFR (MDRD) Af Amer 146 mL/min (>60) 01/15/23 05:00 Est GFR (MDRD) Non-Af 121 mL/min (>60) 01/15/23 05:00 BUN/Creatinine Ratio 8.6 RATIO (10-20) L 01/15/23 05:00 Glucose 107 mg/dL (74-106) H 01/15/23 05:00 Vancomycin Trough 23.0 ug/mL (5.0-15.0) H 01/15/23 05:00 Microbiology Microbiology: Microbiology 01/11/23 11:56 Suprapubic Tap Urine Culture - Final Presumptive C albicans 01/11/23 11:56 Blood Culture (Wb) - Anticubital Right Blood Culture - Preliminary No growth in 48 hours. 01/11/23 11:15 Blood Culture (Wb) - Arm Right Blood Culture - Preliminary No growth in 48 hours. Pharmacy Plan for Drug Dosing Pharmacy Plan for Drug Dosing: Pharmacy Service will continue to monitor and adjust dosing as required. TROUGH 23. HOLD NEXT DOSE AND DRAW RANDOM LEVEL IN 24 HOURS. Follow-Up Labs Follow-Up Labs: Trough: Vancomycin Date/Time Labs Ordered Labs to be done on [date and time ordered]: 01/16 @ 4942
[2023-01-15] MEDS: Sucralfate 1 GM Tablet PO ×4 (06:34→20:42)
[2023-01-15 07:02] LABS: Bedside Glucose 110 mg/dL (74-106)
[2023-01-15 07:02] LABS: Bedside Glucose 96 mg/dL (74-106)
--- NOTE | 2023-01-15 08:27 | PCM.PN.HOSP ---
Reason for Visit Reason for Visit: Diagnoses Gastro-esophageal reflux disease with esophagitis, without bleeding (01/11/23) Ulcer of esophagus without bleeding (01/11/23) Acute gastric ulcer with hemorrhage (01/11/23) Acute dilatation of stomach (01/11/23) Adult hypertrophic pyloric stenosis (01/11/23) Gastroparesis (01/11/23) Urinary tract infection, site not specified (01/11/23) Subjective Subjective Patient feeling a little bit better, had no acute complaints at time of exam Objective Data Objective Data Vital Signs: Vital Signs Temp Pulse Resp BP Pulse Ox O2 Del Method O2 Flow Rate 99.3 F H 88 18 109/54 L 95 Room Air 2 01/15/23 03:35 01/15/23 03:35 01/15/23 03:35 01/15/23 03:35 01/15/23 03:35 01/15/23 03:35 01/11/23 16:24 Oxygen Flow Rate (L/min) 2 Oxygen Delivery Method Room Air Weight: 87.8 kg Body Mass Index (BMI) 33.2 Intake & Output: Intake and Output for Last 24 Hours 01/13/23 01/14/23 01/15/23 23:59 23:59 23:59 Intake Total 3352.25 / 3352.25 4710.00 / 4710.00 404.17 / 404.17 Output Total 2100 / 2100 2125 / 2125 1300 / 1300 Balance 1252.25 / 1252.25 2585.00 / 2585.00 -895.83 / -895.83 Lab / Micro Data 01/15/23 05:00 01/15/23 05:00 Labs: Laboratory Results - last 24 hr 01/14/23 11:15: POC Glucose 216 H 01/14/23 15:10: WBC 10.1, RBC 2.99 L, Hgb 8.2 L, Hct 27.3 L, MCV 91.3, MCH 27.4, MCHC 30.0 L, RDW Std Deviation 52.0 H, RDW Coeff of Janice 15.9 H, Plt Count 540 H, MPV 9.3, Immature Gran % (Auto) 0.700, Neut % (Auto) 73.7 H, Lymph % (Auto) 14.3 L, [place] % (Auto) 7.2, Eos % (Auto) 3.4, Baso % (Auto) 0.7, Absolute Neuts (auto) 7.4, Absolute Lymphs (auto) 1.44, Nucleated RBC % 0, Sodium 139, Potassium 3.4 L, Chloride 106, Carbon Dioxide 29.0, Anion Gap 4 L, BUN 10, Creatinine 0.81, Estim Creat Clear Calc 77.15, Est GFR (MDRD) Af Amer 123, Est GFR (MDRD) Non-Af 102, BUN/Creatinine Ratio 12.3, Glucose 180 H, Calcium 7.1 L 01/14/23 15:57: POC Glucose 165 H 01/14/23 20:47: POC Glucose 195 H 01/15/23 03:41: POC Glucose 110 H 01/15/23 05:00: WBC 9.7, RBC 3.13 L, Hgb 8.8 L, Hct 28.3 L, MCV 90.4, MCH 28.1, MCHC 31.1 L, RDW Std Deviation 52.4 H, RDW Coeff of Janice 15.8 H, Plt Count 520 H, MPV 9.3, Immature Gran % (Auto) 0.900, Neut % (Auto) 68.2, Lymph % (Auto) 16.2 L, [place] % (Auto) 8.2, Eos % (Auto) 5.7 H, Baso % (Auto) 0.8, Absolute Neuts (auto) 6.6, Absolute Lymphs (auto) 1.58, Nucleated RBC % 0, Sodium 143, Potassium 3.4 L, Chloride 108 H, Carbon Dioxide 29.0, Anion Gap 6, BUN 6 L, Creatinine 0.70, Estim Creat Clear Calc 89.27, Est GFR (MDRD) Af Amer 146, Est GFR (MDRD) Non-Af 121, BUN/Creatinine Ratio 8.6 L, Glucose 107 H, Calcium 7.4 L, Vancomycin Trough 23.0 H 01/15/23 06:35: POC Glucose 96 Micro: Microbiology 01/11/23 11:56 Suprapubic Tap Urine Culture - Final Presumptive C albicans 01/11/23 11:56 Blood Culture (Wb) - Anticubital Right Blood Culture - Preliminary No growth in 48 hours. 01/11/23 11:15 Blood Culture (Wb) - Arm Right Blood Culture - Preliminary No growth in 48 hours. Physical Exam Narrative General: Alert, no acute distress, more interactive HEENT: Atraumatic, normocephalic Eyes: Anicteric, normal conjunctiva, extraocular movements grossly intact Neck: Supple Respiratory: Clear to auscultation bilaterally, normal respiratory effort Cardiovascular: Regular rate and rhythm GI: Slightly firm without tenderness, rebound, or guarding Extremities: No edema Musculoskeletal: Moving all extremities Neuro: Contracted left upper extremity Skin: No rashes appreciated Psych: Cooperative Assessment & Plan Assessment/Plan (1) Urinary tract infection: PLAN: Plan Patient is a 62 M with history of vascular dementia, CVA, traumatic brain injury, bipolar disorder, COPD not on home O2, type 2 diabetes, DVT, seizure disorder and urinary retention with indwelling suprapubic catheter who [facility] with concern for UTI. #Sepsis without shock suspected source UTI -WBC 17 on admission with left shift, CT abdomen with findings that could be consistent with cystitis and UA with leuk esterase, white blood cell 10-25 and 1+ bacteria with 10 occult blood. Patient with chronic suprapubic catheter. Urine culture only with yeastlike organism with colony count of 1000-10,000, but cultures pending -Patient is on Zosyn as ED physician was able to access previous urine culture sensitivities and it was sensitive to Zosyn. -It appears he was on Merrem and linezolid with stop dates of 01/16 and 01/15 respectively, do not necessarily see need for MRSA coverage, continue Zosyn -01/14: Was able to locate patient's previous culture results which did show sensitivity to Zosyn however patient did also grow MRSA so MRSA coverage was readded and he was supposed to be on linezolid through 01/15 and had been on Merrem through 01/16 but given he was already on these it is unclear if presentation was indeed due to UTI or not, blood cultures no growth to date, suprapubic urine culture with 1000 and 10,000 colonies of presumptive Radha albicans. On the CT on admission there was bladder thickening consistent with cystitis however there is also thickening of sigmoid colon and rectum concerning for proctocolitis which could have been the source. Patient has overall improved with white count downtrending -01/15: Patient on vancomycin and Zosyn, he had been on linezolid and Merrem at [facility] facility for UTI but came in with a sepsis-like picture and CT consistent with cystitis +/- proctocolitis, has improved on present regimen. ID consulted for optimal duration of antibiotics and possible need for IV antibiotics #Severe abdominal distention?pyloric stenosis status post dilation There is some concern for at least a partial small bowel obstruction given patient's stomach distention with seeming transitional point at duodenum. ED doc spoke with patient's sister; patient has never had abdominal surgery but has had issues with ileus and obstruction in the past. Has history of removal of stool impaction under anesthesia back in 2013. -Surgery consulted, appreciate recs. Planning to place NG tube for decompression and monitor. Monitor if patient is passing gas and/or having bowel movements. -01/13: Surgery and GI on board, patient continues to have NG tube, n.p.o. patient for EGD with possible dilation today -01/14: Patient underwent DD on 01/13 with grade C erosive esophagitis with bleeding, nonbleeding gastric ulcers, gastritis as well as gastric stenosis at the pylorus which was dilated. Is recommended that patient be on PPI twice daily for the remainder of his life. Continue PPI twice daily at this time. No plans for surgery at this time. Patient also on azithromycin and Reglan -01/15: Discussed with GI, when patient is discharged she will go on azithromycin and Reglan along with Carafate and PPI twice daily, it was advised that his Eliquis is not resumed #History gastric ulcers -PPI changed to IV given patient unable to take p.o. at this time -Follows with GI in outpatient basis -GI also on board -01/14: PPI twice daily, status post EGD with dilation and treatment, additionally sucralfate 1 g p.o. 4 times daily -01/15: Hemoglobin stabilized, continue sucralfate and PPI twice daily #Hx vascular dementia, CVA, TBI ? Unable to obtain much history from patient as he is essentially nonverbal. Patient lives in nursing facility, will plan for back to facility on discharge. -Continue supportive care -CVA seems to been secondary to thrombosis per SNF med list -Patient's Eliquis presently held -01/14: Appreciate GI input on timing of Eliquis resumption, advised no aspirin or NSAIDs for 8 weeks -01/15: It was advised not to resume Eliquis at this time #History of seizure disorder and bipolar d/o ? Unable to give home p.o. carbamazepine given NG tube at this time. We will start IV Keppra 500 mg twice daily. Restart home medication as able. -Unclear nuances of patient's seizure disorder and if carbamazepine is more for behavioral. If it is indeed more behavioral Keppra can exacerbate this, will attempt to clarify as able. Continue Neurontin as patient is able, presently n.p.o. since has not been given -01/14: Now back on gabapentin, will switch Keppra to Tegretol as well #Eib-iibhtxf-[id number] type 2 diabetes - Medications of metformin 1000 mg twice daily, gabapentin for 100 mg every 6 hours. Metformin held, sliding scale insulin while inpatient as needed. Continue home gabapentin once patient tolerating p.o. -01/14: Continue sliding scale, patient cleared for full liquid diet #Hypertension ? On home ramipril 2.5 mg at night, furosemide 20 mg daily. Holding these medications for now, restart as needed. #History of DVT ? Had left lower extremity DVT April 2021, on home Eliquis. Presently on hold in the event patient needs surgery/intervention -01/14: Home Eliquis presently held -01/15: It is advised Eliquis not be resumed, will need to continue weighing risks and benefits over time #Normocytic anemia -On presentation hemoglobin 10.1, previously in July 2021 was 14.4, repeat labs -We will also obtain iron panel, B12, folate -01/14: We will give IV iron -01/15: Patient received IV iron, hemoglobin stable at present DVT prophylaxis: scds ordered CODE STATUS: Full code, unverified Expected disposition: Back to nursing facility, likely tomorrow after final abx plan Total clinical time spent by myself addressing the patient's medical issues, reviewing all the data, and collaborating with patient's care team: 40 minutes. Charges/Coding Visit Charges Inpatient E&M: 62472 Subs Hosp L2
[2023-01-15] MEDS: Potassium Chloride 10mEq/100mL 10 MEQ/100 ML IV.SOLN. 100 MEQ IV BOLUS ×2 (09:17→10:41)
[2023-01-15] MEDS: Menthol/Lanolin/Calamine/Znox 113 GM Tube 1 APPLIC TOPICAL ×2 (09:21→20:38)
[2023-01-15] MEDS: carBAMazepine 200 MG Tablet PO (09:23)
[2023-01-15] MEDS: Bisacodyl 5 MG Tablet PO (09:24)
[2023-01-15] MEDS: Senna Tablet 2 TABLET PO (09:24)
[2023-01-15] MEDS: Cilostazol 50 MG Tablet 100 MG PO ×2 (09:25→20:41)
[2023-01-15 09:35] VITALS: BP 121/82; PULSE 86; RESP 18; TEMP 36.5; O2SAT 95
--- NOTE | 2023-01-15 09:59 | EX.PCM.PN.GI ---
Subjective Subjective Patient tolerating a diet without any nausea vomiting. Denies any bloating, belching or indigestion. Objective Data Objective Data Vital Signs: Vital Signs Temp Pulse Resp BP Pulse Ox O2 Del Method O2 Flow Rate 97.7 F L 86 18 121/82 H 95 Room Air 2 01/15/23 09:35 01/15/23 09:35 01/15/23 09:35 01/15/23 09:35 01/15/23 09:35 01/15/23 09:35 01/11/23 16:24 Oxygen Flow Rate (L/min) 2 Oxygen Delivery Method Room Air Weight: 193 lb 9.054 oz Body Mass Index (BMI) 33.2 Intake & Output: Intake and Output for Last 24 Hours 01/13/23 01/14/23 01/15/23 23:59 23:59 23:59 Intake Total 3352.25 / 3352.25 4710.00 / 4710.00 404.17 / 404.17 Output Total 2100 / 2100 2125 / 2125 1300 / 1300 Balance 1252.25 / 1252.25 2585.00 / 2585.00 -895.83 / -895.83 Lab / Micro Data 01/15/23 05:00 01/15/23 05:00 Labs: Laboratory Results - last 24 hr 01/14/23 11:15: POC Glucose 216 H 01/14/23 15:10: WBC 10.1, RBC 2.99 L, Hgb 8.2 L, Hct 27.3 L, MCV 91.3, MCH 27.4, MCHC 30.0 L, RDW Std Deviation 52.0 H, RDW Coeff of Janice 15.9 H, Plt Count 540 H, MPV 9.3, Immature Gran % (Auto) 0.700, Neut % (Auto) 73.7 H, Lymph % (Auto) 14.3 L, [place] % (Auto) 7.2, Eos % (Auto) 3.4, Baso % (Auto) 0.7, Absolute Neuts (auto) 7.4, Absolute Lymphs (auto) 1.44, Nucleated RBC % 0, Sodium 139, Potassium 3.4 L, Chloride 106, Carbon Dioxide 29.0, Anion Gap 4 L, BUN 10, Creatinine 0.81, Estim Creat Clear Calc 77.15, Est GFR (MDRD) Af Amer 123, Est GFR (MDRD) Non-Af 102, BUN/Creatinine Ratio 12.3, Glucose 180 H, Calcium 7.1 L 01/14/23 15:57: POC Glucose 165 H 01/14/23 20:47: POC Glucose 195 H 01/15/23 03:41: POC Glucose 110 H 01/15/23 05:00: WBC 9.7, RBC 3.13 L, Hgb 8.8 L, Hct 28.3 L, MCV 90.4, MCH 28.1, MCHC 31.1 L, RDW Std Deviation 52.4 H, RDW Coeff of Janice 15.8 H, Plt Count 520 H, MPV 9.3, Immature Gran % (Auto) 0.900, Neut % (Auto) 68.2, Lymph % (Auto) 16.2 L, [place] % (Auto) 8.2, Eos % (Auto) 5.7 H, Baso % (Auto) 0.8, Absolute Neuts (auto) 6.6, Absolute Lymphs (auto) 1.58, Nucleated RBC % 0, Sodium 143, Potassium 3.4 L, Chloride 108 H, Carbon Dioxide 29.0, Anion Gap 6, BUN 6 L, Creatinine 0.70, Estim Creat Clear Calc 89.27, Est GFR (MDRD) Af Amer 146, Est GFR (MDRD) Non-Af 121, BUN/Creatinine Ratio 8.6 L, Glucose 107 H, Calcium 7.4 L, Vancomycin Trough 23.0 H 01/15/23 06:35: POC Glucose 96 Micro: Microbiology 01/11/23 11:56 Suprapubic Tap Urine Culture - Final Presumptive C albicans 01/11/23 11:56 Blood Culture (Wb) - Anticubital Right Blood Culture - Preliminary No growth in 48 hours. 01/11/23 11:15 Blood Culture (Wb) - Arm Right Blood Culture - Preliminary No growth in 48 hours. Physical Exam Const no apparent distress Resp normal respiratory effort Cardio regular rate GI soft to palpation and non-tender GI Narrative: Mild distention, no peritoneal signs Assessment & Plan Assessment/Plan (1) Gastric outlet obstruction: (2) Acute distention of stomach: (3) GERD (gastroesophageal reflux disease): QUALIFIERS: Esophagitis presence: with esophagitis Esophagitis bleeding: without hemorrhage Qualified Code(s): K21.00 - Gastro-esophageal reflux disease with esophagitis, without bleeding (4) Gastric ulcer: QUALIFIERS: Gastric ulcer chronicity: acute Gastric ulcer complication status: with hemorrhage Qualified Code(s): K25.0 - Acute gastric ulcer with hemorrhage PLAN: Plan 2 M who presents to the ED from skilled nursing with abdominal distention. He has a traumatic brain injury most history is taken from patient's chart in his sister. I originally got to know [facility] established with this clinic 06.03.21 with symptoms of nausea and vomiting. He was previously seen by [facility] 04.28.21 for evaluation of vomiting with concern for gastric outlet obstruction, abnormal CT of abd/pel, elevated LFT; Started on PPI BID; He underwent EGD and was discovered to have multiple reasons for gastric outlet obstruction. I had a long talk with his sister and explained that I do not think he should be on blood thinners at this time due to multiple upper GI bleeds and previous gastric outlet obstruction from peptic ulcer disease. Biopsies were taken for H. pylori. He has been on medical therapy including azithromycin and Reglan therapy to promote gastric emptying. Recommend to stay away from fatty foods at this time. Continue PPI therapy as previously ordered. 01/15: Patient has no well from a GI standpoint. He will need a more bowel regimen to help his lack of movement gastroparesis underlying neuro logic deficits that affect his GI transit. Continue azithromycin and continue Reglan therapy. Charges/Coding Visit Charges Inpatient E&M: 49390 Subs Hosp L3
[2023-01-15] MEDS: Polyethylene Glycol 3350 17 GM PACKET PO ×2 (10:44→20:42)
[2023-01-15 13:35] LABS: Bedside Glucose 121 mg/dL (74-106)
[2023-01-15 14:09] VITALS: BP 120/62; PULSE 97; RESP 16; TEMP 36.5; O2SAT 96
--- NOTE | 2023-01-15 14:23 | NURSING ---
Pt has been sitting in chair since 1130 today. Tolerating thus far. Pt was a max assist of 3 people. Will use shahnaz lift to get him back into bed.
[2023-01-15] MEDS: Insulin Lispro 100 UNIT/ML INSULN.PEN SC (16:45)
[2023-01-15 17:36] LABS: Bedside Glucose 201 mg/dL (74-106)
[2023-01-15 20:33] VITALS: BP 113/91; PULSE 90; RESP 18; TEMP 37.2; O2SAT 94
[2023-01-15] MEDS: Atorvastatin Calcium 20 MG Tablet PO (20:41)
[2023-01-15] MEDS: carBAMazepine 200 MG Tablet 100 MG PO (20:41)
[2023-01-15] MEDS: 0.9% Saline Lock 10 ML Syringe IV (22:47)
[2023-01-15 23:32] LABS: Bedside Glucose 150 mg/dL (74-106)
[2023-01-16] MEDS: Acetaminophen 325 MG Tablet 650 MG PO (02:21)
[2023-01-16 02:22] VITALS: BP 116/58; PULSE 90; RESP 18; TEMP 37.1; O2SAT 97
[2023-01-16 04:42] LABS: Absolute Lymphocyte Count 1.76 X10^3/uL (0.83-4.51); Absolute Neutrophil Count 7.2 X10^3/uL (2.0-7.7); Basophil# 0.08 X10^3/uL; Basophil% 0.8 % (0-1); Eosinophil# 0.74 X10^3/uL; Eosinophils% 7.1 % (0-5); Hematocrit 26.7 % (40-54); Hemoglobin 8.6 g/dL (13.0-16.5); Lymphocyte # 1.76 X10^3/ul (0.83-4.51); Lymphocyte % 16.8 % (19-41); Mean Corp Hgb Conc 32.2 g/dL (32-36); Mean Corpuscular Hgb 28.7 pg (27.0-32.0); Mean Platelet Vol. 9.5 fl (6.2-12.0); Monocyte# 0.62 X10^3/uL; Monocyte% 5.9 % (0-10); NRBC Flagged by Analyzer 0 % (0-5); Neutrophil # 7.18 X10^3/uL (2.7-7.7); Neutrophil % 68.7 % (47-70); Platelet Count 495 K/mm3 (150-450); RBC Distribution Width CV 15.6 % (11.6-14.6); RBC Distribution Width SD 50.5 fl (35.1-43.9); White Blood Count 10.5 K/mm3 (4.4-11.0)
[2023-01-16] MEDS: Gabapentin 300 MG Capsule PO ×4 (05:04→23:45)
[2023-01-16] MEDS: Gabapentin 100 MG Capsule PO ×4 (05:04→23:45)
[2023-01-16] MEDS: 0.9% Saline Lock 10 ML Syringe IV (05:06)
[2023-01-16] MEDS: Metoclopramide 10 MG/2 ML Vial 5 MG IV ×2 (05:06→11:39)
[2023-01-16] MEDS: Sucralfate 1 GM Tablet PO ×4 (05:10→22:07)
[2023-01-16 05:14] LABS: Vancomycin, Random Level 15.7 ug/mL (0.0-15.0)
[2023-01-16 05:19] LABS: Anion Gap 5 (5-15); BUN 5 mg/dL (7-18); BUN/Creat Ratio 7.6 RATIO (10-20); Calcium,Total 7.5 mg/dL (8.5-10.1); Chloride 108 mmol/L (98-107); Creatinine, Serum 0.66 mg/dL (0.70-1.30); EST Glomerular Filtration Rate 130 mL/min (>60); Est Glom Filt Rate - Afr Amer 157 mL/min (>60); Estimated Creatinine Clearance 94.68 ml/min; Glucose 138 mg/dL (74-106); Potassium 3.5 mmol/L (3.5-5.1); Sodium Level 139 mmol/L (136-145)
--- NOTE | 2023-01-16 06:16 | PCM.RX.CS ---
Consult Antibiotic Management Pharmacy has been consulted to manage selected antiobiotic: Vancomycin Type of Intervention Type of Consult: Follow-up Labs Labs: Sodium 139 mmol/L (136-145) 01/16/23 04:31 Potassium 3.5 mmol/L (3.5-5.1) 01/16/23 04:31 Chloride 108 mmol/L (98-107) H 01/16/23 04:31 Carbon Dioxide 26.0 mmol/L (21.0-32.0) 01/16/23 04:31 Anion Gap 5 (5-15) 01/16/23 04:31 BUN 5 mg/dL (7-18) L 01/16/23 04:31 Creatinine 0.66 mg/dL (0.70-1.30) L 01/16/23 04:31 Est GFR (MDRD) Af Amer 157 mL/min (>60) 01/16/23 04:31 Est GFR (MDRD) Non-Af 130 mL/min (>60) 01/16/23 04:31 BUN/Creatinine Ratio 7.6 RATIO (10-20) L 01/16/23 04:31 Glucose 138 mg/dL (74-106) H 01/16/23 04:31 Vancomycin Trough 23.0 ug/mL (5.0-15.0) H 01/15/23 05:00 Random Vancomycin 15.7 ug/mL (0.0-15.0) H 01/16/23 04:31 Microbiology Microbiology: Microbiology 01/11/23 11:56 Suprapubic Tap Urine Culture - Final Presumptive C albicans 01/11/23 11:56 Blood Culture (Wb) - Anticubital Right Blood Culture - Preliminary No growth in 48 hours. 01/11/23 11:15 Blood Culture (Wb) - Arm Right Blood Culture - Preliminary No growth in 48 hours. Pharmacy Plan for Drug Dosing Pharmacy Plan for Drug Dosing: Pharmacy Service will continue to monitor and adjust dosing as required. RANSOM LEVEL 15.7. START 1250MG Q12H AND FOLLOW UP TROUGH PRIOR TO 4TH DOSE Follow-Up Labs Follow-Up Labs: Trough: Vancomycin Date/Time Labs Ordered Labs to be done on [date and time ordered]: 01/17 @ 5871
[2023-01-16 06:53] LABS: Bedside Glucose 123 mg/dL (74-106)
[2023-01-16 08:23] VITALS: BP 138/74; PULSE 86; RESP 16; TEMP 36.6; O2SAT 100
[2023-01-16] MEDS: Bisacodyl 5 MG Tablet PO (10:50)
[2023-01-16] MEDS: Menthol/Lanolin/Calamine/Znox 113 GM Tube 1 APPLIC TOPICAL ×2 (10:50→22:04)
[2023-01-16] MEDS: Cilostazol 50 MG Tablet 100 MG PO ×2 (10:52→22:07)
[2023-01-16] MEDS: Senna Tablet 2 TABLET PO (10:52)
[2023-01-16] MEDS: Polyethylene Glycol 3350 17 GM PACKET PO ×2 (10:52→22:07)
[2023-01-16] MEDS: carBAMazepine 200 MG Tablet PO (10:53)
[2023-01-16] MEDS: Insulin Lispro 100 UNIT/ML INSULN.PEN SC (11:15)
[2023-01-16 12:48] LABS: Bedside Glucose 155 mg/dL (74-106)
[2023-01-16] MEDS: Ensure Plus High Protein 120 ML LIQUID PO ×2 (14:14→17:57)
[2023-01-16 15:24] VITALS: BP 121/83; PULSE 91; RESP 16; TEMP 36.8; O2SAT 100
--- NOTE | 2023-01-16 15:35 | PCM.PN.HOSP ---
Reason for Visit Reason for Visit: Diagnoses Gastro-esophageal reflux disease with esophagitis, without bleeding (01/11/23) Ulcer of esophagus without bleeding (01/11/23) Acute gastric ulcer with hemorrhage (01/11/23) Acute dilatation of stomach (01/11/23) Adult hypertrophic pyloric stenosis (01/11/23) Gastroparesis (01/11/23) Urinary tract infection, site not specified (01/11/23) Subjective Subjective Patient still has a little bit of abdominal distention but reports discomfort is slightly better, no other acute complaints Objective Data Objective Data Vital Signs: Vital Signs Temp Pulse Resp BP Pulse Ox O2 Del Method O2 Flow Rate 98.2 F 91 16 121/83 H 100 Room Air 2 01/16/23 15:24 01/16/23 15:24 01/16/23 15:24 01/16/23 15:24 01/16/23 15:24 01/16/23 15:24 01/11/23 16:24 Oxygen Flow Rate (L/min) 2 Oxygen Delivery Method Room Air Weight: 87.8 kg Body Mass Index (BMI) 33.2 Intake & Output: Intake and Output for Last 24 Hours 01/14/23 01/15/23 01/16/23 23:59 23:59 23:59 Intake Total 4710.00 / 4710.00 1982.42 / 1982.42 595 / 595 Output Total 2125 / 2125 5025 / 5025 2275 / 2275 Balance 2585.00 / 2585.00 -3041.58 / -3041.58 -1680 / -1680 Lab / Micro Data 01/16/23 04:31 01/16/23 04:31 Labs: Laboratory Results - last 24 hr 01/15/23 16:43: POC Glucose 201 H 01/15/23 20:41: POC Glucose 150 H 01/16/23 04:31: WBC 10.5, RBC 3.00 L, Hgb 8.6 L, Hct 26.7 L, MCV 89.0, MCH 28.7, MCHC 32.2, RDW Std Deviation 50.5 H, RDW Coeff of Janice 15.6 H, Plt Count 495 H, MPV 9.5, Immature Gran % (Auto) 0.700, Neut % (Auto) 68.7, Lymph % (Auto) 16.8 L, [place] % (Auto) 5.9, Eos % (Auto) 7.1 H, Baso % (Auto) 0.8, Absolute Neuts (auto) 7.2, Absolute Lymphs (auto) 1.76, Nucleated RBC % 0, Sodium 139, Potassium 3.5, Chloride 108 H, Carbon Dioxide 26.0, Anion Gap 5, BUN 5 L, Creatinine 0.66 L, Estim Creat Clear Calc 94.68, Est GFR (MDRD) Af Amer 157, Est GFR (MDRD) Non-Af 130, BUN/Creatinine Ratio 7.6 L, Glucose 138 H, Calcium 7.5 L, Random Vancomycin 15.7 H 01/16/23 05:09: POC Glucose 123 H 01/16/23 11:10: POC Glucose 155 H Micro: Microbiology 01/11/23 11:56 Blood Culture (Wb) - Anticubital Right Blood Culture - Final No growth in 5 days. 01/11/23 11:15 Blood Culture (Wb) - Arm Right Blood Culture - Final No growth in 5 days. 01/11/23 11:56 Suprapubic Tap Urine Culture - Final Presumptive C albicans Physical Exam Narrative General: Alert, no acute distress, more interactive HEENT: Atraumatic, normocephalic Eyes: Anicteric, normal conjunctiva, extraocular movements grossly intact Neck: Supple Respiratory: Clear to auscultation bilaterally, normal respiratory effort Cardiovascular: Regular rate and rhythm GI: Some distention, slightly softer than yesterday, no rebound, guarding, rigidity Extremities: No edema Musculoskeletal: Moving extremities Neuro: Contracted left upper extremity Skin: No rashes appreciated Psych: Cooperative Assessment & Plan Assessment/Plan (1) Urinary tract infection: PLAN: Plan Patient is a 62 M with history of vascular dementia, CVA, traumatic brain injury, bipolar disorder, COPD not on home O2, type 2 diabetes, DVT, seizure disorder and urinary retention with indwelling suprapubic catheter who presented to [facility] ED from his [facility] on 01/11/2023 with concern for UTI. #Sepsis without shock suspected source UTI -WBC 17 on admission with left shift, CT abdomen with findings that could be consistent with cystitis and UA with leuk esterase, white blood cell 10-25 and 1+ bacteria with 10 occult blood. Patient with chronic suprapubic catheter. Urine culture only with yeastlike organism with colony count of 1000-10,000, but cultures pending -Patient is on Zosyn as ED physician was able to access previous urine culture sensitivities and it was sensitive to Zosyn. -It appears he was on Merrem and linezolid with stop dates of 01/16 and 01/15 respectively, do not necessarily see need for MRSA coverage, continue Zosyn -01/14: Was able to locate patient's previous culture results which did show sensitivity to Zosyn however patient did also grow MRSA so MRSA coverage was readded and he was supposed to be on linezolid through 01/15 and had been on Merrem through 01/16 but given he was already on these it is unclear if presentation was indeed due to UTI or not, blood cultures no growth to date, suprapubic urine culture with 1000 and 10,000 colonies of presumptive Radha albicans. On the CT on admission there was bladder thickening consistent with cystitis however there is also thickening of sigmoid colon and rectum concerning for proctocolitis which could have been the source. Patient has overall improved with white count downtrending -01/15: Patient on vancomycin and Zosyn, he had been on linezolid and Merrem at outlying facility for UTI but came in with a sepsis-like picture and CT consistent with cystitis +/- proctocolitis, has improved on present regimen. ID consulted for optimal duration of antibiotics and possible need for IV antibiotics -01/16: Pending ID input, patient doing better today #Severe abdominal distention?pyloric stenosis status post dilation There is some concern for at least a partial small bowel obstruction given patient's stomach distention with seeming transitional point at duodenum. ED doc spoke with patient's sister; patient has never had abdominal surgery but has had issues with ileus and obstruction in the past. Has history of removal of stool impaction under anesthesia back in 2013. -Surgery consulted, appreciate recs. Planning to place NG tube for decompression and monitor. Monitor if patient is passing gas and/or having bowel movements. -01/13: Surgery and GI on board, patient continues to have NG tube, n.p.o. patient for EGD with possible dilation today -01/14: Patient underwent DD on 01/13 with grade C erosive esophagitis with bleeding, nonbleeding gastric ulcers, gastritis as well as gastric stenosis at the pylorus which was dilated. Is recommended that patient be on PPI twice daily for the remainder of his life. Continue PPI twice daily at this time. No plans for surgery at this time. Patient also on azithromycin and Reglan -01/15: Discussed with GI, when patient is discharged she will go on azithromycin and Reglan along with Carafate and PPI twice daily, it was advised that his Eliquis is not resumed -01/16: Discussed with GI, advancing diet, dietitian did see patient again and had dietary supplementation recommendations #History gastric ulcers -PPI changed to IV given patient unable to take p.o. at this time -Follows with GI in outpatient basis -GI also on board -01/14: PPI twice daily, status post EGD with dilation and treatment, additionally sucralfate 1 g p.o. 4 times daily -01/15: Hemoglobin stabilized, continue sucralfate and PPI twice daily #Hx vascular dementia, CVA, TBI ? Unable to obtain much history from patient as he is essentially nonverbal. Patient lives in nursing facility, will plan for back to facility on discharge. -Continue supportive care -CVA seems to been secondary to thrombosis per SNF med list -Patient's Eliquis presently held -01/14: Appreciate GI input on timing of Eliquis resumption, advised no aspirin or NSAIDs for 8 weeks -01/15: It was advised not to resume Eliquis at this time #History of seizure disorder and bipolar d/o ? Unable to give home p.o. carbamazepine given NG tube at this time. We will start IV Keppra 500 mg twice daily. Restart home medication as able. -Unclear nuances of patient's seizure disorder and if carbamazepine is more for behavioral. If it is indeed more behavioral Keppra can exacerbate this, will attempt to clarify as able. Continue Neurontin as patient is able, presently n.p.o. since has not been given -01/14: Now back on gabapentin, will switch Keppra to Tegretol as well #Sis-cwtpcpd-hdvtukalg type 2 diabetes - Medications of metformin 1000 mg twice daily, gabapentin for 100 mg every 6 hours. Metformin held, sliding scale insulin while inpatient as needed. Continue home gabapentin once patient tolerating p.o. -01/14: Continue sliding scale, patient cleared for full liquid diet -01/16: Advancing diet today #Hypertension ? On home ramipril 2.5 mg at night, furosemide 20 mg daily. Holding these medications for now, restart as needed. #History of DVT ? Had left lower extremity DVT April 2021, on home Eliquis. Presently on hold in the event patient needs surgery/intervention -01/14: Home Eliquis presently held -01/15: It is advised Eliquis not be resumed, will need to continue weighing risks and benefits over time #Normocytic anemia -On presentation hemoglobin 10.1, previously in July 2021 was 14.4, repeat labs -We will also obtain iron panel, B12, folate -01/14: We will give IV iron -01/15: Patient received IV iron, hemoglobin stable at present DVT prophylaxis: scds ordered Total clinical time spent by myself addressing the patient's medical issues, reviewing all the data, and collaborating with patient's care team: 40 minutes. Charges/Coding Visit Charges Inpatient E&M: 90288 Subs Hosp L2
[2023-01-16 16:27] LABS: Bedside Glucose 134 mg/dL (74-106)
--- NOTE | 2023-01-16 19:24 | PN.GI_ITS ---
Subjective Subjective Patient's says that his abdomen is slightly more distended today. He denies any abdominal pain. Objective Data Objective Data Vital Signs: Vital Signs Temp Pulse Resp BP Pulse Ox O2 Del Method O2 Flow Rate 98.2 F 91 16 121/83 H 100 Room Air 2 01/16/23 15:24 01/16/23 15:24 01/16/23 15:24 01/16/23 15:24 01/16/23 15:24 01/16/23 15:24 01/11/23 16:24 Oxygen Flow Rate (L/min) 2 Oxygen Delivery Method Room Air Weight: 193 lb 9.054 oz Body Mass Index (BMI) 33.2 Intake & Output: Intake and Output for Last 24 Hours 01/14/23 01/15/23 01/16/23 23:59 23:59 23:59 Intake Total 4710.00 / 4710.00 42 / 645 / 645 Output Total 2125 / 2125 5025 / 5025 3775 / 3775 Balance 2585.00 / 2585.00 -3041.58 / -3041.58 -3130 / -3130 Lab / Micro Data 01/16/23 04:31 01/16/23 04:31 Labs: Laboratory Results - last 24 hr 01/15/23 20:41: POC Glucose 150 H 01/16/23 04:31: WBC 10.5, RBC 3.00 L, Hgb 8.6 L, Hct 26.7 L, MCV 89.0, MCH 28.7, MCHC 32.2, RDW Std Deviation 50.5 H, RDW Coeff of Janice 15.6 H, Plt Count 495 H, MPV 9.5, Immature Gran % (Auto) 0.700, Neut % (Auto) 68.7, Lymph % (Auto) 16.8 L , [place] % (Auto) 5.9, Eos % (Auto) 7.1 H, Baso % (Auto) 0.8, Absolute Neuts (auto) 7.2, Absolute Lymphs (auto) 1.76, Nucleated RBC % 0, Sodium 139, Potassium 3.5, Chloride 108 H, Carbon Dioxide 26.0, Anion Gap 5, BUN 5 L, Creatinine 0.66 L, Estim Creat Clear Calc 94.68, Est GFR (MDRD) Af Amer 157, Est GFR (MDRD) Non-Af 130, BUN/Creatinine Ratio 7.6 L, Glucose 138 H, Calcium 7.5 L, Random Vancomycin 15.7 H 01/16/23 05:09: POC Glucose 123 H 01/16/23 11:10: POC Glucose 155 H 01/16/23 16:05: POC Glucose 134 H Micro: Microbiology 01/11/23 11:56 Blood Culture (Wb) - Anticubital Right Blood Culture - Final No growth in 5 days. 01/11/23 11:15 Blood Culture (Wb) - Arm Right Blood Culture - Final No growth in 5 days. 01/11/23 11:56 Suprapubic Tap Urine Culture - Final Presumptive C albicans Physical Exam Narrative General: Alert, no acute distress, more interactive HEENT: Atraumatic, normocephalic Eyes: Anicteric, normal conjunctiva, extraocular movements grossly intact Neck: Supple Respiratory: Clear to auscultation bilaterally, normal respiratory effort Cardiovascular: Regular rate and rhythm GI: Some distention, slightly softer than yesterday, no rebound, guarding, rigidity Extremities: No edema Musculoskeletal: Moving extremities Neuro: Contracted left upper extremity Skin: No rashes appreciated Psych: Cooperative Assessment & Plan Assessment/Plan (1) Gastric outlet obstruction: (2) Acute distention of stomach: (3) GERD (gastroesophageal reflux disease): QUALIFIERS: Esophagitis presence: with esophagitis Esophagitis bleeding: without hemorrhage Qualified Code(s): K21.00 - Gastro-esophageal reflux disease with esophagitis, without bleeding (4) Gastric ulcer: QUALIFIERS: Gastric ulcer chronicity: acute Gastric ulcer complication status: with hemorrhage Qualified Code(s): K25.0 - Acute gastric ulcer with hemorrhage PLAN: Plan 2 M who presents to the ED from skilled nursing with abdominal distention. He has a traumatic brain injury most history is taken from patient's chart in his sister. I originally got to know Chacorta established with this clinic 06.03.21 with symptoms of nausea and vomiting. He was previously seen by [facility] 04.28.21 for evaluation of vomiting with concern for gastric outlet obstruction, abnormal CT of abd/pel, elevated LFT; Started on PPI BID; He underwent EGD and was discovered to have multiple reasons for gastric outlet obstruction. I had a long talk with his sister and explained that I do not think he should be on blood thinners at this time due to multiple upper GI bleeds and previous gastric outlet obstruction from peptic ulcer disease. Biopsies were taken for H. pylori. He has been on medical therapy including azithromycin and Reglan therapy to promote gastric emptying. Recommend to stay away from fatty foods at this time. Continue PPI therapy as previously ordered. 01/15: Patient has no well from a GI standpoint. He will need a more bowel regimen to help his lack of movement gastroparesis underlying neuro logic deficits that affect his GI transit. Continue azithromycin and continue Reglan therapy. 01/16: Mild nauseated, but no abdominal pain. Repeat his Ct scan prior tomorrow. Continue Azithromycin and Reglan. Charges/Coding Visit Charges Inpatient E&M: 62797 Subs Hosp L3
[2023-01-16 20:45] VITALS: BP 149/74; PULSE 87; RESP 16; TEMP 37.1; O2SAT 95
[2023-01-16] MEDS: Atorvastatin Calcium 20 MG Tablet PO (22:07)
[2023-01-16] MEDS: carBAMazepine 200 MG Tablet 100 MG PO (22:07)
[2023-01-17] LABS: Bedside Glucose 148 mg/dL (74-106)
[2023-01-17] MEDS: Insulin Lispro 100 UNIT/ML INSULN.PEN SC ×2 (02:38→12:04)
[2023-01-17 02:40] VITALS: BP 133/68; PULSE 97; RESP 18; TEMP 36.6; O2SAT 95
[2023-01-17 02:59] LABS: Bedside Glucose 218 mg/dL (74-106)
[2023-01-17] MEDS: Sucralfate 1 GM Tablet PO ×2 (05:28→11:40)
[2023-01-17] MEDS: Gabapentin 300 MG Capsule PO ×4 (05:28→23:32)
[2023-01-17] MEDS: Gabapentin 100 MG Capsule PO ×4 (05:28→23:32)
[2023-01-17] MEDS: Metoclopramide 10 MG/2 ML Vial 5 MG IV ×4 (05:29→23:32)
[2023-01-17 07:15] LABS: Absolute Lymphocyte Count 1.42 X10^3/uL (0.83-4.51); Absolute Neutrophil Count 6.6 X10^3/uL (2.0-7.7); Basophil# 0.08 X10^3/uL; Basophil% 0.8 % (0-1); Eosinophils% 11.1 % (0-5); Hematocrit 30.1 % (40-54); Hemoglobin 9.4 g/dL (13.0-16.5); Lymphocyte # 1.42 X10^3/ul (0.83-4.51); Lymphocyte % 14.3 % (19-41); Mean Corp Hgb Conc 31.2 g/dL (32-36); Mean Corpuscular Hgb 27.7 pg (27.0-32.0); Mean Corpuscular Volume 88.8 fL (80-94); Mean Platelet Vol. 9.6 fl (6.2-12.0); Monocyte# 0.63 X10^3/uL; Monocyte% 6.4 % (0-10); NRBC Flagged by Analyzer 0 % (0-5); Neutrophil % 66.7 % (47-70); Platelet Count 495 K/mm3 (150-450); RBC Distribution Width CV 15.8 % (11.6-14.6); RBC Distribution Width SD 50.4 fl (35.1-43.9); Red Blood Count 3.39 M/mm3 (4.6-6.2); White Blood Count 9.9 K/mm3 (4.4-11.0)
[2023-01-17 07:17] LABS: Bedside Glucose 134 mg/dL (74-106)
[2023-01-17 07:39] LABS: Anion Gap 5 (5-15); BUN 6 mg/dL (7-18); BUN/Creat Ratio 7.9 RATIO (10-20); Calcium,Total 7.8 mg/dL (8.5-10.1); Chloride 107 mmol/L (98-107); Creatinine, Serum 0.76 mg/dL (0.70-1.30); EST Glomerular Filtration Rate 109 mL/min (>60); Est Glom Filt Rate - Afr Amer 132 mL/min (>60); Estimated Creatinine Clearance 82.22 ml/min; Glucose 142 mg/dL (74-106); Potassium 3.9 mmol/L (3.5-5.1); Sodium Level 137 mmol/L (136-145)
--- NOTE | 2023-01-17 07:49 | CT_ITS ---
We are attempting to reach an attending provider to discuss findings. An addendum with communication details will be sent when the communication is complete. STUDY: CT ABDOMEN AND PELVIS WITH CONTRAST REASON FOR EXAM: Male, 62 years old. Abd distension, recent yong outlet obst on ct 01/11 RADIATION DOSAGE (If Supplied By Facility): CTDIvol = ( 16.90 ) mGy, DLP = ( 1278.94 ) mGycm TECHNIQUE: Transaxial images were obtained from the dome of the diaphragm to the symphysis pubis without oral contrast. ml of Gastrografin and amp; 100mL Isovue-300 contrast was administered. Sagittal and coronal images were reconstructed. Individualized dose optimization techniques were used for this CT. COMPARISON: CT of abdomen and pelvis dated January 11, 2023 FINDINGS: The visualized lung bases are unremarkable. The visualized portions of the heart are within normal limits. Minimal bibasilar atelectasis is present with small bilateral pleural effusions. The previously gaseous distended stomach has been decompressed, and now is of normal luminal diameter and contains a small to moderate amount of food contents. Normal liver. Normal gallbladder and extrahepatic biliary system. Normal spleen. Normal pancreas. Normal bilateral adrenal glands. There is mild cortical atrophy of the right kidney, consistent with chronic medical renal disease. There is mild cortical atrophy of the left kidney, consistent with chronic medical renal disease. Normal visualized stomach. Normal small intestine. Abnormal moderate gaseous distention of the distal sigmoid colon which appears blind ending proximally and conjunction with collapsed rectal lumen with moderate edema and thickening of the wall down to the anus is suggestive of volvulus versus elongated redundant colon with inflammation. The full length of the colon proximal to this region is filled with stool. Consult and evaluation by his general surgery is recommended. No demonstrated free air or free fluid of the abdomen and pelvis. The appendix is visualized and appears normal. There is diffuse atherosclerotic calcification of the abdominal aorta, without a demonstrated aneurysm. Normal inferior vena cava. Normal retroperitoneum. The bladder is collapsed around a Ricci catheter and balloon. Normal abdominal wall. There are diffuse degenerative changes of the visualized lumbar spine. CT/Abdomen/Pelvis WITH Contrast IMPRESSION: 1. Abnormal moderate gaseous distention of the distal sigmoid colon which appears blind ending proximally and conjunction with collapsed rectal lumen with moderate edema and thickening of the wall down to the anus is suggestive of volvulus versus elongated redundant colon with inflammation. The full length of the colon proximal to this region is filled with stool. Consult and evaluation by his general surgery is recommended. Electronically Signed: Dane Mercado MD at 12:15 EDT ,
--- NOTE | 2023-01-17 08:56 | CASEMGMT ---
[facility]charge Planning [facility] Natalie Silva, Discharge Planning Asst.
[2023-01-17 09:34] VITALS: BP 138/69; PULSE 94; RESP 18; TEMP 36.8; O2SAT 98
[2023-01-17] MEDS: 0.9% Saline Lock 10 ML Syringe IV ×4 (09:40→18:27)
[2023-01-17] MEDS: Menthol/Lanolin/Calamine/Znox 113 GM Tube 1 APPLIC TOPICAL ×2 (09:47→20:35)
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
[2023-01-17] MEDS: Bisacodyl 5 MG Tablet PO (11:38)
[2023-01-17] MEDS: Polyethylene Glycol 3350 17 GM PACKET PO (11:38)
[2023-01-17] MEDS: Senna Tablet 2 TABLET PO ×2 (11:40→21:08)
[2023-01-17] MEDS: carBAMazepine 200 MG Tablet PO (11:41)
[2023-01-17] MEDS: Cilostazol 50 MG Tablet 100 MG PO ×2 (11:41→21:08)
[2023-01-17] MEDS: Ensure Plus High Protein 120 ML LIQUID PO ×2 (11:45→18:26)
[2023-01-17 12:15] LABS: Bedside Glucose 158 mg/dL (74-106)
--- NOTE | 2023-01-17 13:19 | PN.HOSP_ITS ---
Reason for Visit Reason for Visit: Diagnoses Gastro-esophageal reflux disease with esophagitis, without bleeding (01/11/23) Ulcer of esophagus without bleeding (01/11/23) Acute gastric ulcer with hemorrhage (01/11/23) Acute dilatation of stomach (01/11/23) Adult hypertrophic pyloric stenosis (01/11/23) Gastroparesis (01/11/23) Urinary tract infection, site not specified (01/11/23) Subjective Subjective Patient sitting in bed resting comfortably at time of exam and denied abdominal pain Objective Data Objective Data Vital Signs: Vital Signs Temp Pulse Resp BP Pulse Ox O2 Del Method O2 Flow Rate 98.3 F 94 18 138/69 H 98 Room Air 2 01/17/23 09:34 01/17/23 09:34 01/17/23 09:34 01/17/23 09:34 01/17/23 09:34 01/17/23 09:34 01/11/23 16:24 Oxygen Flow Rate (L/min) 2 Oxygen Delivery Method Room Air Weight: 87.8 kg Body Mass Index (BMI) 33.2 Intake & Output: Intake and Output for Last 24 Hours 01/15/23 01/16/23 01/17/23 23:59 23:59 23:59 Intake Total 1983.42 / 1983.42 1285 / 1285 477.5 / 477.5 Output Total 5025 / 5025 3775 / 5075 5200 / 5200 Balance -3041.58 / -3041.58 -2490 / -3790 -4722.5 / -4722.5 Lab / Micro Data 01/17/23 07:03 01/17/23 07:03 Labs: Laboratory Results - last 24 hr 01/16/23 16:05: POC Glucose 134 H 01/16/23 22:01: POC Glucose 148 H 01/17/23 02:37: POC Glucose 218 H 01/17/23 06:58: POC Glucose 134 H 01/17/23 07:03: WBC 9.9, RBC 3.39 L, Hgb 9.4 L, Hct 30.1 L, MCV 88.8, MCH 27.7, MCHC 31.2 L, RDW Std Deviation 50.4 H, RDW Coeff of Janice 15.8 H, Plt Count 495 H, MPV 9.6, Immature Gran % (Auto) 0.700, Neut % (Auto) 66.7, Lymph % (Auto) 14.3 L , [place] % (Auto) 6.4, Eos % (Auto) 11.1 H, Baso % (Auto) 0.8, Absolute Neuts (auto) 6.6, Absolute Lymphs (auto) 1.42, Nucleated RBC % 0, Sodium 137, Potassium 3.9, Chloride 107, Carbon Dioxide 25.0, Anion Gap 5, BUN 6 L, Creatinine 0.76, Estim Creat Clear Calc 82.22, Est GFR (MDRD) Af Amer 132, Est GFR (MDRD) Non-Af 109, BUN/Creatinine Ratio 7.9 L, Glucose 142 H, Calcium 7.8 L 01/17/23 11:57: POC Glucose 158 H Micro: Microbiology 01/11/23 11:56 Blood Culture (Wb) - Anticubital Right Blood Culture - Final No growth in 5 days. 01/11/23 11:15 Blood Culture (Wb) - Arm Right Blood Culture - Final No growth in 5 days. 01/11/23 11:56 Suprapubic Tap Urine Culture - Final Presumptive C albicans Radiography Diagnostic Testing: Radiology Impression Abdomen/Pelvis CT 01/17/23 07:49 IMPRESSION: 1. Abnormal moderate gaseous distention of the distal sigmoid colon which appears blind ending proximally and conjunction with collapsed rectal lumen with moderate edema and thickening of the wall down to the anus is suggestive of volvulus versus elongated redundant colon with inflammation. The full length of the colon proximal to this region is filled with stool. Consult and evaluation by his general surgery is recommended. Electronically Signed: Dane Mercado MD at 12:15 EDT , ADDENDUM: 01/17/23 1232 IMPRESSION: 1. Abnormal moderate gaseous distention of the distal sigmoid colon which appears blind ending proximally and conjunction with collapsed rectal lumen with moderate edema and thickening of the wall down to the anus is suggestive of volvulus versus elongated redundant colon with inflammation. The full length of the colon proximal to this region is filled with stool. Consult and evaluation by his general surgery is recommended. N.B. : The above Results were Read Back by Dane Mercado MD to Isabel Hopkins RN, and understanding confirmed on 01/17/2023 12:30:14 (ET). Electronically Signed: Dane Mercado MD at 12:15 EDT , Physical Exam Narrative General: Resting comfortably HEENT: Atraumatic, normocephalic Eyes: Anicteric, normal conjunctiva, extraocular movements grossly intact Neck: Supple Respiratory: Clear to auscultation bilaterally, normal respiratory effort Cardiovascular: Regular rate and rhythm GI: Some distention, no rebound, guarding, rigidity Extremities: No edema Musculoskeletal: Moving extremities Neuro: Contracted left upper extremity Skin: No rashes appreciated Psych: Cooperative Assessment & Plan Assessment/Plan (1) Urinary tract infection: PLAN: Plan Patient is a 62 M with history of vascular dementia, CVA, traumatic brain injury, bipolar disorder, COPD not on home O2, type 2 diabetes, DVT, seizure disorder and urinary retention with indwelling suprapubic catheter who presented to [facility] ED from his assisted on 01/11/2023 with concern for UTI. #Sepsis without shock suspected source UTI -WBC 17 on admission with left shift, CT abdomen with findings that could be consistent with cystitis and UA with leuk esterase, white blood cell 10-25 and 1+ bacteria with 10 occult blood. Patient with chronic suprapubic catheter. Urine culture only with yeastlike organism with colony count of 1000-10,000, but cultures pending -Patient is on Zosyn as ED physician was able to access previous urine culture sensitivities and it was sensitive to Zosyn. -It appears he was on Merrem and linezolid with stop dates of 01/16 and 01/15 respectively, do not necessarily see need for MRSA coverage, continue Zosyn -01/14: Was able to locate patient's previous culture results which did show sensitivity to Zosyn however patient did also grow MRSA so MRSA coverage was readded and he was supposed to be on linezolid through 01/15 and had been on Merrem through 01/16 but given he was already on these it is unclear if presentation was indeed due to UTI or not, blood cultures no growth to date, suprapubic urine culture with 1000 and 10,000 colonies of presumptive Radha albicans. On the CT on admission there was bladder thickening consistent with cystitis however there is also thickening of sigmoid colon and rectum concerning for proctocolitis which could have been the source. Patient has overall improved with white count downtrending -01/15: Patient on vancomycin and Zosyn, he had been on linezolid and Merrem at outlying facility for UTI but came in with a sepsis-like picture and CT consistent with cystitis +/- proctocolitis, has improved on present regimen. ID consulted for optimal duration of antibiotics and possible need for IV antibiotics -01/16: Pending ID input, patient doing better today -01/17: ID evaluated, antibiotics discontinued, patient is completed course #Severe abdominal distention?pyloric stenosis status post dilation There is some concern for at least a partial small bowel obstruction given patient's stomach distention with seeming transitional point at duodenum. ED doc spoke with patient's sister; patient has never had abdominal surgery but has had issues with ileus and obstruction in the past. Has history of removal of stool impaction under anesthesia back in 2013. -Surgery consulted, appreciate recs. Planning to place NG tube for d ecompression and monitor. Monitor if patient is passing gas and/or having bowel movements. -01/13: Surgery and GI on board, patient continues to have NG tube, n.p.o. patient for EGD with possible dilation today -01/14: Patient underwent DD on 01/13 with grade C erosive esophagitis with bleeding, nonbleeding gastric ulcers, gastritis as well as gastric stenosis at the pylorus which was dilated. Is recommended that patient be on PPI twice daily for the remainder of his life. Continue PPI twice daily at this time. No plans for surgery at this time. Patient also on azithromycin and Reglan -01/15: Discussed with GI, when patient is discharged she will go on azithromycin and Reglan along with Carafate and PPI twice daily, it was advised that his Eliquis is not resumed -01/16: Discussed with GI, advancing diet, dietitian did see patient again and had dietary supplementation recommendations -01/17: Ordered CT per GI recommendations, abnormal moderate gaseous distention of the distal sigmoid colon which appears blind-ending proximally in conjunction with collapsed rectal lumen and moderate edema and thickening of the wall down to the anus is suggestive of volvulus versus elongated redundant colon with inflammation in the full length of the colon proximal to that is filled with stool. Discussed with general surgery who saw him last week and they recommended KUB and GI input. This has been ordered #History gastric ulcers -PPI changed to IV given patient unable to take p.o. at this time -Follows with GI in outpatient basis -GI also on board -01/14: PPI twice daily, status post EGD with dilation and treatment, additionally sucralfate 1 g p.o. 4 times daily -01/15: Hemoglobin stabilized, continue sucralfate and PPI twice daily #Hx vascular dementia, CVA, TBI ? Unable to obtain much history from patient as he is essentially nonverbal. Patient lives in nursing facility, will plan for back to facility on discharge. -Continue supportive care -CVA seems to been secondary to thrombosis per SNF med list -Patient's Eliquis presently held -01/14: Appreciate GI input on timing of Eliquis resumption, advised no aspirin or NSAIDs for 8 weeks -01/15: It was advised not to resume Eliquis at this time #History of seizure disorder and bipolar d/o ? Unable to give home p.o. carbamazepine given NG tube at this time. We will start IV Keppra 500 mg twice daily. Restart home medication as able. -Unclear nuances of patient's seizure disorder and if carbamazepine is more for behavioral. If it is indeed more behavioral Keppra can exacerbate this, will attempt to clarify as able. Continue Neurontin as patient is able, presently n.p.o. since has not been given -01/14: Now back on gabapentin, will switch Keppra to Tegretol as well #Fzn-osrbsax-mpycnqrwk type 2 diabetes - Medications of metformin 1000 mg twice daily, gabapentin for 100 mg every 6 hours. Metformin held, sliding scale insulin while inpatient as needed. Continue home gabapentin once patient tolerating p.o. -01/14: Continue sliding scale, patient cleared for full liquid diet -01/16: Advancing diet today #Hypertension ? On home ramipril 2.5 mg at night, furosemide 20 mg daily. Holding these medications for now, restart as needed. #History of DVT ? Had left lower extremity DVT April 2021, on home Eliquis. Presently on hold in the event patient needs surgery/intervention -01/14: Home Eliquis presently held -01/15: It is advised Eliquis not be resumed, will need to continue weighing risks and benefits over time #Normocytic anemia -On presentation hemoglobin 10.1, previously in July 2021 was 14.4, repeat labs -We will also obtain iron panel, B12, folate -01/14: We will give IV iron -01/15: Patient received IV iron, hemoglobin stable at present DVT prophylaxis: scds ordered Total clinical time spent by myself addressing the patient's medical issues, reviewing all the data, and collaborating with patient's care team: 58 minutes. Charges/Coding Visit Charges Inpatient E&M: 84154 [facility] Hosp L3
--- NOTE | 2023-01-17 13:20 | RAD_ITS ---
STUDY: X-RAY - ABDOMEN/PELVIS REASON FOR EXAM: Male, 62 years old. possible volvulus TECHNIQUE: Single AP view of the abdomen / pelvis. COMPARISON: Numerous prior studies including CT scan of the same day. FINDINGS: Normal visualized lung bases. There is marked distention of the stomach, also present previously. There is gaseous distention of the colon, most compatible with a colonic ileus. No specific evidence for volvulus seen. There is no demonstrated free abdominal air. The visualized liver, spleen and kidneys are grossly normal in size and morphology. Normal soft tissue structures. Normal visualized osseous structures. RAD/Abdomen Single View (Portable) IMPRESSION: Continued prominent distention of the stomach and large bowel. No specific pattern of volvulus. Electronically Signed: Parveen Corcoran MD at 16:54 EDT ,
--- NOTE | 2023-01-17 14:29 | CT_ITS ---
STUDY: CT ABDOMEN AND PELVIS WITHOUT CONTRAST REASON FOR EXAM: Male, 62 years old. volvulus vs inflammation. RECTAL CONRAST ONLY -- RECTAL CONTRAST ONLY. PRIOR FECAL IMPACTION THAT REQUIRED SURGERY RADIATION DOSAGE (If Supplied By Facility): CTDIvol = ( 17.82 ) mGy, DLP = ( 979.67 ) mGycm TECHNIQUE: Transaxial images were obtained from the dome of the diaphragm to the symphysis pubis without oral contrast, and without intravenous contrast. Sagittal and coronal images were reconstructed. Individualized dose optimization techniques were used for this CT. COMPARISON: CT of abdomen and pelvis dated January 17, 2023 at 10:48 AM FINDINGS: Follow-up exam at 2:57 PM Rectal contrast has been administered. A small amount of contrast is also seen in the ileum. The descending colon and rectosigmoid junction are markedly elongated and swings to the right of midline in the mid abdominal region descending down to the anus. No focal stenosis or lead point is seen to suggest volvulus, however there is mild gaseous distention of the descending colon and proximal sigmoid colon. Unresolved moderate circumferential edema and thickening of the mucosa of the rectum down to the anus consistent with proctitis/nonspecified colitis. There is no demonstrated fecal impaction on the current study. If symptoms do not resolve endoscopy may be required to evaluate the abnormally thickened mucosa. No free air or free fluid or evidence of perforation. No small bowel obstruction. Moderate stool retention throughout the colon. The remaining findings are stable. CT/Abdomen/Pelvis without Cont IMPRESSION: 1. No focal stenosis or lead point is seen to suggest volvulus, however there is mild gaseous distention of the descending colon and proximal sigmoid colon. Unresolved moderate circumferential edema and thickening of the mucosa of the rectum down to the anus consistent with proctitis/nonspecified colitis. There is no demonstrated fecal impaction on the current study. If symptoms do not resolve endoscopy may be required to evaluate the abnormally thickened mucosa. Electronically Signed: Dane Mercado MD at 16:04 EDT ,
[2023-01-17 16:14] LABS: Bedside Glucose 203 mg/dL (74-106)
[2023-01-17 16:15] VITALS: BP 127/86; PULSE 93; RESP 18; TEMP 37.1; O2SAT 95
--- NOTE | 2023-01-17 16:17 | EX.PCM.PN.GI ---
Subjective Subjective Patient says that his abdominal distention is a little bit better today. He denies any nausea or vomiting. He denies any chest pain or shortness of breath. Objective Data Objective Data Vital Signs: Vital Signs Temp Pulse Resp BP Pulse Ox O2 Del Method O2 Flow Rate 98.3 F 94 18 138/69 H 98 Room Air 2 01/17/23 09:34 01/17/23 09:34 01/17/23 09:34 01/17/23 09:34 01/17/23 09:34 01/17/23 09:34 01/11/23 16:24 Oxygen Flow Rate (L/min) 2 Oxygen Delivery Method Room Air Weight: 193 lb 9.054 oz Body Mass Index (BMI) 33.2 Intake & Output: Intake and Output for Last 24 Hours 01/15/23 01/16/23 01/17/23 23:59 23:59 23:59 Intake Total 42 / 1285 / 1285 827.5 / 827.5 Output Total 5025 / 5025 3775 / 5075 6350 / 6350 Balance -3041.58 / -3041.58 -2490 / -3790 -5522.5 / -5522.5 Lab / Micro Data 01/17/23 07:03 01/17/23 07:03 Labs: Laboratory Results - last 24 hr 01/16/23 16:05: POC Glucose 134 H 01/16/23 22:01: POC Glucose 148 H 01/17/23 02:37: POC Glucose 218 H 01/17/23 06:58: POC Glucose 134 H 01/17/23 07:03: WBC 9.9, RBC 3.39 L, Hgb 9.4 L, Hct 30.1 L, MCV 88.8, MCH 27.7, MCHC 31.2 L, RDW Std Deviation 50.4 H, RDW Coeff of Janice 15.8 H, Plt Count 495 H, MPV 9.6, Immature Gran % (Auto) 0.700, Neut % (Auto) 66.7, Lymph % (Auto) 14.3 L, [place] % (Auto) 6.4, Eos % (Auto) 11.1 H, Baso % (Auto) 0.8, Absolute Neuts (auto) 6.6, Absolute Lymphs (auto) 1.42, Nucleated RBC % 0, Sodium 137, Potassium 3.9, Chloride 107, Carbon Dioxide 25.0, Anion Gap 5, BUN 6 L, Creatinine 0.76, Estim Creat Clear Calc 82.22, Est GFR (MDRD) Af Amer 132, Est GFR (MDRD) Non-Af 109, BUN/Creatinine Ratio 7.9 L, Glucose 142 H, Calcium 7.8 L 01/17/23 11:57: POC Glucose 158 H 01/17/23 15:53: POC Glucose 203 H Micro: Microbiology 01/11/23 11:56 Blood Culture (Wb) - Anticubital Right Blood Culture - Final No growth in 5 days. 01/11/23 11:15 Blood Culture (Wb) - Arm Right Blood Culture - Final No growth in 5 days. 01/11/23 11:56 Suprapubic Tap Urine Culture - Final Presumptive C albicans Radiography Diagnostic Testing: Radiology Impression Abdomen/Pelvis CT 01/17/23 07:49 IMPRESSION: 1. Abnormal moderate gaseous distention of the distal sigmoid colon which appears blind ending proximally and conjunction with collapsed rectal lumen with moderate edema and thickening of the wall down to the anus is suggestive of volvulus versus elongated redundant colon with inflammation. The full length of the colon proximal to this region is filled with stool. Consult and evaluation by his general surgery is recommended. Electronically Signed: Dane Mercado MD at 12:15 EDT Reading Location ID and State: [facility] / [place] , Service support , ADDENDUM: 01/17/23 1238 IMPRESSION: 1. Abnormal moderate gaseous distention of the distal sigmoid colon which appears blind ending proximally and conjunction with collapsed rectal lumen with moderate edema and thickening of the wall down to the anus is suggestive of volvulus versus elongated redundant colon with inflammation. The full length of the colon proximal to this region is filled with stool. Consult and evaluation by his general surgery is recommended. N.B. : The above Results were Read Back by Dane Mercado MD to Isabel Hopkins RN, and understanding confirmed on 01/17/2023 12:30:14 (ET). Electronically Signed: Dane Mercado MD at 12:15 EDT , Abdomen/Pelvis CT 01/17/23 14:29 IMPRESSION: 1. No focal stenosis or lead point is seen to suggest volvulus, however there is mild gaseous distention of the descending colon and proximal sigmoid colon. Unresolved moderate circumferential edema and thickening of the mucosa of the rectum down to the anus consistent with proctitis/nonspecified colitis. There is no demonstrated fecal impaction on the current study. If symptoms do not resolve endoscopy may be required to evaluate the abnormally thickened mucosa. Electronically Signed: Dane Mercado MD at 16:04 EDT , Physical Exam Narrative General: Resting comfortably HEENT: Atraumatic, normocephalic Eyes: Anicteric, normal conjunctiva, extraocular movements grossly intact Neck: Supple Respiratory: Clear to auscultation bilaterally, normal respiratory effort Cardiovascular: Regular rate and rhythm GI: Some distention, no rebound, guarding, rigidity Extremities: No edema Musculoskeletal: Moving extremities Neuro: Contracted left upper extremity Skin: No rashes appreciated Psych: Cooperative Assessment & Plan Assessment/Plan (1) Gastric outlet obstruction: (2) Acute distention of stomach: (3) GERD (gastroesophageal reflux disease): QUALIFIERS: Esophagitis presence: with esophagitis Esophagitis bleeding: without hemorrhage Qualified Code(s): K21.00 - Gastro-esophageal reflux disease with esophagitis, without bleeding (4) Gastric ulcer: QUALIFIERS: Gastric ulcer chronicity: acute Gastric ulcer complication status: with hemorrhage Qualified Code(s): K25.0 - Acute gastric ulcer with hemorrhage PLAN: Plan 2 M who presents to the ED from longterm with abdominal distention. He has a traumatic brain injury most history is taken from patient's chart in his sister. I originally got to know Chacorta established with this clinic 06.03.21 with symptoms of nausea and vomiting. He was previously seen by [facility] 04.28.21 for evaluation of vomiting with concern for gastric outlet obstruction, abnormal CT of abd/pel, elevated LFT; Started on PPI BID; He underwent EGD and was discovered to have multiple reasons for gastric outlet obstruction. I had a long talk with his sister and explained that I do not think he should be on blood thinners at this time due to multiple upper GI bleeds and previous gastric outlet obstruction from peptic ulcer disease. Biopsies were taken for H. pylori. He has been on medical therapy including azithromycin and Reglan therapy to promote gastric emptying. Recommend to stay away from fatty foods at this time. Continue PPI therapy as previously ordered. 01/15: Patient has no well from a GI standpoint. He will need a more bowel regimen to help his lack of movement gastroparesis underlying neuro logic deficits that affect his GI transit. Continue azithromycin and continue Reglan therapy. 01/16: Mild nauseated, but no abdominal pain. Repeat his Ct scan prior tomorrow. Continue Azithromycin and Reglan. 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 Surgical consultation was placed and further imaging was ordered. We will wait to see what that shows. If that is okay then I recommend senna 2 tabs p.o. twice daily and MiraLAX 17 g p.o. twice daily. He should also get tapwater enema prior to getting oral cathartics and oral laxative. Charges/Coding Visit Charges Inpatient E&M: 21010 Subs Hosp L3
--- NOTE | 2023-01-17 17:26 | PN_ITS ---
Progress Note Was notified by patient's primary team that patient had undergone CT imaging which was read by radiology as concerning for possible sigmoid volvulus. While my own interpretation of the CT imaging of the abdomen pelvis was not concerning for volvulus, I have not seen the patient in recent days and so I conferred with gastroenterology who confirmed there was no suspicion for this finding. Additionally, we agreed to pursue rectal contrast CT to better study the distal large bowel. This was performed and ultimately read as unconcerning for volv ulus, but does show evidence of proctitis and distal colitis. Following these radiologic studies I have visited with Mr. Edwards and his sister in his room. Mr. Edwards was nontoxic and gradually talking with a family member on the phone. Concluding his conversation, he denied any abdominal discomfort and reported an appetite. He has mild distention of his abdomen, but no tenderness with palpati on. I believe this is in keeping with the CT findings of mild gaseous distention of the stomach as well as significant fecal impaction throughout much of the colon. I would recommend serial enemas from below to work to alleviate the stool burden and hopefully the distention, secondarily. Visit Charges Inpatient E&M: 68796 Subs Hosp L1
[2023-01-17 21:01] VITALS: BP 118/68; PULSE 92; RESP 18; TEMP 37.6; O2SAT 94
[2023-01-17] MEDS: Atorvastatin Calcium 20 MG Tablet PO (21:08)
[2023-01-17] MEDS: carBAMazepine 200 MG Tablet 100 MG PO (21:08)
[2023-01-17] MEDS: Polyethylene Glycol 3350 17 GM PACKET 34 GM PO (21:08)
[2023-01-17 21:33] LABS: Bedside Glucose 140 mg/dL (74-106)
[2023-01-18 04:00] VITALS: BP 130/81; PULSE 93; RESP 18; TEMP 37.1; O2SAT 97
[2023-01-18] MEDS: Gabapentin 100 MG Capsule PO ×2 (04:46→11:49)
[2023-01-18] MEDS: Metoclopramide 10 MG/2 ML Vial 5 MG IV ×2 (04:46→11:46)
[2023-01-18] MEDS: Gabapentin 300 MG Capsule PO ×2 (04:46→11:49)
[2023-01-18 05:16] LABS: Bedside Glucose 128 mg/dL (74-106)
[2023-01-18 06:49] LABS: Basophil# 0.06 X10^3/uL; Basophil% 0.5 % (0-1); Eosinophil# 1.37 X10^3/uL; Eosinophils% 12.5 % (0-5); Hematocrit 32.2 % (40-54); Hemoglobin 10.2 g/dL (13.0-16.5); Lymphocyte % 14.6 % (19-41); Mean Corp Hgb Conc 31.7 g/dL (32-36); Mean Corpuscular Volume 88.5 fL (80-94); Mean Platelet Vol. 9.8 fl (6.2-12.0); Monocyte# 0.83 X10^3/uL; Monocyte% 7.6 % (0-10); NRBC Flagged by Analyzer 0 % (0-5); Neutrophil # 7.01 X10^3/uL (2.7-7.7); Neutrophil % 64.3 % (47-70); Platelet Count 484 K/mm3 (150-450); Red Blood Count 3.64 M/mm3 (4.6-6.2); White Blood Count 10.9 K/mm3 (4.4-11.0)
[2023-01-18 07:17] LABS: Anion Gap 5 (5-15); BUN 5 mg/dL (7-18); Calcium,Total 8.5 mg/dL (8.5-10.1); Chloride 104 mmol/L (98-107); Creatinine, Serum 0.83 mg/dL (0.70-1.30); EST Glomerular Filtration Rate 99 mL/min (>60); Est Glom Filt Rate - Afr Amer 119 mL/min (>60); Estimated Creatinine Clearance 75.29 ml/min; Glucose 123 mg/dL (74-106); Potassium 4.2 mmol/L (3.5-5.1); Sodium Level 134 mmol/L (136-145)
--- NOTE | 2023-01-18 08:54 | CASEMGMT ---
Social Work Phone call placed to pt's sister/HCPOA Sunita and updated on discharge plan. Sunita continues to agree for pt to return to [facility] when medically ready. LUIS FELIPE Cueva
--- NOTE | 2023-01-18 09:02 | CASEMGMT ---
Discharge Planning Updates sent to [facility] via [facility]. Natalie Silva, Discharge Planning Asst.
[2023-01-18 09:40] VITALS: BP 131/67; PULSE 88; RESP 18; TEMP 36.9; O2SAT 94
[2023-01-18] MEDS: Bisacodyl 5 MG Tablet PO (09:48)
[2023-01-18] MEDS: Menthol/Lanolin/Calamine/Znox 113 GM Tube 1 APPLIC TOPICAL (09:48)
[2023-01-18] MEDS: Polyethylene Glycol 3350 17 GM PACKET 34 GM PO (09:49)
[2023-01-18] MEDS: Senna Tablet 2 TABLET PO (09:49)
[2023-01-18] MEDS: Cilostazol 50 MG Tablet 100 MG PO (09:50)
[2023-01-18] MEDS: carBAMazepine 200 MG Tablet PO (09:50)
[2023-01-18] MEDS: Ensure Plus High Protein 120 ML LIQUID PO (09:52)
--- NOTE | 2023-01-18 11:25 | PCM.TXEXTCAR ---
Diet Diet Order/Speech Therapy: 01/16/23 14:06 Diet: Transitional Dietary Modifications:: Fat Restricted Type of Dietary Supplement:: Beneprotein Is pt able to select menu?: No Diet Comments: 1 scoop tid Routine Orders/Code Status Suppository Type: Dulcolax 10mg Suppository Frequency: Daily PRN Wound(s) glut: Wound Type: Pressure Injury left buttocks: Wound Type: Pressure Injury Therapies Physical Therapy: Eval and Treat Occupational Therapy: Eval and Treat Problem/Diagnosis (1) Gastric outlet obstruction: Status: Acute Code(s): K31.1 - Adult hypertrophic pyloric stenosis (2) Acute distention of stomach: Status: Acute Code(s): K31.0 - Acute dilatation of stomach (3) GERD (gastroesophageal reflux disease): Status: Acute Code(s): K21.9 - Gastro-esophageal reflux disease without esophagitis (4) Gastric ulcer: Status: Acute Code(s): K25.9 - Gastric ulcer, unspecified as acute or chronic, without hemorrhage or perforation Plan #UTI, sepsis ruled out #Severe abdominal distention?pyloric stenosis status post dilation #gastric ulcers #constipation with abdominal distention #Hx vascular dementia, CVA, TBI #History of seizure disorder and bipolar d/o #Iqq-ibnxssk-xqovrfevi type 2 diabetes #Hypertension #History of DVT #Normocytic anemia CHACORTA COLEY is a 62 M with history of vascular dementia, CVA, traumatic brain injury, bipolar disorder, COPD not on home O2, type 2 diabetes, DVT, seizure disorder and urinary retention with indwelling suprapubic catheter who presented to [facility] ED from his [facility] 01/11/2023 with concern for UTI. In the ED his white blood cell count was 17.9 and UA with 500 leuk esterase and 1+ bacteria. CT abdomen pelvis with IV contrast showed circumferential wall thickening of the bladder consistent with cystitis. Also showed a dilated and gas-filled stomach concerning for gastric outlet obstruction, circumferential wall thickening of the sigmoid colon and rectum concerning for proctocolitis, and circumferential wall thickening of the distal esophagus possibly secondary to esophagitis. There was concern for sepsis secondary to UTI versus GI source. Patient does have chronic suprapubic catheter and it was revealed that he was already on linezolid and Merrem for UTI prior to coming in with stop dates of 01/16 and 01/15 patient was placed on vancomycin and Zosyn. He also had severe abdominal distention and initially had an NG tube but ultimately was able to have EGD on 01/13 which noted grade C erosive esophagitis with bleeding, nonbleeding gastric ulcers, gastritis as well as gastric stenosis at the pylorus which was dilated. It is recommended that patient be on PPI twice daily for the remainder of his life. It is also recommended that he not resume Eliquis or any antiplatelets and that sucralfate be added. Given some concerns for continued motility difficulty he was started on azithromycin and Reglan as well. Overall he did well. ID consulted given patient came in on linezolid and Merrem and is presently on vancomycin and Zosyn for input on optimal antibiotic and timing and it was confirmed patient finished his antibiotics. Patient was going to be discharged however he had some abdominal distention and CT was recommended by GI, CT with concern for volvulus versus inflammation and redundant colon, discussed with GI and surgery and rectal CT done and ultimately was not felt to be volvulus based on imaging and patient's benign appearance and no abdominal pain. Discussed with GI and it was felt that this was likely all stool burden and escalating bowel regimen recommended. These orders were placed with pt having BM. On day of discharge no acute complaints. Discharge instructions as follows: -You will need your thyroid function repeated on outpatient basis to verify they are within the normal range -You will need to be on Protonix twice daily on discharge due to your history of GI bleeds and ulcers and you will need to adhere to a low-fat diet and high-protein diet, would recommend additional protein supplementation -It was also advised that you do not resume Eliquis at this time given the ulcers and bleeding. This can be reassessed on an outpatient basis moving forward with weighing risks and benefits -You will also be discharged on azithromycin and Reglan to help with gut motility per GI recommendations -You will also need to continue on aggressive bowel regimen to continue having bowel movements -You will need to follow-up with Dr. Walker with GI in his office upon discharge. Please call his office to schedule your hospital follow-up appointment (ph. [phone]) -Please call your primary care provider's office upon discharge to schedule a hospital follow up within 1 week. -For any concerning signs or symptoms please call 911 or proceed to the nearest emergency department Allergies/Procedures Done in Hospital Allergies codeine Allergy (Intermediate, Verified 10/31/22 15:07) unknown lorazepam Allergy (Intermediate, Verified 10/31/22 15:07) unknown morphine Allergy (Intermediate, Verified 10/31/22 15:07) unknown Sulfa (Sulfonamide Antibiotics) Allergy (Intermediate, Verified 10/31/22 15:07) unknown Procedures: - (EGD w/ pyloric dilation) Type of Care/Length of Stay Estimated LOS: More Than 30 Days Type of Care Needed: Intermediate Rehab Potential: Fair Prognosis: Fair Additional Orders/Day of Discharge Day of Discharge: 01/18/23 Dietary and Speech Recommendations Dietitian Recommendations/Changes: Rec SCARLETT to liberal Regular Low Fat - (consider need of CHO control if gluc elevated) - give 1 scoop beneprotein w/ meals tid Will order 4 oz chocolate EPHP w/ medpass 4x/day Discharge Plan Admission Admit Date/Time: 01/11/23 15:22 Primary Reason for Your Visit: Complicated UTI, abdominal distention Attending Provider: Sylvia Fuentes Primary Care Provider: Jose Cr Consulting Providers: Chacorta Gaitan; Rogelio Chakraborty; Gina Benson; Blayne Mayen Instructions Patient Instructions: ED Upper GI Bleeding (Stable) Additional Instructions / Restrictions: DISCHARGE INSTRUCTIONS PLEASE READ *Please take this with you to your next doctors appointment* -You will need your thyroid function repeated on outpatient basis to verify they are within the normal range -You will need to be on Protonix twice daily on discharge due to your history of GI bleeds and ulcers -It was also advised that you do not resume Eliquis at this time given the ulcers and bleeding. This can be reassessed on an outpatient basis moving forward with weighing risks and benefits -You will also be discharged on azithromycin and Reglan to help with gut motility per GI recommendations -You will also need to continue on aggressive bowel regimen to continue having bowel movements -You will need to follow-up with Dr. Walker with GI in his office upon discharge. Please call his office to schedule your hospital follow-up appointment (ph. [phone]) -Please call your primary care provider's office upon discharge to schedule a hospital follow up within 1 week. -For any concerning signs or symptoms please call 911 or proceed to the nearest emergency department Discharge Orders/Prescriptions Prescriptions: New Ensure Plus High Protein 0.08 gram-1.5 kcal/mL Liquid 120 ml PO 4X/DAY Qty: 0 0RF azithromycin 500 mg tablet 500 mg PO QHS 30 Days Qty: 30 0RF metoclopramide HCl [Reglan] 5 mg tablet 5 mg PO Q6H 30 Days Qty: 120 0RF Continued cholecalciferol (vitamin D3) 10 mcg (400 unit) capsule 10 mcg PO DAILY cilostazol 100 mg tablet 100 mg PO BID fluticasone propionate [Flonase Allergy Relief] 50 mcg/actuation spray,suspension 1 spray intranasal DAILY Rx Instructions: administer into each nostril ramipril 2.5 mg capsule 2.5 mg PO QHS potassium chloride 10 mEq Capsule, Extended Release 10 meq PO DAILY atorvastatin 20 mg Tablet 20 mg PO QHS zinc acetate 25 mg (zinc) Capsule 25 mg PO DAILY carbamazepine 100 mg Tablet Extended Release 12 Hr 200 mg PO DAILY flaxseed oil 1,000 mg Capsule 1,000 mg PO DAILY metformin 1,000 mg Tablet 1,000 mg PO BID gabapentin [Neurontin] 300 mg Capsule 300 mg PO Q6H bisacodyl 5 mg Tablet,Delayed Release (Dr/Ec) 5 mg PO QHS PRN (Reason: constipation) furosemide 20 mg Tablet 20 mg PO DAILY gabapentin [Neurontin] 100 mg Capsule 100 mg PO Q6H vitamin B complex Capsule 1 cap PO DAILY carbamazepine 100 mg Capsule, Er Multiphase 12 Hr 100 mg PO QHS bisacodyl 5 mg PO DAILY Veronica-Bid 1 billion cell- 250 mg tablet 1 tab PO DAILY menthol-zinc oxide [CalaSoothe] 0.44-20.6 % ointment 1 applic topical TID lidocaine HCl 4 % adhesive patch,medicated 1 patch topical DAILY Patient Comments: right hip Rx Instructions: may leave on for up to 12 hrs mometasone 0.1 % cream 1 applic TOPICAL QHS Nicotrol 10 mg cartridge 1 inh inhalation Q4H PRN (Reason: nicotine cravings) Prolia 60 mg/mL syringe 60 mg subcut .q 6 months Renacidin 1,980.6 mg-59.4 mg-980.4mg/30mL solution 30 ml irrigation TID sennosides [senna] 8.6 mg tablet 17.2 mg PO DAILY Changed pantoprazole [Protonix] 20 mg tablet,delayed release (DR/EC) 40 mg PO BID Qty: 30 5RF polyethylene glycol 3350 [ClearLax] 17 gram/dose powder 17 g PO BID Qty: 510 0RF Discontinued linezolid 600 mg tablet 600 mg PO BID Patient Comments: finish 01/15/2023 meropenem 500 mg recon soln 500 mg IV Q8H Patient Comments: finish 01/16/2023 Eliquis 2.5 mg tablet 2.5 mg PO BID Referrals / Follow Up: Jhonatan Walker DO [Med Staff - Active Staff] - ( -You will need to follow-up with Dr. Walker with GI in his office upon discharge. Please call his office to schedule your hospital follow-up appointment (ph. [phone])) Jose Cr MD [Primary Care Provider] - Within 1 Week Disposition Disposition (needs filled in before D/C Order can be placed): NonSkilled NH/Intermed Care (3) GERD (gastroesophageal reflux disease) Qualifiers: Esophagitis bleeding: without hemorrhage Esophagitis presence: with esophagitis Qualified Code(s): K21.00 - Gastro-esophageal reflux disease with esophagitis, without bleeding (4) Gastric ulcer Qualifiers: Gastric ulcer chronicity: acute Gastric ulcer complication status: with hemorrhage Qualified Code(s): K25.0 - Acute gastric ulcer with hemorrhage
[2023-01-18 11:37] LABS: Bedside Glucose 306 mg/dL (74-106)
--- NOTE | 2023-01-18 11:37 | PCM.DC.SUM ---
Providers Date of Admission: 01/11/23 Date of Discharge: 01/18/23 Primary Care Physician: Dr. Jose Cr MD Consultations 01/11/23 19:51 Consult: General Surgery Routine Consulting Provider: Chacorta Gaitan Reason for Consult: Severe abdominal distention EMERGENT Consult: No Notified: Yes Date Notified: 01/11/23 Time Notified: 22:01 Method of Notification: Text 01/12/23 14:40 Consult: Gastroenterology Routine Consulting Provider: [facility] Reason for Consult: possible gastric outlet obstruction EMERGENT Consult: No Notified: Yes Date Notified: 01/12/23 Time Notified: 14:41 Method of Notification: Text 01/16/23 13:52 Consult: Infectious Disease Routine Consulting Provider: Blayne Mayen Reason for Consult: recommendations EMERGENT Consult: No Notified: Yes Date Notified: 01/16/23 Time Notified: 08:00 Method of Notification: Text Reason For Visit: COMPLICATED UTI / CONCERN FOR SBO Diagnosis Discharge Diagnosis (1) Gastric outlet obstruction: Status: Acute Code(s): K31.1 - Adult hypertrophic pyloric stenosis (2) Acute distention of stomach: Status: Acute Code(s): K31.0 - Acute dilatation of stomach (3) GERD (gastroesophageal reflux disease): Status: Acute Code(s): K21.9 - Gastro-esophageal reflux disease without esophagitis Qualifiers: Esophagitis bleeding: without hemorrhage Esophagitis presence: with esophagitis Qualified Code(s): K21.00 - Gastro-esophageal reflux disease with esophagitis, without bleeding (4) Gastric ulcer: Status: Acute Code(s): K25.9 - Gastric ulcer, unspecified as acute or chronic, without hemorrhage or perforation Qualifiers: Gastric ulcer chronicity: acute Gastric ulcer complication status: with hemorrhage Qualified Code(s): K25.0 - Acute gastric ulcer with hemorrhage Plan #UTI, sepsis ruled out #Severe abdominal distention?pyloric stenosis status post dilation #gastric ulcers #constipation with abdominal distention #Hx vascular dementia, CVA, TBI #History of seizure disorder and bipolar d/o #Lky-bslfqmi-lhsgcyayb type 2 diabetes #Hypertension #History of DVT #Normocytic anemia Medications at Discharge Home Medications cholecalciferol (vitamin D3) 10 mcg (400 unit) capsule 10 mcg PO DAILY SUPPLEMENT 06/03/21 cilostazol 100 mg tablet 100 mg PO BID MUSCLE CRAMPS 06/03/21 fluticasone propionate 50 mcg/actuation nasal spray,suspension (Flonase Allergy Relief) 1 spray intranasal DAILY 06/03/21 ramipril 2.5 mg capsule 2.5 mg PO QHS 06/03/21 atorvastatin 20 mg tablet 20 mg PO QHS CHOLESTEROL 08/04/21 bisacodyl 5 mg tablet,delayed release 5 mg PO QHS PRN constipation 08/04/21 carbamazepine 100 mg capsule,extended release [id number] 100 mg PO QHS SEIZURES 08/04/21 carbamazepine 100 mg tablet,extended release,12 hr 200 mg PO DAILY SEIZURES 08/04/21 flaxseed oil 1,000 mg capsule 1,000 mg PO DAILY 08/04/21 furosemide 20 mg tablet 20 mg PO DAILY 08/04/21 gabapentin 100 mg capsule (Neurontin) 100 mg PO Q6H 08/04/21 gabapentin 300 mg capsule (Neurontin) 300 mg PO Q6H 08/04/21 metformin 1,000 mg tablet 1,000 mg PO BID 08/04/21 potassium chloride 10 mEq capsule,extended release 10 meq PO DAILY 08/04/21 vitamin B complex 1 cap PO DAILY 08/04/21 zinc acetate 25 mg (zinc) capsule 25 mg PO DAILY 08/04/21 L.acidophilus-L.bulgar-B.bifid-S.thermoph 1 billion cell-250 mg tablet (Veronica-Bid) 1 tab PO DAILY 01/11/23 bisacodyl 5 mg PO DAILY 01/11/23 citric ac 1980.6 mg-glucono 59.4 mg-mag carb 980.4 mg/30 mL irrig.soln (Renacidin) 30 ml irrigation TID 01/11/23 denosumab 60 mg/mL subcutaneous syringe (Prolia) 60 mg subcut .q 6 months 01/11/23 lidocaine HCl 4 % topical patch 1 patch topical DAILY 01/11/23 menthol 0.44 %-zinc oxide 20.6 % topical ointment (CalaSoothe) 1 applic topical TID 01/11/23 mometasone 0.1 % topical cream 1 applic topical QHS skin 01/11/23 nicotine 10 mg inhalation cartridge (Nicotrol) 1 inh inhalation Q4H PRN nicotine cravings 01/11/23 sennosides 8.6 mg tablet (senna) 17.2 mg PO DAILY 01/11/23 azithromycin 500 mg tablet 500 mg PO QHS 30 days #30 tabs 01/18/23 food supplemt, lactose-reduced 0.08 gram-1.5 kcal/mL oral liquid (Ensure Plus High Protein) 120 ml PO 4X/DAY #0 mL 01/18/23 metoclopramide HCl 5 mg tablet (Reglan) 5 mg PO Q6H 30 days #120 tabs 01/18/23 pantoprazole 20 mg tablet,delayed release (Protonix) 40 mg (2 x 20 mg) PO BID #30 tabs 01/18/23 polyethylene glycol 3350 17 gram/dose oral powder (ClearLax) 17 g PO BID #510 grams 01/18/23 Hospital Course Procedures - (EGD w/ pyloric stenosis dilation) Summary of Care Provided Minutes Spent on Discharge: 40 Hospital Course: CHACORTA COLEY is a 62 M with history of vascular dementia, CVA, traumatic brain injury, bipolar disorder, COPD not on home O2, type 2 diabetes, DVT, seizure disorder and urinary retention with indwelling suprapubic catheter who presented to [facility] ED from his residential on 01/11/2023 with concern for UTI. In the ED his white blood cell count was 17.9 and UA with 500 leuk esterase and 1+ bacteria. CT abdomen pelvis with IV contrast showed circumferential wall thickening of the bladder consistent with cystitis. Also showed a dilated and gas-filled stomach concerning for gastric outlet obstruction, circumferential wall thickening of the sigmoid colon and rectum concerning for proctocolitis, and circumferential wall thickening of the distal esophagus possibly secondary to esophagitis. There was concern for sepsis secondary to UTI versus GI source. Patient does have chronic suprapubic catheter and it was revealed that he was already on linezolid and Merrem for UTI prior to coming in with stop dates of 01/16 and 01/15 patient was placed on vancomycin and Zosyn. He also had severe abdominal distention and initially had an NG tube but ultimately was able to have EGD on 01/13 which noted grade C erosive esophagitis with bleeding, nonbleeding gastric ulcers, gastritis as well as gastric stenosis at the pylorus which was dilated. It is recommended that patient be on PPI twice daily for the remainder of his life. It is also recommended that he not resume Eliquis or any antiplatelets and that sucralfate be added. Given some concerns for continued motility difficulty he was started on azithromycin and Reglan as well. Overall he did well. ID consulted given patient came in on linezolid and Merrem and is presently on vancomycin and Zosyn for input on optimal antibiotic and timing and it was confirmed patient finished his antibiotics. Patient was going to be discharged however he had some abdominal distention and CT was recommended by GI, CT with concern for volvulus versus inflammation and redundant colon, discussed with GI and surgery and rectal CT done and ultimately was not felt to be volvulus based on imaging and patient's benign appearance and no abdominal pain. Discussed with GI and it was felt that this was likely all stool burden and escalating bowel regimen recommended. These orders were placed with pt having BM. On day of discharge no acute complaints. Discharge instructions as follows: -You will need your thyroid function repeated on outpatient basis to verify they are within the normal range -You will need to be on Protonix twice daily on discharge due to your history of GI bleeds and ulcers and you will need to adhere to a low-fat diet and high-protein diet, would recommend additional protein supplementation -It was also advised that you do not resume Eliquis at this time given the ulcers and bleeding. This can be reassessed on an outpatient basis moving forward with weighing risks and benefits -You will also be discharged on azithromycin and Reglan to help with gut motility per GI recommendations -You will also need to continue on aggressive bowel regimen to continue having bowel movements -You will need to follow-up with Dr. Walker with GI in his office upon discharge. Please call his office to schedule your hospital follow-up appointment (ph. [phone]) -Please call your primary care provider's office upon discharge to schedule a hospital follow up within 1 week. -For any concerning signs or symptoms please call 911 or proceed to the nearest emergency department Physical Exam Narrative General: Resting comfortably HEENT: Atraumatic, normocephalic Eyes: Anicteric, normal conjunctiva, extraocular movements grossly intact Neck: Supple Respiratory: Clear to auscultation bilaterally, normal respiratory effort Cardiovascular: Regular rate and rhythm GI: Some distention, but improved and softer, no rebound, guarding, rigidity Extremities: No edema Musculoskeletal: Moving extremities Neuro: Contracted left upper extremity Skin: No rashes appreciated Psych: Cooperative Weight / BMI Weight Weight: 87.8 kg Body Mass Index (BMI) 33.2 ABG / Lab / Microbiology Data 01/18/23 06:05 01/18/23 06:05 Laboratory: Laboratory Results - last 24 hr 01/17/23 11:57: POC Glucose 158 H 01/17/23 15:53: POC Glucose 203 H 01/17/23 20:37: POC Glucose 140 H 01/18/23 04:44: POC Glucose 128 H 01/18/23 06:05: WBC 10.9, RBC 3.64 L, Hgb 10.2 L, Hct 32.2 L, MCV 88.5, MCH 28.0, MCHC 31.7 L, RDW Std Deviation 52.0 H, RDW Coeff of Janice 16.0 H, Plt Count 484 H, MPV 9.8, Immature Gran % (Auto) 0.500, Neut % (Auto) 64.3, Lymph % (Auto) 14.6 L, [place] % (Auto) 7.6, Eos % (Auto) 12.5 H, Baso % (Auto) 0.5, Absolute Neuts (auto) 7.0, Absolute Lymphs (auto) 1.60, Nucleated RBC % 0, Sodium 134 L, Potassium 4.2, Chloride 104, Carbon Dioxide 25.0, Anion Gap 5, BUN 5 L, Creatinine 0.83, Estim Creat Clear Calc 75.29, Est GFR (MDRD) Af Amer 119, Est GFR (MDRD) Non-Af 99, BUN/Creatinine Ratio 6.0 L, Glucose 123 H, Calcium 8.5 Microbiology: Microbiology 01/11/23 11:56 Blood Culture (Wb) - Anticubital Right Blood Culture - Final No growth in 5 days. 01/11/23 11:15 Blood Culture (Wb) - Arm Right Blood Culture - Final No growth in 5 days. 01/11/23 11:56 Suprapubic Tap Urine Culture - Final Presumptive C albicans Radiography Diagnostic Testing: Radiology Impression Abdomen/Pelvis CT 01/17/23 07:49 IMPRESSION: 1. Abnormal moderate gaseous distention of the distal sigmoid colon which appears blind ending proximally and conjunction with collapsed rectal lumen with moderate edema and thickening of the wall down to the anus is suggestive of volvulus versus elongated redundant colon with inflammation. The full length of the colon proximal to this region is filled with stool. Consult and evaluation by his general surgery is recommended. Electronically Signed: Dane Mercado MD at 12:15 EDT , ADDENDUM: 01/17/23 1238 IMPRESSION: 1. Abnormal moderate gaseous distention of the distal sigmoid colon which appears blind ending proximally and conjunction with collapsed rectal lumen with moderate edema and thickening of the wall down to the anus is suggestive of volvulus versus elongated redundant colon with inflammation. The full length of the colon proximal to this region is filled with stool. Consult and evaluation by his general surgery is recommended. N.B. : The above Results were Read Back by Dane Mercado MD to Isabel Hopkins RN, and understanding confirmed on 01/17/2023 12:30:14 (ET). Electronically Signed: Dane Mercado MD at 12:15 EDT , KUB X-Ray 01/17/23 13:20 IMPRESSION: Continued prominent distention of the stomach and large bowel. No specific pattern of volvulus. Electronically Signed: Parveen Corcoran MD at 16:54 EDT , Abdomen/Pelvis CT 01/17/23 14:29 IMPRESSION: 1. No focal stenosis or lead point is seen to suggest volvulus, however there is mild gaseous distention of the descending colon and proximal sigmoid colon. Unresolved moderate circumferential edema and thickening of the mucosa of the rectum down to the anus consistent with proctitis/nonspecified colitis. There is no demonstrated fecal impaction on the current study. If symptoms do not resolve endoscopy may be required to evaluate the abnormally thickened mucosa. Electronically Signed: Dane Mercado MD at 16:04 EDT , D/C Instructions Discharge Diet: - (High-protein and low fatty food diet) Discharge Activity: - (Return to previous activity as tolerated) Meaningful Use Info Meaningful Use Diagnoses (Choose all that apply): None applicable Discharge Plan Admission Admit Date/Time: 01/11/23 15:22 Primary Reason for Your Visit: Complicated UTI, abdominal distention Attending Provider: Sylvia Fuentes Primary Care Provider: Jose Cr Consulting Providers: Chacorta Gaitan; Rogelio Chakraborty; Gina Benson; Blayne Mayen Instructions Patient Instructions: ED Upper GI Bleeding (Stable) Additional Instructions / Restrictions: DISCHARGE INSTRUCTIONS PLEASE READ *Please take this with you to your next doctors appointment* -You will need your thyroid function repeated on outpatient basis to verify they are within the normal range -You will need to be on Protonix twice daily on discharge due to your history of GI bleeds and ulcers -It was also advised that you do not resume Eliquis at this time given the ulcers and bleeding. This can be reassessed on an outpatient basis moving forward with weighing risks and benefits -You will also be discharged on azithromycin and Reglan to help with gut motility per GI recommendations -You will also need to continue on aggressive bowel regimen to continue having bowel movements -You will need to follow-up with Dr. Walker with GI in his office upon discharge. Please call his office to schedule your hospital follow-up appointment (ph. [phone]) -Please call your primary care provider's office upon discharge to schedule a hospital follow up within 1 week. -For any concerning signs or symptoms please call 911 or proceed to the nearest emergency department Discharge Orders/Prescriptions Prescriptions: New Ensure Plus High Protein 0.08 gram-1.5 kcal/mL Liquid 120 ml PO 4X/DAY Qty: 0 0RF azithromycin 500 mg tablet 500 mg PO QHS 30 Days Qty: 30 0RF metoclopramide HCl [Reglan] 5 mg tablet 5 mg PO Q6H 30 Days Qty: 120 0RF Continued cholecalciferol (vitamin D3) 10 mcg (400 unit) capsule 10 mcg PO DAILY cilostazol 100 mg tablet 100 mg PO BID fluticasone propionate [Flonase Allergy Relief] 50 mcg/actuation spray,suspension 1 spray intranasal DAILY Rx Instructions: administer into each nostril ramipril 2.5 mg capsule 2.5 mg PO QHS potassium chloride 10 mEq Capsule, Extended Release 10 meq PO DAILY atorvastatin 20 mg Tablet 20 mg PO QHS zinc acetate 25 mg (zinc) Capsule 25 mg PO DAILY carbamazepine 100 mg Tablet Extended Release 12 Hr 200 mg PO DAILY flaxseed oil 1,000 mg Capsule 1,000 mg PO DAILY metformin 1,000 mg Tablet 1,000 mg PO BID gabapentin [Neurontin] 300 mg Capsule 300 mg PO Q6H bisacodyl 5 mg Tablet,Delayed Release (Dr/Ec) 5 mg PO QHS PRN (Reason: constipation) furosemide 20 mg Tablet 20 mg PO DAILY gabapentin [Neurontin] 100 mg Capsule 100 mg PO Q6H vitamin B complex Capsule 1 cap PO DAILY carbamazepine 100 mg Capsule, Er Multiphase 12 Hr 100 mg PO QHS bisacodyl 5 mg PO DAILY Veronica-Bid 1 billion cell- 250 mg tablet 1 tab PO DAILY menthol-zinc oxide [CalaSoothe] 0.44-20.6 % ointment 1 applic topical TID lidocaine HCl 4 % adhesive patch,medicated 1 patch topical DAILY Patient Comments: right hip Rx Instructions: may leave on for up to 12 hrs mometasone 0.1 % cream 1 applic TOPICAL QHS Nicotrol 10 mg cartridge 1 inh inhalation Q4H PRN (Reason: nicotine cravings) Prolia 60 mg/mL syringe 60 mg subcut .q 6 months Renacidin 1,980.6 mg-59.4 mg-980.4mg/30mL solution 30 ml irrigation TID sennosides [senna] 8.6 mg tablet 17.2 mg PO DAILY Changed pantoprazole [Protonix] 20 mg tablet,delayed release (DR/EC) 40 mg PO BID Qty: 30 5RF polyethylene glycol 3350 [ClearLax] 17 gram/dose powder 17 g PO BID Qty: 510 0RF Discontinued linezolid 600 mg tablet 600 mg PO BID Patient Comments: finish 01/15/2023 meropenem 500 mg recon soln 500 mg IV Q8H Patient Comments: finish 01/16/2023 Eliquis 2.5 mg tablet 2.5 mg PO BID Referrals / Follow Up: Friend,Jhonatan, DO [Med Staff - Active Staff] - ( -You will need to follow-up with Dr. Walker with GI in his office upon discharge. Please call his office to schedule your hospital follow-up appointment (ph. [phone])) Jose Cr MD [Primary Care Provider] - Within 1 Week Disposition Disposition (needs filled in before D/C Order can be placed): NonSkilled NH/Intermed Care Charges/Coding Visit Charges Inpatient E&M: 17290 Disch Hosp >30min
[2023-01-18] MEDS: Insulin Lispro 100 UNIT/ML INSULN.PEN SC (11:46)
--- NOTE | 2023-01-18 12:00 | PN.GI_ITS ---
Subjective Subjective Patient had 2 bowel movements a day. He denies any abdominal pain. Objective Data Objective Data Vital Signs: Vital Signs Temp Pulse Resp BP Pulse Ox O2 Del Method O2 Flow Rate 98.4 F 88 18 131/67 H 94 Room Air 2 01/18/23 09:40 01/18/23 09:40 01/18/23 09:40 01/18/23 09:40 01/18/23 09:40 01/18/23 09:42 01/11/23 16:24 Oxygen Flow Rate (L/min) 2 Oxygen Delivery Method Room Air Weight: 193 lb 9.054 oz Body Mass Index (BMI) 33.2 Intake & Output: Intake and Output for Last 24 Hours 01/16/23 01/17/23 01/18/23 23:59 23:59 23:59 Intake Total 1285 / 1285 1592.5 / 1592.5 860 / 860 Output Total 3775 / 5075 8350 / 8350 2049 / 2049 Balance -2490 / -3790 -6757.5 / -6757.5 -1190 / -1190 Lab / Micro Data 01/18/23 06:05 01/18/23 06:05 Labs: Laboratory Results - last 24 hr 01/17/23 15:53: POC Glucose 203 H 01/17/23 20:37: POC Glucose 140 H 01/18/23 04:44: POC Glucose 128 H 01/18/23 06:05: WBC 10.9, RBC 3.64 L, Hgb 10.2 L, Hct 32.2 L, MCV 88.5, MCH 28.0, MCHC 31.7 L, RDW Std Deviation 52.0 H, RDW Coeff of Janice 16.0 H, Plt Count 484 H, MPV 9.8, Immature Gran % (Auto) 0.500, Neut % (Auto) 64.3, Lymph % (Auto) 14.6 L, [place] % (Auto) 7.6, Eos % (Auto) 12.5 H, Baso % (Auto) 0.5, Absolute Neuts (auto) 7.0, Absolute Lymphs (auto) 1.60, Nucleated RBC % 0, Sodium 134 L, Potassium 4.2, Chloride 104, Carbon Dioxide 25.0, Anion Gap 5, BUN 5 L, Creatinine 0.83, Estim Creat Clear Calc 75.29, Est GFR (MDRD) Af Amer 119, Est GFR (MDRD) Non-Af 99, BUN/Creatinine Ratio 6.0 L, Glucose 123 H, Calcium 8.5 01/18/23 11:16: POC Glucose 306 H Micro: Microbiology 01/11/23 11:56 Blood Culture (Wb) - Anticubital Right Blood Culture - Final No growth in 5 days. 01/11/23 11:15 Blood Culture (Wb) - Arm Right Blood Culture - Final No growth in 5 days. 01/11/23 11:56 Suprapubic Tap Urine Culture - Final Presumptive C albicans Radiography Diagnostic Testing: Radiology Impression KUB X-Ray 01/17/23 13:20 IMPRESSION: Continued prominent distention of the stomach and large bowel. No specific pattern of volvulus. Electronically Signed: Parveen Corcoran MD at 16:54 EDT , Abdomen/Pelvis CT 01/17/23 14:29 IMPRESSION: 1. No focal stenosis or lead point is seen to suggest volvulus, however there is mild gaseous distention of the descending colon and proximal sigmoid colon. Unresolved moderate circumferential edema and thickening of the mucosa of the rectum down to the anus consistent with proctitis/nonspecified colitis. There is no demonstrated fecal impaction on the current study. If symptoms do not resolve endoscopy may be required to evaluate the abnormally thickened mucosa. Electronically Signed: Dane Mercado MD at 16:04 EDT , Physical Exam Narrative General: Resting comfortably HEENT: Atraumatic, normocephalic Eyes: Anicteric, normal conjunctiva, extraocular movements grossly intact Neck: Supple Respiratory: Clear to auscultation bilaterally, normal respiratory effort Cardiovascular: Regular rate and rhythm GI: Some distention, but improved and softer, no rebound, guarding, rigidity Extremities: No edema Musculoskeletal: Moving extremities Neuro: Contracted left upper extremity Skin: No rashes appreciated Psych: Cooperative Assessment & Plan Assessment/Plan (1) Gastric outlet obstruction: (2) Acute distention of stomach: (3) GERD (gastroesophageal reflux disease): QUALIFIERS: Esophagitis presence: with esophagitis Esophagitis bleeding: without hemorrhage Qualified Code(s): K21.00 - Gastro-esophageal reflux disease with esophagitis, without bleeding (4) Gastric ulcer: QUALIFIERS: Gastric ulcer chronicity: acute Gastric ulcer complication status: with hemorrhage Qualified Code(s): K25.0 - Acute gastric ulcer with hemorrhage PLAN: Plan 2 M who presents to the ED from senior care with abdominal distention. He has a traumatic brain injury most history is taken from patient's chart in his sister. I originally got to know Chacorta established with this clinic 06.03.21 with symptoms of nausea and vomiting. He was previously seen by [facility] 04.28.21 for evaluation of vomiting with concern for gastric outlet obstruction, abnormal CT of abd/pel, elevated LFT; Started on PPI BID; He underwent EGD and was discovered to have multiple reasons for gastric outlet obstruction. I had a long talk with his sister and explained that I do not think he should be on blood thinners at this time due to multiple upper GI bleeds and previous gastric outlet obstruction from peptic ulcer disease. Biopsies were taken for H. pylori. He has been on medical therapy including azithromycin and Reglan therapy to promote gastric emptying. Recommend to stay away from fatty foods at this time. Continue PPI therapy as previously ordered. 01/15: Patient has no well from a GI standpoint. He will need a more bowel regimen to help his lack of movement gastroparesis underlying neuro logic deficits that affect his GI transit. Continue azithromycin and continue Reglan therapy. 01/16: Mild nauseated, but no abdominal pain. Repeat his Ct scan prior tomorrow. Continue Azithromycin and Reglan. 01/18: CT scan of the abdomen and pelvis to me looks like an ileus with colonic pseudoobstruction secondary to [place] syndrome in the setting of a dilated stomach from known gastroparesis. Surgical consultation was placed and further imaging was ordered. We will wait to see what that shows. If that is okay then I recommend senna 2 tabs p.o. twice daily and MiraLAX 17 g p.o. twice daily. He should also get tapwater enema prior to getting oral cathartics and oral laxative. Charges/Coding Visit Charges Inpatient E&M: 59849 Subs Hosp L3
--- NOTE | 2023-01-18 12:09 | CASEMGMT ---
Social Work Per physician, pt is ready for discharge today. Discharge orders sent to [facility] via [facility]. Transportation arranged with [facility] for 1400 pickler helper via cot. Phone call to pt sister Sunita and updated that pt will return to [facility] today and pickler helper time. Pt, nurse and [facility] updated on pickler helper time. Disposition: Return to [facility], intermediate level of care LUIS FELIPE Cueva
--- NOTE | 2023-01-18 12:24 | PHA.DC.MR.R ---
Pharmacy [place] Med Reconciliation Pharmacy Service has performed discharge medication reconciliation for this patient upon transfer to [facility] the [facility]. The patient's discharge medication list was reviewed for discrepancies and discrepancies were resolved. Medications at Discharge Home Medications cholecalciferol (vitamin D3) 10 mcg (400 unit) capsule 10 mcg PO DAILY SUPPLEMENT 06/03/21 cilostazol 100 mg tablet 100 mg PO BID MUSCLE CRAMPS 06/03/21 fluticasone propionate 50 mcg/actuation nasal spray,suspension (Flonase Allergy Relief) 1 spray intranasal DAILY 06/03/21 ramipril 2.5 mg capsule 2.5 mg PO QHS 06/03/21 atorvastatin 20 mg tablet 20 mg PO QHS CHOLESTEROL 08/04/21 bisacodyl 5 mg tablet,delayed release 5 mg PO QHS PRN constipation 08/04/21 carbamazepine 100 mg capsule,extended release [id number] 100 mg PO QHS SEIZURES 08/04/21 carbamazepine 100 mg tablet,extended release,12 hr 200 mg PO DAILY SEIZURES 08/04/21 flaxseed oil 1,000 mg capsule 1,000 mg PO DAILY 08/04/21 furosemide 20 mg tablet 20 mg PO DAILY 08/04/21 gabapentin 100 mg capsule (Neurontin) 100 mg PO Q6H 08/04/21 gabapentin 300 mg capsule (Neurontin) 300 mg PO Q6H 08/04/21 metformin 1,000 mg tablet 1,000 mg PO BID 08/04/21 potassium chloride 10 mEq capsule,extended release 10 meq PO DAILY 08/04/21 vitamin B complex 1 cap PO DAILY 08/04/21 zinc acetate 25 mg (zinc) capsule 25 mg PO DAILY 08/04/21 L.acidophilus-L.bulgar-B.bifid-S.thermoph 1 billion cell-250 mg tablet (Veronica-Bid) 1 tab PO DAILY 01/11/23 bisacodyl 5 mg PO DAILY 01/11/23 citric ac 1980.6 mg-glucono 59.4 mg-mag carb 980.4 mg/30 mL irrig.soln (Renacidin) 30 ml irrigation TID 01/11/23 denosumab 60 mg/mL subcutaneous syringe (Prolia) 60 mg subcut .q 6 months 01/11/23 lidocaine HCl 4 % topical patch 1 patch topical DAILY 01/11/23 menthol 0.44 %-zinc oxide 20.6 % topical ointment (CalaSoothe) 1 applic topical TID 01/11/23 mometasone 0.1 % topical cream 1 applic topical QHS skin 01/11/23 nicotine 10 mg inhalation cartridge (Nicotrol) 1 inh inhalation Q4H PRN nicotine cravings 01/11/23 sennosides 8.6 mg tablet (senna) 17.2 mg PO DAILY 01/11/23 azithromycin 500 mg tablet 500 mg PO QHS 30 days #30 tabs 01/18/23 food supplemt, lactose-reduced 0.08 gram-1.5 kcal/mL oral liquid (Ensure Plus High Protein) 120 ml PO 4X/DAY #0 mL 01/18/23 metoclopramide HCl 5 mg tablet (Reglan) 5 mg PO Q6H 30 days #120 tabs 01/18/23 pantoprazole 20 mg tablet,delayed release (Protonix) 40 mg (2 x 20 mg) PO BID #30 tabs 01/18/23 polyethylene glycol 3350 17 gram/dose oral powder (ClearLax) 17 g PO BID #510 grams 01/18/23
== END 2023-01-18 14:22 | disposition intermediate care facility (04) | DRG 689 ==
LOC: ED 13:19 → MS3 15:08
PROVIDERS: Anesthesiology; Internal Medicine Gastroenterology; Student in an Organized Health Care Education/Training Program; Admitting Provider Hospitalist; Emergency Provider Emergency Medicine; PCP Family Medicine; Visit Provider Internal Medicine
PROC: 0DJ08ZZ Inspection of Upper Intestinal Tract, Via Natural or Artificial Opening Endoscopic (ICD-10-PCS; CPT 43235; principal; 2023-01-13 11:55)
DX: N39.0 Urinary tract infection, site not specified (principal); K25.0 Acute gastric ulcer with hemorrhage; K31.1 Adult hypertrophic pyloric stenosis; K56.7 Ileus, unspecified; K31.0 Acute dilatation of stomach; B37.9 Candidiasis, unspecified; E11.51 Type 2 diabetes mellitus with diabetic peripheral angiopathy without gangrene; F01.50 Vascular dementia, unspecified severity, without behavioral disturbance, psychotic disturbance, mood disturbance, and anxiety; G40.909 Epilepsy, unspecified, not intractable, without status epilepticus; F31.9 Bipolar disorder, unspecified; J44.9 Chronic obstructive pulmonary disease, unspecified; E11.43 Type 2 diabetes mellitus with diabetic autonomic (poly)neuropathy; D64.9 Anemia, unspecified; I10 Essential (primary) hypertension; K31.84 Gastroparesis; E78.5 Hyperlipidemia, unspecified; K21.00 Gastro-esophageal reflux disease with esophagitis, without bleeding; F17.200 Nicotine dependence, unspecified, uncomplicated; E86.0 Dehydration; K29.70 Gastritis, unspecified, without bleeding; R14.0 Abdominal distension (gaseous); K59.81 Ogilvie syndrome; K59.00 Constipation, unspecified; Z79.84 Long term (current) use of oral hypoglycemic drugs; Z79.02 Long term (current) use of antithrombotics/antiplatelets; Z79.01 Long term (current) use of anticoagulants; Z79.899 Other long term (current) drug therapy; B95.62 Methicillin resistant Staphylococcus aureus infection as the cause of diseases classified elsewhere; Z86.73 Personal history of transient ischemic attack (TIA), and cerebral infarction without residual deficits; Z86.718 Personal history of other venous thrombosis and embolism; Y82.9 Unspecified medical devices associated with adverse incidents
CPT/HCPCS: 36415; 36592; 74018; 74176; 74177; 80048; 80053; 80202; 81001; 82607; 82746; 82962; 83540; 83550; 83605; 84134; 84439; 84443; 84540; 85025; 85730; 87040; 87086; 87088; 88305; 88342; 97110; 97140; 97162; 97166; 97802; 97803; 99285; J7030; J7040; J7050; J7120; Q9967; A4216; J2405; J2916

== ENCOUNTER → 2023-10-20 | Outpatient (CLI) | payer MEDICARE, MEDICAID, SELFPAY ==
--- NOTE | 2023-10-20 15:10 | CT_ITS ---
STUDY: CT ABDOMEN AND PELVIS WITHOUT CONTRAST REASON FOR EXAM: Male, 62 years old. Abdominal pain RADIATION DOSAGE (If Supplied By Facility): CTDIvol = ( 20.46 ) mGy, DLP = ( 1114.30 ) mGycm TECHNIQUE: Transaxial images were obtained from the dome of the diaphragm to the symphysis pubis without oral contrast, and without intravenous contrast. Sagittal and coronal images were reconstructed. Individualized dose optimization techniques were used for this CT. COMPARISON: Comparison is made with prior study dated January 17, 2023. FINDINGS: The visualized lung bases are unremarkable. The visualized portions of the heart are within normal limits. Normal liver. There are multiple small gallstones. Normal spleen. Normal pancreas. Normal bilateral adrenal glands. Normal right kidney. Normal left kidney. Normal visualized stomach. Normal small intestine. Dense material is seen in the rectum. Circumferential wall thickening of the rectum. Normal abdominal aorta. Normal inferior vena cava. Normal retroperitoneum. A Ricci catheter seen within an empty bladder. There are prostatic calcifications. Normal abdominal wall. There are diffuse degenerative changes of the visualized lumbar spine. CT/Abdomen/Pelvis without Cont IMPRESSION: Dense fecal material seen in the rectum. Circumferential wall thickening of the rectum. Electronically Signed: Andrew Clark MD at 15:33 EDT ,
== END | disposition home or self-care (01) ==
LOC: CT 14:30
PROVIDERS: PCP Family Medicine; Referring Provider Internal Medicine Gastroenterology; Visit Provider Internal Medicine Gastroenterology
DX: K59.00 Constipation, unspecified (principal); K31.84 Gastroparesis
CPT/HCPCS: 74176

== ENCOUNTER 2023-11-08 09:46 | Day surgery (SDC) | payer MEDICARE, MEDICAID, SELFPAY ==
[2023-11-08] VITALS (9 sets, daily range): BP systolic 108–131; BP diastolic 66–83; PULSE 75–78; RESP 16; TEMP 36–36.9; O2SAT 93–97; BMI 33.1
--- NOTE | 2023-11-08 11:27 | PCM.PRE.AN2 ---
ASA Classification* ASA Classification ASA Classification: 3 Assessment & Plan Anesthesia* Anesthesia Assessment Anesthesia Assessment: Discussed sedation and/or anesthesia options, risks, benefits, and alternatives with patient/parents/legal guardian/POA. Questions invited. The patient/parents/legal guardian/POA seems to understand and agrees to proceed with anesthesia plan. Reviewed the physical assessment, medical history, allergy history and patient home medications list prior to surgery/procedure/anesthetic and documented any changes. Performed airway and anesthesia risk assessments. Anesthesia Type Anesthesia Type: MAC Pre-Assessment Diagnosis/Proposed Procedure Planned Operative Procedure(s): COLONOSCOPY Anesthesia History Anesthesia History - clinical account executive: Anesthesia History - clinical account executive Hx Hospitalization No 11/06/23 13:35 Any Problems With Anesthesia No 11/06/23 13:35 Cholinesterase deficiency No 11/06/23 13:35 You/Your Family Experience No 11/06/23 13:35 fever (hyperthermia) with Relationship Recent Exposure to Contagious No 11/08/23 10:31 Disease Does patient have nerve No 11/06/23 13:35 stimulator Patient instructed to have device shut off --Does patient have Pacemaker No 11/08/23 10:31 or ICD? When Was Last Pacemaker Check QUESTION #4 FULL TEXT: You/Your Family Experience fever (hyperthermia) with Anesthesia Last Oral Intake Last Oral intake: Last Oral Intake NPO since 00:00 11/08/23 10:31 Meds taken in AM with sips of Yes 11/08/23 10:31 water? Meds patient instructed to SEE MAR 11/08/23 10:31 take am of surgery PONV PONV - clinical account executive: PONV - clinical account executive Female No 11/06/23 13:35 HX of Motion Sickness No 11/06/23 13:35 HX of N/V After Surgery No 11/06/23 13:35 Non-Smoker No 11/06/23 13:35 Duration of Surgery greater No 11/06/23 13:35 than 60 minutes Number of Risk Factors PONV Score Height & Weight Height & Weight: Anesthesia: Height & Weight Height 5 ft 4 in 11/08/23 10:31 Weight: 87.543 kg 11/08/23 10:31 Body Mass Index (BMI) 33.1 11/08/23 10:31 Respiratory Assessment Respiratory Assessment - clinical account executive: Respiratory Tract Infection Hx - clinical account executive Hx Respiratory Tract Infection No 11/06/23 13:35 STOP Sleep Apnea STOP Sleep Apnea - clinical account executive: STOP Sleep Apnea - clinical account executive Hx Hypertension No 11/06/23 13:35 Hx Sleep Apnea No 11/06/23 13:35 CPAP BIPAP Do you snore loudly (louder No 11/06/23 13:35 than talking or can be heard Do you often feel tired/ No 11/06/23 13:35 fatigued/ sleepy during daytime? Has anyone observed you stop No 11/06/23 13:35 breathing during sleep? STOP Results Negative 11/06/23 13:35 QUESTION #5 FULL TEXT : Do you snore loudly (louder than talking or can be heard through closed doors)? Tobacco Use History Tobacco Use History - clinical account executive: Tobacco Use History - clinical account executive Tobacco Use Smoking Status Light Smoker (<10/day) 11/06/23 13:35 Hx Tobacco Use Yes 11/06/23 13:35 Years Smoking Packs Smoked per Day Smoking Cessation Date was within the last 15 years Hx Smoking Cessation Date Hx Smoking Cessation Counseling Hematologic Medial History Hematologic Hx - clinical account executive: Hematologic Medical Hx - clinical documentation spec Hx of Blood Transfusion Yes 11/06/23 13:35 Hx of Transfusion in last 3 No 11/06/23 13:35 Months Date of Last Transfusion (if within last 3 months) Ever experience any problems No 11/06/23 13:35 with transfusion(s)? Specify any problems Hx of Preganancy in last 3 N/A 11/06/23 13:35 Months Nurse Filling Out Transfusion DSCHRIBER 11/06/23 13:35 & Questions: Date: 11/06/23 11/06/23 13:35 Time: 13:36 11/06/23 13:35 Patient unable to answer at this time (ie. confused, unrespo /Reproduction History /Reproductive History - clinical account executive: /Reproductive Hx- clinical account executive Hx Now No 11/06/23 13:35 Gestational Age (in weeks): EDC: Hx Hx Para Hx Section SAB No 11/06/23 13:35 Active Medications Active Medications: Current Medications Generic Name Dose Route Start Last Admin Trade Name Freq PRN Reason Stop Dose Admin Lactated Ringer's 1,000 mls @ 15 mls/hr 11/08/23 10:15 IV .Q48H ZI Anesthesia Focused Assessment* Temperature: 98.5 F Pulse Rate: 78 Blood Pressure: 129/77 Respiratory Rate: 16 Pulse Ox: 97 Airway Assessment Mouth opens: >3 cm Mallampati Score: III Focused Labs Anesthesia Preop lab: CBC WBC 10.9 K/mm3 (4.4-11.0) 01/18/23 06:05 RBC 3.64 M/mm3 (4.6-6.2) L 01/18/23 06:05 Hgb 10.2 g/dL (13.0-16.5) L 01/18/23 06:05 Hct 32.2 % (40-54) L 01/18/23 06:05 Plt Count 484 K/mm3 (150-450) H 01/18/23 06:05 CHEMISTRY Potassium 4.2 mmol/L (3.5-5.1) 01/18/23 06:05 Sodium 134 mmol/L (136-145) L 01/18/23 06:05 BUN 5 mg/dL (7-18) L 01/18/23 06:05 Creatinine 0.83 mg/dL (0.70-1.30) 01/18/23 06:05 Glucose 123 mg/dL (74-106) H 01/18/23 06:05 TSH 0.60 uIU/mL (0.358-3.74) 01/13/23 09:15 COAG Review of Systems (Anesthesia) ROS Narrative System reviewed and no additional complaints, except as documented. COUNTS INCLUDE 234 BEDS AT THE [facility] Medical History Discoloration of skin Uses wheelchair Lives in fpc Failure of outpatient treatment Difficult intravenous access History of renal disease Anemia DVT (deep venous thrombosis) Restless legs Seizures Stroke/cerebrovascular accident Smoker Shortness of breath on exertion History of pain when walking History of edema Erosive esophagitis Gastroparesis Vascular dementia Lymphedema Glaucoma HTN (hypertension) Hypothyroid Aphasia PVD (peripheral vascular disease) Hearing loss Hyperlipidemia DM II (diabetes mellitus, type II), controlled Epilepsy GERD (gastroesophageal reflux disease) Intracranial injury COPD (chronic obstructive pulmonary disease) MDD (major depressive disorder) Bipolar disorder Alcohol-induced amnesia Postconcussional syndrome Home Medications ?Medication ?Instructions ?Recorded ?Last Taken ?Type cholecalciferol (vitamin D3) 10 10 mcg PO DAILY SUPPLEMENT 06/03/21 08/04/21 History mcg (400 unit) capsule cilostazol 100 mg tablet 100 mg PO BID MUSCLE CRAMPS 06/03/21 08/04/21 History fluticasone propionate 50 1 spray intranasal QHS 06/03/21 08/04/21 History mcg/actuation nasal spray,suspension (Flonase Allergy Relief) ramipril 2.5 mg capsule 2.5 mg PO QHS 06/03/21 08/03/21 History atorvastatin 20 mg tablet 20 mg PO QHS CHOLESTEROL 08/04/21 08/03/21 22:00 History bisacodyl 5 mg tablet,delayed 5 mg PO QHS PRN constipation 08/04/21 08/03/21 History release carbamazepine 100 mg 100 mg PO QHS SEIZURES 08/04/21 08/03/21 History capsule,extended release [id number] carbamazepine 100 mg 200 mg PO DAILY SEIZURES 08/04/21 08/04/21 History tablet,extended release,12 hr flaxseed oil 1,000 mg capsule 1,000 mg PO DAILY 08/04/21 08/04/21 History furosemide 20 mg tablet 20 mg PO DAILY 08/04/21 08/04/21 History gabapentin 300 mg capsule 300 mg PO Q6H 08/04/21 08/03/21 History (Neurontin) metformin 1,000 mg tablet 1,000 mg PO BID 08/04/21 08/04/21 History potassium chloride 10 mEq 10 meq PO DAILY 08/04/21 Unknown History capsule,extended release vitamin B complex 1 cap PO DAILY 08/04/21 08/04/21 History zinc acetate 25 mg (zinc) capsule 25 mg PO DAILY 08/04/21 08/04/21 History bisacodyl 5 mg PO DAILY 01/11/23 Unknown History citric ac 1980.6 mg-glucono 59.4 30 ml irrigation TID 01/11/23 Unknown History mg-mag carb 980.4 mg/30 mL irrig.soln (Renacidin) denosumab 60 mg/mL subcutaneous 60 mg subcut .q 6 months 01/11/23 Unknown History syringe (Prolia) lidocaine HCl 4 % topical patch 1 patch topical DAILY 01/11/23 Unknown History mometasone 0.1 % topical cream 1 applic topical QHS PRN PRN skin 01/11/23 01/10/23 History nicotine 10 mg inhalation 1 inh inhalation Q4H PRN nicotine 01/11/23 Unknown History cartridge (Nicotrol) cravings sennosides 8.6 mg tablet (senna) 17.2 mg PO DAILY 01/11/23 Unknown History food supplemt, lactose-reduced 120 ml PO 4X/DAY #0 mL 01/18/23 Unknown Rx 0.08 gram-1.5 kcal/mL oral liquid (Ensure Plus High Protein) metoclopramide HCl 5 mg tablet 5 mg PO Q6H 30 days #120 tabs 01/18/23 Unknown Rx (Reglan) pantoprazole 20 mg tablet,delayed 40 mg (2 x 20 mg) PO BID #30 tabs 01/18/23 Unknown Rx release (Protonix) apixaban 5 mg tablet (Eliquis) 5 mg PO BID 10/09/23 11/04/23 History acetaminophen 500 mg tablet 1,000 mg PO TID 11/06/23 Unknown History (Acetaminophen Pain Relief) capsicum (cayenne) 447 mg capsule 894 mg PO QHS 11/06/23 11/05/23 History meloxicam 7.5 mg tablet 7.5 mg PO DAILY 11/06/23 Unknown History ondansetron HCl 4 mg tablet 4 mg PO Q8H PRN PRN nausea and 11/06/23 Unknown History vomiting polyethylene glycol 3350 17 17 g PO DAILY 11/06/23 Unknown History gram/dose oral powder (ClearLax) sodium chloride 1 gram tablet 1,000 mg PO BID 11/06/23 Unknown History Allergy/AdvReac Type Severity Reaction Status Date / Time codeine Allergy Intermediate unknown Verified 11/08/23 10:30 lorazepam Allergy Intermediate unknown Verified 11/08/23 10:30 morphine Allergy Intermediate unknown Verified 11/08/23 10:30 Sulfa (Sulfonamide Allergy Intermediate unknown Verified 11/08/23 10:30 Antibiotics) oregano AdvReac Intermediate PT UNSURE Verified 11/08/23 10:30 OF REACTION Surgical History History of placement of ear tubes Social History Smoking Status: Light Smoker (<10/day)
[2023-11-08 11:51] LABS: Bedside Glucose 121 mg/dL (74-106)
[2023-11-08] MEDS: Lactated Ringers 1,000 ML 15 ML IV (13:00)
--- NOTE | 2023-11-08 13:22 | HP.PCM_ITS ---
History and Physical Date of Admission: 11/08/23 62 M who presents to the office today for follow up. [facility] TBI, COVID GI [facility] [place] 04.28.21 for evaluation of vomiting with concern for gastric outlet obstruction; abnormal CT abd/pel and elevated LFT. CT abd/pel 04.25.21 markedly distended stomach with tapering at pylorus without mass; filling defect of distal left common iliac vein extending into left leg with left leg edema, DVT; small right pleural effusion; suspect cholelithiasis EGD 04.27.21 LA Grade C esophagitis; retained food in upper stomach with excessive fluid/bile in stomach; gastritis; patent pylorus. *BGI established 06.03.21 with N/V; family member feels he is doing better than previously. Reports 60lbs weight loss with large component being of water weight. Continue PPI, possible GET. ? EGD 08.05.21 two non-bleeding cratered gastric ulcers; gastritis ? During procedure it was discovered he had DVT in all extremities making IV access difficult. Admitted to PCU for US and workup; discharged same day back to [facility]. OV 4..22 doing well at this time without symptoms of concern. Increase Carafate to TID rather than reglan therapy. ? GET OSH 5.. rapid gastric emptying OV 5..22 continues to be doing well at this time. Decrease PPI to 20mg QD. OV 01.18. doing well overall; continues to have clotting difficulty. Hoping to have clearance from GI to start anticoagulation therapy. Increase PPI to 20mg BID OV 12 doing well; recent urethra infection with ATB use and subsequent refusal of medications. Would like PPI only QD. Eliquis currently 5mg QD OV 6 doing well; continue current medications [facility] hospitalization 01.11.23-01.18.23 for management of gastric outlet obstruction r/t PUD with acute distention of stomach, GERD and gastric ulcer with UTI and other chronic management. Recommend blood thinners be held r/t ongoing PUD. EGD 01.13.23 LA Grade C esophagitis; three non-bleeding cratered gastric ulcers; gastritis; benign moderate pyloric stenosis, traversed, pyloric balloon dilation 20mm with moderate improvement. H.pylori neg CT abd/pel 01.17.23 renal atrophy; colonic gaseous distention with blind ending proximally with collapsed rectal lumen and moderate edema rectum through anus, concern for volvus versus elongated/redundant colon with inflammation. CT abd/pel rectal contrast only 01.17.23 descending/RS colons elongated and swings to right of midline; moderate circumferential edema and thickening of rectum through anus, proctitis/nonspecific colitis. No stenosis or fecal impaction. Contact from cardiology 02.02.23 asking to resume anticoagulation because and additional clot has been found. OK to restart from a GI perspective; monitor hemoglobin; continue PPI BID and sucralfate as long-term medications. OV 04.05.23 sister feels he is doing well. She has concerns regarding H&H. Chacorta reports that he is feeling well. Contact 04.18.23 OV 10.09.23 Exam Const General: cooperative and comfortable Orientation: alert and awake Other: in wheelchair Assessment and Plan Assessment and Plan (1) GERD (gastroesophageal reflux disease): Status: Chronic Qualifiers: Esophagitis presence: with esophagitis Esophagitis bleeding: without hemorrhage Qualified Code(s): K21.00 - Gastro-esophageal reflux disease with esophagitis, without bleeding (2) Gastroparesis: Status: Chronic Plan: Gastroparesis identified as gastric stomach during his upper endoscopy. Study due to noncompliance and inability to comprehend how to do the test. Is not on at this time. I suspect it is from diabetes which has been under better control. (3) GIB (gastrointestinal bleeding): Status: Chronic (4) Gastric ulcer: Status: Acute Qualifiers: Gastric ulcer chronicity: acute Gastric ulcer complication status: with hemorrhage Qualified Code(s): K25.0 - Acute gastric ulcer with hemorrhage Plan: He is not have any signs or symptoms of GI bleeding since being on Protonix 40mg/day. His sister would like to decrease his Protonix down to once a day. I think that is reasonable because his hemoglobin has been stable and he has not had any signs of upper or lower GI bleeding at this time. He will continue on 40 mg once a day Protonix for the next 6 months. (5) Erosive esophagitis: Status: Acute Plan: He has not needed to take anything extra to supplement Protonix. We will see how he does on the increased dose of once a day. (6) Anemia: Status: Acute Plan: His sister is concerned that his hemoglobin is only 10 and his hematocrit remains at 30%. We will get iron studies including iron, TIBC, ferritin, reticulocyte count, LDH, transferrin saturation, B12, folic acid, TSH and celiac profile. (7) Constipation: Status: Acute Plan: He has good bowel sounds, but he has history of bowel obstruction. More constipated lately. I will put him on MiraLAX twice a day and order CT scan of the abdomen and pelvis to evaluate his lower GI tract he also has a history of gastroparesis which contributes to his constipation. Abdomen is protuberant but it is not tympanic and he does have good bowel sounds. I suspect that this is obstipation more than constipation. We will also get a colonoscopy to evaluate his lower GI tract for his persistent anemia. I have examined the patient and the H&P has been reviewed. There are no clinical changes since date of exam. Charges/Coding Visit Charges Inpatient E&M: 27326 Subs Hosp L3
--- NOTE | 2023-11-08 13:36 | OP.CCLET_ITS ---
11/08/2023 Gene Cr Re : Colonoscopy procedure for Chacorta Edwards Dear Shaye This procedure was performed on Wednesday, November 08, 2023. My impressions and recommendations are as follows: Impressions : - Preparation of the colon was unsatisfactory. - Stool in the rectum, in the recto-sigmoid colon, in the sigmoid colon, in the descending colon and at the splenic flexure. - No specimens collected. Recommendations : - Return patient to referring hospital for ongoing care. - Repeat colonoscopy at next available appointment (within 3 months) because the bowel preparation was suboptimal. -2 days of clear liquid with 2 days of prep for colonoscopy - Continue present medications. My findings are described in the full procedure note, which is enclosed. If I can be of further assistance, please feel free to contact me at . Sincerely, Jhonatan Walker, 11/08/2023 1:35:36 PM This report has been signed electronically.
--- NOTE | 2023-11-08 13:36 | OP.COLON_ITS ---
Patient Name: Chacorta Edwards Procedure Date: 11/08/2023 12:53 PM Date of : 1960 Age: 62 Procedure: Colonoscopy Indications: Iron deficiency anemia, Abnormal CT of the GI tract, Incidental change in bowel habits noted Providers: Jhonatan Walker DO Medicines: Monitored Anesthesia Care Patient Profile: This is a 62 year old male. Refer to note in patient chart for documentation of history and physical. Last Colonoscopy: date unknown. Unable to locate last colonoscopy report. Complications: No immediate complications. Procedure: Pre-Anesthesia Assessment: - Prior to the procedure, a History and Physical was performed, and patient medications and allergies were reviewed. The patient is competent. The risks and benefits of the procedure and the sedation options and risks were discussed with the patient. All questions were answered and informed consent was obtained. Patient identification and proposed procedure were verified by the physician in the pre-procedure area. Mental Status Examination: alert and oriented. Airway Examination: normal oropharyngeal airway and neck mobility. Respiratory Examination: clear to auscultation. CV Examination: normal. Prophylactic Antibiotics: The patient does not require prophylactic antibiotics. Prior Anticoagulants: The patient has taken no anticoagulant or antiplatelet agents. After reviewing the risks and benefits, the patient was deemed in satisfactory condition to undergo the procedure. The anesthesia plan was to use monitored anesthesia care (MAC). Immediately prior to administration of medications, the patient was re-assessed for adequacy to receive sedatives. The heart rate, respiratory rate, oxygen saturations, blood pressure, adequacy of pulmonary ventilation, and response to care were monitored throughout the procedure. The physical status of the patient was re-assessed after the procedure. After I obtained informed consent, the scope was passed under direct vision. Throughout the procedure, the patient's blood pressure, pulse, and oxygen saturations were monitored continuously. The Colonoscope was introduced through the anus with the intention of advancing to the cecum. The scope was advanced to the splenic flexure before the procedure was aborted. Medications were given. The colonoscopy was performed without difficulty. The patient tolerated the procedure well. The quality of the bowel preparation was unsatisfactory. Scope In: 1:27:38 PM Scope Out: 1:29:48 PM Total Procedure Duration Time 0 hours 2 minutes 10 seconds Findings: The perianal and digital rectal examinations were normal. Pertinent negatives include normal sphincter tone. Copious quantities of liquid semi-liquid semi-solid solid stool was found in the rectum, in the recto-sigmoid colon, in the sigmoid colon, in the descending colon and at the splenic flexure, precluding visualization. Impression: - Preparation of the colon was unsatisfactory. - Stool in the rectum, in the recto-sigmoid colon, in the sigmoid colon, in the descending colon and at the splenic flexure. - No specimens collected. Recommendation: - Return patient to referring hospital for ongoing care. - Repeat colonoscopy at next available appointment (within 3 months) because the bowel preparation was suboptimal. -2 days of clear liquid with 2 days of prep for colonoscopy - Continue present medications. Procedure Code(s): --- Professional --- 87321, 53, Colonoscopy, flexible; diagnostic, including collection of specimen(s) by brushing or washing, when performed (separate procedure) CPT copyright 2021 [employer]. All rights reserved. The codes documented in this report are preliminary and upon radiation oncology nurse review may be revised to meet current compliance requirements. Jhonatan Walker DO 11/08/2023 1:35:36 PM This report has been signed electronically. Number of Addenda: 0 Note Initiated On: 11/08/2023 12:53 PM
--- NOTE | 2023-11-08 13:43 | PCM.POST.ANE ---
Anesthesia: Postop Eval I Current Vital Signs Temperature: 97 F Pulse Rate: 77 Blood Pressure: 108/83 Respiratory Rate: 16 Pulse Ox: 94 Oxygen Delivery Method: Room Air Assessment Airway patent: Yes Spontaneous unlabored respirations: Yes Mental status: Awake nausea: No Vomiting: No Anesthesia Complication: No Fluid Hydration Crystalloid volume administer (ml): 400 Total IV fluid infused: 400 Progress Note Anesthesia document: Postop Eval 1 completed: Yes
--- NOTE | 2023-11-08 14:51 | PCM.POSTANE2 ---
Anesthesia Postop Eval I Sum Postop Eval Completion status Anesthesia document: Postop Eval 1 completed: Yes Anesthesia Postop Eval I Summary Anesthesia Postop Eval I Summary: Anesthesia Postop Eval I: Assessment Summary Airway patent Yes 11/08/23 13:57 [email or web address] Spontaneous unlabored Yes 11/08/23 13:57 [email or web address] respirations Mental status Awake 11/08/23 13:57 [email or web address] nausea No 11/08/23 13:57 [email or web address] Vomiting No 11/08/23 13:57 [email or web address] Anesthesia Postop Eval I: Fluid Summary Crystalloid volume administer 400 11/08/23 13:57 [email or web address] (ml) Colloids volume administered ( ml) Blood Product volume administered (ml) Total IV fluid infused 400 11/08/23 13:57 [email or web address] Anesthesia Postop Eval I: Summary Notes Anesthesia Complication No 11/08/23 13:57 [email or web address] Anesthesia Complication Comment: Post-operative progress note Anesthesia: Postop Eval II Evaluation Mental status: Awake and Calm Pain Level: 0 nausea: No Vomiting: No Progress Note Post-operative progress note: Patient noted to be much calmer postoperatively than preop Complications Anesthesia Complication: No
== END 2023-11-08 14:43 | disposition home or self-care (01) ==
LOC: EN 09:50 → AC 09:52
PROVIDERS: PCP Family Medicine; Referring Provider Family Medicine; Visit Provider Internal Medicine Gastroenterology
PROC: 0DJD8ZZ Inspection of Lower Intestinal Tract, Via Natural or Artificial Opening Endoscopic (ICD-10-PCS; CPT 45378; principal; 2023-11-08 11:10)
DX: Z53.09 Procedure and treatment not carried out because of other contraindication (principal); E11.43 Type 2 diabetes mellitus with diabetic autonomic (poly)neuropathy; K21.00 Gastro-esophageal reflux disease with esophagitis, without bleeding; D50.9 Iron deficiency anemia, unspecified; K31.84 Gastroparesis; K25.0 Acute gastric ulcer with hemorrhage; K22.10 Ulcer of esophagus without bleeding; Z79.01 Long term (current) use of anticoagulants; Z79.899 Other long term (current) drug therapy; Z79.84 Long term (current) use of oral hypoglycemic drugs; Z86.718 Personal history of other venous thrombosis and embolism
CPT/HCPCS: 45378; 82962; J7120; J2405

== ENCOUNTER 2023-12-27 05:59 | Day surgery (SDC) | payer MEDICARE, MEDICAID, SELFPAY ==
[2023-12-27] VITALS (8 sets, daily range): BP systolic 123–159; BP diastolic 65–86; PULSE 64–76; RESP 14–16; TEMP 36.1–36.7; O2SAT 94–99; BMI 31.1
[2023-12-27] MEDS: Lactated Ringers 1,000 ML 15 ML IV (06:15)
[2023-12-27 08:08] LABS: Bedside Glucose 138 mg/dL (74-106)
--- NOTE | 2023-12-27 08:40 | HP.PCM_ITS ---
History and Physical Date of Admission: 12/27/23 62 M who presents to the office today for follow up. [facility] TBI, COVID GI [facility] [place] 04.28.21 for evaluation of vomiting with concern for gastric outlet obstruction; abnormal CT abd/pel and elevated LFT. CT abd/pel 04.25.21 markedly distended stomach with tapering at pylorus without mass; filling defect of distal left common iliac vein extending into left leg with left leg edema, DVT; small right pleural effusion; suspect cholelithiasis EGD 04.27.21 LA Grade C esophagitis; retained food in upper stomach with excessive fluid/bile in stomach; gastritis; patent pylorus. *BGI established 06.03.21 with N/V; family member feels he is doing better than previously. Reports 60lbs weight loss with large component being of water weight. Continue PPI, possible GET. ? EGD 08.05.21 two non-bleeding cratered gastric ulcers; gastritis ? During procedure it was discovered he had DVT in all extremities making IV access difficult. Admitted to PCU for US and workup; discharged same day back to [facility]. OV 4..22 doing well at this time without symptoms of concern. Increase Carafate to TID rather than reglan therapy. ? GET OSH 5.. rapid gastric emptying OV 5..22 continues to be doing well at this time. Decrease PPI to 20mg QD. OV 01.18. doing well overall; continues to have clotting difficulty. Hoping to have clearance from GI to start anticoagulation therapy. Increase PPI to 20mg BID OV 12 doing well; recent urethra infection with ATB use and subsequent refusal of medications. Would like PPI only QD. Eliquis currently 5mg QD OV 6 doing well; continue current medications [facility] hospitalization 01.11.23-01.18.23 for management of gastric outlet obstruction r/t PUD with acute distention of stomach, GERD and gastric ulcer with UTI and other chronic management. Recommend blood thinners be held r/t ongoing PUD. EGD 01.13.23 LA Grade C esophagitis; three non-bleeding cratered gastric ulcers; gastritis; benign moderate pyloric stenosis, traversed, pyloric balloon dilation 20mm with moderate improvement. H.pylori neg CT abd/pel 01.17.23 renal atrophy; colonic gaseous distention with blind ending proximally with collapsed rectal lumen and moderate edema rectum through anus, concern for volvus versus elongated/redundant colon with inflammation. CT abd/pel rectal contrast only 01.17.23 descending/RS colons elongated and swings to right of midline; moderate circumferential edema and thickening of rectum through anus, proctitis/nonspecific colitis. No stenosis or fecal impaction. Contact from cardiology 02.02.23 asking to resume anticoagulation because and additional clot has been found. OK to restart from a GI perspective; monitor hemoglobin; continue PPI BID and sucralfate as long-term medications. OV 04.05.23 sister feels he is doing well. She has concerns regarding H&H. Chacorta reports that he is feeling well. Contact 04.18.23 OV 10.09.23 Exam Const General: cooperative and comfortable Orientation: alert and awake Other: in wheelchair Assessment and Plan Assessment and Plan (1) GERD (gastroesophageal reflux disease): Status: Chronic Qualifiers: Esophagitis presence: with esophagitis Esophagitis bleeding: without hemorrhage Qualified Code(s): K21.00 - Gastro-esophageal reflux disease with esophagitis, without bleeding (2) Gastroparesis: Status: Chronic Plan: Gastroparesis identified as gastric stomach during his upper endoscopy. Study due to noncompliance and inability to comprehend how to do the test. Is not on at this time. I suspect it is from diabetes which has been under better control. (3) GIB (gastrointestinal bleeding): Status: Chronic (4) Gastric ulcer: Status: Acute Qualifiers: Gastric ulcer chronicity: acute Gastric ulcer complication status: with hemorrhage Qualified Code(s): K25.0 - Acute gastric ulcer with hemorrhage Plan: He is not have any signs or symptoms of GI bleeding since being on Protonix 40mg/day. His sister would like to decrease his Protonix down to once a day. I think that is reasonable because his hemoglobin has been stable and he has not had any signs of upper or lower GI bleeding at this time. He will continue on 40 mg once a day Protonix for the next 6 months. (5) Erosive esophagitis: Status: Acute Plan: He has not needed to take anything extra to supplement Protonix. We will see how he does on the increased dose of once a day. (6) Anemia: Status: Acute Plan: His sister is concerned that his hemoglobin is only 10 and his hematocrit remains at 30%. We will get iron studies including iron, TIBC, ferritin, reticulocyte count, LDH, transferrin saturation, B12, folic acid, TSH and celiac profile. (7) Constipation: Status: Acute Plan: He has good bowel sounds, but he has history of bowel obstruction. More constipated lately. I will put him on MiraLAX twice a day and order CT scan of the abdomen and pelvis to evaluate his lower GI tract he also has a history of gastroparesis which contributes to his constipation. Abdomen is protuberant but it is not tympanic and he does have good bowel sounds. I suspect that this is obstipation more than constipation. We will also get a colonoscopy to evaluate his lower GI tract for his persistent anemia. I have examined the patient and the H&P has been reviewed. There are no clinical changes since date of exam.
--- NOTE | 2023-12-27 09:02 | OP.COLON_ITS ---
Patient Name: Chacorta Edwards Procedure Date: 12/27/2023 8:31 AM Date of : 1960 Age: 63 Procedure: Colonoscopy Indications: Generalized abdominal pain Providers: Jhonatan Walker DO Referring MD: Jhonatan Walker DO Medicines: Monitored Anesthesia Care Patient Profile: This is a 63 year old male. Refer to note in patient chart for documentation of history and physical. Last Colonoscopy: date unknown. Unable to locate last colonoscopy report. Complications: No immediate complications. Procedure: Pre-Anesthesia Assessment: - Prior to the procedure, a History and Physical was performed, and patient medications and allergies were reviewed. The patient is competent. The risks and benefits of the procedure and the sedation options and risks were discussed with the patient. All questions were answered and informed consent was obtained. Patient identification and proposed procedure were verified by the physician in the pre-procedure area. Mental Status Examination: alert and oriented. Airway Examination: normal oropharyngeal airway and neck mobility. Respiratory Examination: clear to auscultation. CV Examination: normal. Prophylactic Antibiotics: The patient does not require prophylactic antibiotics. Prior Anticoagulants: The patient has taken no anticoagulant or antiplatelet agents. ASA Grade Assessment: IV - A patient with severe systemic disease that is a constant threat to life. After reviewing the risks and benefits, the patient was deemed in satisfactory condition to undergo the procedure. The anesthesia plan was to use monitored anesthesia care (MAC). Immediately prior to administration of medications, the patient was re-assessed for adequacy to receive sedatives. The heart rate, respiratory rate, oxygen saturations, blood pressure, adequacy of pulmonary ventilation, and response to care were monitored throughout the procedure. The physical status of the patient was re-assessed after the procedure. After I obtained informed consent, the scope was passed under direct vision. Throughout the procedure, the patient's blood pressure, pulse, and oxygen saturations were monitored continuously. The Colonoscope was introduced through the anus and advanced to the sigmoid colon. The colonoscopy was performed with difficulty due to poor bowel prep with stool present. Successful completion of the procedure was aided by lavage. The patient tolerated the procedure well. The quality of the bowel preparation was 100 percent obscured. Scope In: 8:50:04 AM Scope Out: 8:51:56 AM Total Procedure Duration Time 0 hours 1 minute 52 seconds Findings: The perianal and digital rectal examinations were normal. Extensive amounts of liquid semi-liquid semi-solid solid stool was found in the rectum, in the recto-sigmoid colon and in the sigmoid colon, precluding visualization. Lavage of the area was performed, resulting in incomplete clearance with continued poor visualization. Impression: - Stool in the rectum, in the recto-sigmoid colon and in the sigmoid colon. - No specimens collected. Recommendation: - Discharge patient to home. - Resume previous diet. - Continue present medications. - No repeat colonoscopy. Procedure Code(s): --- Professional --- 52449, 53, Colonoscopy, flexible; diagnostic, including collection of specimen(s) by brushing or washing, when performed (separate procedure) CPT copyright 2021 [employer]. All rights reserved. The codes documented in this report are preliminary and upon medical record coder review may be revised to meet current compliance requirements. Jhonatan Walker DO 12/27/2023 9:02:20 AM This report has been signed electronically. Number of Addenda: 0 Note Initiated On: 12/27/2023 8:31 AM
--- NOTE | 2023-12-27 09:03 | OP.CCLET_ITS ---
12/27/2023 Gene Cr Re : Colonoscopy procedure for Chacorta Edwards Dear Shaye This procedure was performed on Wednesday, December 27, 2023. My impressions and recommendations are as follows: Impressions : - Stool in the rectum, in the recto-sigmoid colon and in the sigmoid colon. - No specimens collected. Recommendations : - Discharge patient to home. - Resume previous diet. - Continue present medications. - No repeat colonoscopy. My findings are described in the full procedure note, which is enclosed. If I can be of further assistance, please feel free to contact me at . Sincerely, Jhonatan Walker, 12/27/2023 9:02:20 AM This report has been signed electronically.
--- NOTE | 2023-12-27 09:18 | PCM.POST.ANE ---
Anesthesia: Postop Eval I Current Vital Signs Temperature: 97.9 F Pulse Rate: 67 Blood Pressure: 148/84 Respiratory Rate: 16 Pulse Ox: 99 Oxygen Delivery Method: Room Air Assessment Airway patent: Yes Spontaneous unlabored respirations: Yes Mental status: Awake nausea: No Vomiting: No Anesthesia Complication: No Fluid Hydration Crystalloid volume administer (ml): 800 Total IV fluid infused: 800 Progress Note Anesthesia document: Postop Eval 1 completed: Yes
--- NOTE | 2023-12-27 09:35 | PRE.ANES_ITS ---
ASA Classification* ASA Classification ASA Classification: 3 Assessment & Plan Anesthesia* Anesthesia Assessment Anesthesia Assessment: Discussed sedation and/or anesthesia options, risks, benefits, and alternatives with patient/parents/legal guardian/POA. Questions invited. The patient/parents/legal guardian/POA seems to understand and agrees to proceed with anesthesia plan. Reviewed the physical assessment, medical history, allergy history and patient home medications list prior to surgery/procedure/anesthetic and documented any changes. Performed airway and anesthesia risk assessments. Anesthesia Type Anesthesia Type: MAC (patient was seen at 645 am. echart not completed until 932 am because of iv difficult start an poor prep ) Anesthesia Focused Assessment* Temperature: 98.1 F Pulse Rate: 69 Blood Pressure: 147/74 Respiratory Rate: 14 Pulse Ox: 94 Airway Assessment Mouth opens: >3 cm Mallampati Score: II Focused Labs Anesthesia Preop lab: CBC WBC 10.9 K/mm3 (4.4-11.0) 01/18/23 06:05 RBC 3.64 M/mm3 (4.6-6.2) L 01/18/23 06:05 Hgb 10.2 g/dL (13.0-16.5) L 01/18/23 06:05 Hct 32.2 % (40-54) L 01/18/23 06:05 Plt Count 484 K/mm3 (150-450) H 01/18/23 06:05 CHEMISTRY Potassium 4.2 mmol/L (3.5-5.1) 01/18/23 06:05 Sodium 134 mmol/L (136-145) L 01/18/23 06:05 BUN 5 mg/dL (7-18) L 01/18/23 06:05 Creatinine 0.83 mg/dL (0.70-1.30) 01/18/23 06:05 Glucose 123 mg/dL (74-106) H 01/18/23 06:05 POC Glucose 138 mg/dL (74-106) H 12/27/23 06:35 TSH 0.60 uIU/mL (0.358-3.74) 01/13/23 09:15 COAG Pre-Assessment Diagnosis/Proposed Procedure Planned Operative Procedure(s): colonoscopy Anesthesia History Anesthesia History - order picker/assembler: Anesthesia History - order picker/assembler Hx Hospitalization No 11/06/23 13:35 Any Problems With Anesthesia No 11/06/23 13:35 Cholinesterase deficiency No 11/06/23 13:35 You/Your Family Experience No 11/06/23 13:35 fever (hyperthermia) with Relationship Recent Exposure to Contagious No 12/27/23 06:33 Disease Does patient have nerve No 11/06/23 13:35 stimulator Patient instructed to have device shut off --Does patient have Pacemaker No 12/27/23 06:39 or ICD? When Was Last Pacemaker Check QUESTION #4 FULL TEXT: You/Your Family Experience fever (hyperthermia) with Anesthesia Last Oral Intake Last Oral intake: Last Oral Intake NPO since 00:00 12/27/23 06:39 Meds taken in AM with sips of water? Meds patient instructed to take am of surgery PONV PONV - order picker/assembler: PONV - order picker/assembler Female HX of Motion Sickness HX of N/V After Surgery Non-Smoker Duration of Surgery greater than 60 minutes Number of Risk Factors PONV Score Height & Weight Height & Weight: Anesthesia: Height & Weight Height 5 ft 6 in 12/27/23 06:39 Weight: 87.634 kg 12/27/23 06:39 Body Mass Index (BMI) 31.1 12/27/23 06:39 Respiratory Assessment Respiratory Assessment - order picker/assembler: Respiratory Tract Infection Hx - order picker/assembler Hx Respiratory Tract Infection No 11/06/23 13:35 STOP Sleep Apnea STOP Sleep Apnea - order picker/assembler: STOP Sleep Apnea - order picker/assembler Hx Hypertension No 11/06/23 13:35 Hx Sleep Apnea No 12/27/23 09:25 CPAP BIPAP Do you snore loudly (louder than talking or can be heard Do you often feel tired/ fatigued/ sleepy during daytime? Has anyone observed you stop breathing during sleep? STOP Results QUESTION #5 FULL TEXT : Do you snore loudly (louder than talking or can be heard through closed doors)? 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 Specify any problems Hx of Preganancy in last 3 Months Nurse Filling Out Transfusion & Questions: Date: Time: Patient unable to answer at this time (ie. confused, unrespo /Reproduction History /Reproductive History - order picker/assembler: /Reproductive Hx- order picker/assembler Hx Now Gestational Age (in weeks): EDC: Hx Hx Para Hx Section SAB No 11/06/23 13:35 Active Medications Active Medications: Current Medications Generic Name Dose Route Start Last Admin Trade Name Freq PRN Reason Stop Dose Admin Lactated Ringer's 1,000 mls @ 15 mls/hr 12/27/23 06:15 12/27/23 09:25 IV Infused .Q48H ZI Infusion PFSH Medical History Discoloration of skin Uses wheelchair Lives in jail Failure of outpatient treatment Difficult intravenous access History of renal disease Anemia DVT (deep venous thrombosis) Restless legs Seizures Stroke/cerebrovascular accident Smoker Shortness of breath on exertion History of pain when walking History of edema Erosive esophagitis Gastroparesis Vascular dementia Lymphedema Glaucoma HTN (hypertension) Hypothyroid Aphasia PVD (peripheral vascular disease) Hearing loss Hyperlipidemia DM II (diabetes mellitus, type II), controlled Epilepsy GERD (gastroesophageal reflux disease) Intracranial injury COPD (chronic obstructive pulmonary disease) MDD (major depressive disorder) Bipolar disorder Alcohol-induced amnesia Postconcussional syndrome Home Medications ?Medication ?Instructions ?Recorded ?Last Taken ?Type cholecalciferol (vitamin D3) 10 10 mcg PO DAILY SUPPLEMENT 06/03/21 08/04/21 History mcg (400 unit) capsule cilostazol 100 mg tablet 100 mg PO BID MUSCLE CRAMPS 06/03/21 08/04/21 History fluticasone propionate 50 1 spray intranasal QHS 06/03/21 08/04/21 History mcg/actuation nasal spray,suspension (Flonase Allergy Relief) ramipril 2.5 mg capsule 2.5 mg PO QHS 06/03/21 08/03/21 History atorvastatin 20 mg tablet 20 mg PO QHS CHOLESTEROL 08/04/21 08/03/21 22:00 History bisacodyl 5 mg tablet,delayed 5 mg PO QHS PRN constipation 08/04/21 08/03/21 History release carbamazepine 100 mg 100 mg PO QHS SEIZURES 08/04/21 08/03/21 History capsule,extended release [id number] carbamazepine 100 mg 200 mg PO DAILY SEIZURES 08/04/21 12/27/23 History tablet,extended release,12 hr flaxseed oil 1,000 mg capsule 1,000 mg PO DAILY 08/04/21 08/04/21 History furosemide 20 mg tablet 20 mg PO DAILY 08/04/21 08/04/21 History gabapentin 300 mg capsule 300 mg PO Q6H 08/04/21 12/27/23 History (Neurontin) metformin 1,000 mg tablet 1,000 mg PO BID 08/04/21 08/04/21 History potassium chloride 10 mEq 10 meq PO DAILY 08/04/21 Unknown History capsule,extended release vitamin B complex 1 cap PO DAILY 08/04/21 08/04/21 History zinc acetate 25 mg (zinc) capsule 25 mg PO DAILY 08/04/21 08/04/21 History bisacodyl 5 mg PO DAILY 01/11/23 Unknown History citric ac 1980.6 mg-glucono 59.4 30 ml irrigation TID 01/11/23 Unknown History mg-mag carb 980.4 mg/30 mL irrig.soln (Renacidin) denosumab 60 mg/mL subcutaneous 60 mg subcut .q 6 months 01/11/23 Unknown History syringe (Prolia) lidocaine HCl 4 % topical patch 1 patch topical DAILY 01/11/23 Unknown History mometasone 0.1 % topical cream 1 applic topical QHS PRN PRN skin 01/11/23 History nicotine 10 mg inhalation 1 inh inhalation Q4H PRN nicotine 01/11/23 Unknown History cartridge (Nicotrol) cravings sennosides 8.6 mg tablet (senna) 17.2 mg PO DAILY 01/11/23 Unknown History food supplemt, lactose-reduced 120 ml PO 4X/DAY #0 mL 01/18/23 Unknown Rx 0.08 gram-1.5 kcal/mL oral liquid (Ensure Plus High Protein) metoclopramide HCl 5 mg tablet 5 mg PO Q6H 30 days #120 tabs 01/18/23 Unknown Rx (Reglan) pantoprazole 20 mg tablet,delayed 40 mg (2 x 20 mg) PO BID #30 tabs 01/18/23 12/27/23 Rx release (Protonix) apixaban 5 mg tablet (Eliquis) 5 mg PO BID 10/09/23 12/21/23 History acetaminophen 500 mg tablet 1,000 mg PO TID 11/06/23 Unknown History (Acetaminophen Pain Relief) capsicum (cayenne) 447 mg capsule 894 mg PO QHS 11/06/23 11/05/23 History meloxicam 7.5 mg tablet 7.5 mg PO DAILY 11/06/23 Unknown History ondansetron HCl 4 mg tablet 4 mg PO Q8H PRN PRN nausea and 11/06/23 Unknown History vomiting polyethylene glycol 3350 17 17 g PO DAILY 11/06/23 Unknown History gram/dose oral powder (ClearLax) sodium chloride 1 gram tablet 1,000 mg PO BID 11/06/23 Unknown History hydroxyzine pamoate 25 mg capsule 25 mg PO DAILY PRN anxiety 12/25/23 Unknown History Allergy/AdvReac Type Severity Reaction Status Date / Time codeine Allergy Intermediate unknown Verified 11/08/23 10:30 lorazepam Allergy Intermediate unknown Verified 11/08/23 10:30 morphine Allergy Intermediate unknown Verified 11/08/23 10:30 Sulfa (Sulfonamide Allergy Intermediate unknown Verified 11/08/23 10:30 Antibiotics) oregano AdvReac Intermediate PT UNSURE Verified 11/08/23 10:30 OF REACTION Surgical History History of placement of ear tubes Social History Smoking Status: Light Smoker (<10/day) Review of Systems (Anesthesia) ROS Narrative System reviewed and no additional complaints, except as documented.
--- NOTE | 2023-12-27 09:44 | PCM.POSTANE2 ---
Anesthesia Postop Eval I Sum Postop Eval Completion status Anesthesia document: Postop Eval 1 completed: Yes Anesthesia Postop Eval I Summary Anesthesia Postop Eval I Summary: Anesthesia Postop Eval I: Assessment Summary Airway patent Yes 12/27/23 09:18 [email or web address] Spontaneous unlabored Yes 12/27/23 09:18 [email or web address] respirations Mental status Awake 12/27/23 09:18 [email or web address] nausea No 12/27/23 09:18 [email or web address] Vomiting No 12/27/23 09:18 [email or web address] Anesthesia Postop Eval I: Fluid Summary Crystalloid volume administer 800 12/27/23 09:18 [email or web address] (ml) Colloids volume administered ( ml) Blood Product volume administered (ml) Total IV fluid infused 800 12/27/23 09:18 [email or web address] Anesthesia Postop Eval I: Summary Notes Anesthesia Complication No 12/27/23 09:18 [email or web address] Anesthesia Complication Comment: Post-operative progress note Anesthesia: Postop Eval II Evaluation Mental status: Awake Pain Level: 0 nausea: No Vomiting: No Complications Anesthesia Complication: No
== END 2023-12-27 10:24 | disposition home or self-care (01) ==
LOC: EN 06:04 → AC 06:05
PROVIDERS: PCP Family Medicine; Referring Provider Family Medicine; Visit Provider Internal Medicine Gastroenterology
PROC: 0DJD8ZZ Inspection of Lower Intestinal Tract, Via Natural or Artificial Opening Endoscopic (ICD-10-PCS; CPT 45378; principal; 2023-12-27 06:55)
DX: K25.0 Acute gastric ulcer with hemorrhage (principal); J44.9 Chronic obstructive pulmonary disease, unspecified; E11.9 Type 2 diabetes mellitus without complications; K31.84 Gastroparesis; K21.00 Gastro-esophageal reflux disease with esophagitis, without bleeding; K22.10 Ulcer of esophagus without bleeding; D64.9 Anemia, unspecified; K59.00 Constipation, unspecified; I10 Essential (primary) hypertension; Z79.899 Other long term (current) drug therapy; Z79.01 Long term (current) use of anticoagulants
CPT/HCPCS: 45378; 82962; J7120; J2405